=== PATIENT | male | born 1955 | race Asian ===

== ENCOUNTER 2020-03-23 00:35 | Inpatient (IN) | payer MEDICAID ==
[~2020-03-23] VITALS: Ht 165.1 cm; Wt 55.1 kg
[2020-03-23] VITALS (12 sets, daily range): BP systolic 88–109; BP diastolic 52–86
--- NOTE | 2020-03-23 00:36 | NUR ---
ED Nurse Note: patient brought in by ambulance with complaints chest pain x 1 week, 07/08. Patient presents lethargic, A&Ox4 and with an 18 at left AC. Will continue to monitor for orders.
--- NOTE | 2020-03-23 00:53 | Emergency Room Report ---
History of Present Illness General Source: EMS Present Illness HPI Patient is a 64-year-old male presents via ambulance after increased chest tightness and shortness of breath. Patient had onset of symptoms approximately 1 week ago. Patient had reportedly had prior history of anemia as well as some lung disease and is currently a smoker approximately 2 cigarettes a day. Prior history of congestive heart failure and atrial fibrillation. He is on anticoagulation but does not recall what medication he is taking. Reports having previous episodes of CHF in the past most recently seen at [facility] approximate 1 month ago. Denies any fever. Reports having intermittent cough. Increased orthopnea. Patient had not been having any vomiting but does report having some generalized abdominal pain. Patient does report having some prior history of anemia as well. Denies any bleeding. Allergies: Coded Allergies: No Known Allergies (Unverified , 03/23/20) COVID-19 Screening Contact w/high risk pt: No Recent Travel to affected area: No Experienced COVID-19 symptoms?: No Patient History Past Medical History: see triage record Reviewed Nursing Documentation: PMH: Agreed; PSxH: Agreed Review of Systems All Other Systems: negative except mentioned in HPI Physical Exam Vital Signs Date Time Temp Pulse Resp B/P (MAP) Pulse Ox O2 Delivery O2 Flow Rate FiO2 03/23/20 00:36 98.4 100 18 102/86 (91) 96 Room Air Sp02 EP Interpretation: reviewed, normal General Appearance: normal inspection, well appearing, no apparent distress, alert, GCS 15 Head: atraumatic ENT: normal ENT inspection, hearing grossly normal, normal voice Neck: normal inspection, full range of motion, supple, no bony tend Respiratory: normal inspection, lungs clear, normal breath sounds, no respiratory distress, no retraction, no wheezing Cardiovascular #1: regular rate, rhythm, no edema, JVD Gastrointestinal: normal inspection, normal bowel sounds, non tender, soft, no guarding, no hernia Genitourinary: no CVA tenderness Musculoskeletal: normal inspection, back normal, normal range of motion Neurologic: alert, motor strength/tone normal, quality auditor III-XII nml as tested, oriented x3, responsive, speech normal, normal inspection Psychiatric: normal inspection, judgement/insight normal, mood/affect normal Medical Decision Making Diagnostic Impression: Primary Impression: Chest pain Additional Impressions: Renal insufficiency Anemia CHF (congestive heart failure) ER Course Patient presented for chest pain and shortness of breath. Differential diagnosis include was not limited to pneumonia, myocardial infarction, congestive heart failure exacerbation, COPD, pericardial effusion among others. Because of complexity of patient's case laboratory tests and imaging studies were ordered. Patient's initial EKG showed atrial fibrillation with normal ventricular response. Patient had been given IV fluids by EMS however he does appear to be somewhat fluid overloaded. He was noted to be mildly hypotensive.Patient was given IV Bumex. Dr. hRoda Beverly was contacted for [facility] for panel physician admission Laboratory Tests Test 03/23/20 00:56 White Blood Count 7.0 K/UL (4.8-10.8) Red Blood Count 3.26 M/UL (4.70-6.10) L Hemoglobin 8.3 G/DL (14.2-18.0) L Hematocrit 25.4 % (42.0-52.0) L Mean Corpuscular Volume 78 FL (80-99) L Mean Corpuscular Hemoglobin 25.4 PG (27.0-31.0) L Mean Corpuscular Hemoglobin Concent 32.6 G/DL (32.0-36.0) Red Cell Distribution Width 20.1 % (11.6-14.8) H Platelet Count 244 K/UL (150-450) Mean Platelet Volume 6.5 FL (6.5-10.1) Neutrophils (%) (Auto) 68.4 % (45.0-75.0) Lymphocytes (%) (Auto) 20.1 % (20.0-45.0) Monocytes (%) (Auto) 10.0 % (1.0-10.0) Eosinophils (%) (Auto) 0.3 % (0.0-3.0) Basophils (%) (Auto) 1.2 % (0.0-2.0) Prothrombin Time 24.9 SEC (9.30-11.50) H Prothrombin Time INR 2.5 (0.9-1.1) H Activated Partial Thromboplast Time 35 SEC (23-33) H D-Dimer 0.49 mg/L FEU (0.00-0.49) Sodium Level 139 MMOL/L (136-145) Potassium Level 4.9 MMOL/L (3.5-5.1) Chloride Level 101 MMOL/L (98-107) Carbon Dioxide Level 23 MMOL/L (21-32) Anion Gap 15 mmol/L (5-15) Blood Urea Nitrogen 62 mg/dL (7-18) H Creatinine 3.3 MG/DL (0.55-1.30) H Estimated Glomerular Filtration Rate 19.0 mL/min (>60) Glucose Level 64 MG/DL (74-106) L Calcium Level 9.0 MG/DL (8.5-10.1) Total Bilirubin 1.5 MG/DL (0.2-1.0) H Direct Bilirubin 1.2 MG/DL (0.0-0.3) H Aspartate Amino Transferase (AST) 67 U/L (15-37) H Alanine Aminotransferase (ALT) 54 U/L (12-78) Alkaline Phosphatase 207 U/L (46-116) H Troponin I 0.030 ng/mL (0.000-0.056) Pro-B-Type Natriuretic Peptide 70380 pg/mL (0-125) H Total Protein 7.6 G/DL (6.4-8.2) Albumin 3.4 G/DL (3.4-5.0) Globulin 4.2 g/dL Albumin/Globulin Ratio 0.8 (1.0-2.7) L Lipase 181 U/L (73-393) Differential Total Cells Counted Neutrophils % (Manual) Lymphocytes % (Manual) Monocytes % (Manual) Eosinophils % (Manual) Basophils % (Manual) Band Neutrophils Platelet Estimate Platelet Morphology Hypochromasia Anisocytosis Microcytosis Spherocytes Hemoglobin A1c Magnesium Level Triglycerides Level Cholesterol Level LDL Cholesterol HDL Cholesterol Cholesterol/HDL Ratio Thyroid Stimulating Hormone (TSH) Test 03/24/20 09:10 White Blood Count 5.1 K/UL (4.8-10.8) Red Blood Count 3.16 M/UL (4.70-6.10) L Hemoglobin 7.9 G/DL (14.2-18.0) L Hematocrit 24.8 % (42.0-52.0) L Mean Corpuscular Volume 79 FL (80-99) L Mean Corpuscular Hemoglobin 25.0 PG (27.0-31.0) L Mean Corpuscular Hemoglobin Concent 31.8 G/DL (32.0-36.0) L Red Cell Distribution Width 19.8 % (11.6-14.8) H Platelet Count 227 K/UL (150-450) Mean Platelet Volume 6.2 FL (6.5-10.1) L Neutrophils (%) (Auto) % (45.0-75.0) Lymphocytes (%) (Auto) % (20.0-45.0) Monocytes (%) (Auto) % (1.0-10.0) Eosinophils (%) (Auto) % (0.0-3.0) Basophils (%) (Auto) % (0.0-2.0) Differential Total Cells Counted 100 Neutrophils % (Manual) 80 % (45-75) H Lymphocytes % (Manual) 11 % (20-45) L Monocytes % (Manual) 8 % (1-10) Eosinophils % (Manual) 0 % (0-3) Basophils % (Manual) 1 % (0-2) Band Neutrophils 0 % (0-8) Platelet Estimate Adequate Platelet Morphology Normal Hypochromasia 3+ Anisocytosis 2+ Microcytosis 1+ Urine Random Total Protein Urine Random Sodium Urine Creatinine EKG Diagnostic Results Rate: normal Rhythm: NSR ST Segments: no acute changes Last Vital Signs Date Time Temp Pulse Resp B/P (MAP) Pulse Ox O2 Delivery O2 Flow Rate FiO2 03/23/20 00:36 98.4 100 18 102/86 (91) 96 Room Air Status: unchanged Disposition: ADMITTED INPATIENT Condition: Serious Scripts Unable to Obtain Active Prescriptions or Reported MedBalta Groves MD Mar 23, 2020 00:53
[2020-03-23] MEDS ORDERED: Nitroglycerin 2% oint pkt TOPIC ONE (01:00)
[2020-03-23 01:11] LABS: BASOPHILS % (AUTO) 1.2 % (0.0-2.0); EOSINOPHILS % (AUTO) 0.3 % (0.0-3.0); HEMATOCRIT 25.4 % (42.0-52.0); HEMOGLOBIN 8.3 G/DL (14.2-18.0); LYMPHOCYTES % (AUTO) 20.1 % (20.0-45.0); MEAN CORPUSCULAR VOLUME 78 FL (80-99); NEUTROPHILS % (AUTO) 68.4 % (45.0-75.0); PLATELET COUNT 244 K/UL (150-450); RED BLOOD COUNT 3.26 M/UL (4.70-6.10); RED CELL DISTRIBUTION WIDTH 20.1 % (11.6-14.8)
[2020-03-23 01:14] LABS: ANION GAP 15 mmol/L (5-15); BLOOD UREA NITROGEN 62 mg/dL (7-18); CARBON DIOXIDE 23 MMOL/L (21-32); CHLORIDE 101 MMOL/L (98-107); CREATININE 3.3 MG/DL (0.55-1.30); POTASSIUM 4.9 MMOL/L (3.5-5.1); SODIUM 139 MMOL/L (136-145)
--- NOTE | 2020-03-23 01:20 | NUR ---
ED Nurse Note: Patient is sleeping with no physical s/s of acute distress. Will continue to monitor for testing results.
[2020-03-23 01:26] LABS: ALANINE AMINOTRANSFERASE 54 U/L (12-78); ALBUMIN 3.4 G/DL (3.4-5.0); ALBUMIN/GLOBULIN RATIO 0.8 (1.0-2.7); ALKALINE PHOSPHATASE 207 U/L (46-116); ASPARTATE AMINO TRANSFERASE 67 U/L (15-37); BILIRUBIN,TOTAL 1.5 MG/DL (0.2-1.0)
[2020-03-23 01:29] LABS: BILIRUBIN,DIRECT 1.2 MG/DL (0.0-0.3)
[2020-03-23] MEDS ORDERED: Bumetanide 0.25mg/ml 4ml IV ONE (01:45)
[2020-03-23 01:47] LABS: INR 2.5 (0.9-1.1)
--- NOTE | 2020-03-23 02:08 | Diagnostic Imaging Report ---
EXAM: XR Chest, 1 View CLINICAL HISTORY: SOB TECHNIQUE: Frontal view of the chest. COMPARISON: No relevant prior studies available. FINDINGS: Lungs: See below. Pleural space: Probable left-sided pleural effusion and atelectasis. Heart: Marked enlargement the cardiomediastinal silhouette. Underlying pericardial effusion is not excluded. Consider CT of the chest. Mediastinum: Unremarkable. Bones/joints: Unremarkable. IMPRESSION: 1. Marked enlargement the cardiomediastinal silhouette. Underlying pericardial effusion is not excluded. Consider CT of the chest. 2. Probable left-sided pleural effusion and atelectasis.
--- NOTE | 2020-03-23 02:34 | NUR ---
ED Nurse Note: Patient currently sleeping with no s/s of acute distress. will continue to monitor.
--- NOTE | 2020-03-23 03:34 | NUR ---
ED Nurse Note: Patient is sleeping with no s/s of acute distress. Will continue to monitor trending low blood pressure. Note that patient is on left lateral side and BP reflects change in position.
--- NOTE | 2020-03-23 04:44 | NUR ---
ED Nurse Note: Patient is sleeping with no physical s/s of acute distress.
--- NOTE | 2020-03-23 05:23 | NUR ---
ED Nurse Note: Patietn able to ambulate to the restroom with steady gait. Patient provided with ice upon request. Will continue to monitor for impending orders.
[2020-03-23] MEDS ORDERED: Heparin 5000 units/ml inj SUBQ SCH (06:00)
--- NOTE | 2020-03-23 06:30 | NUR ---
ED Nurse Note: Called covering MD to render admit orders.
[2020-03-23] MEDS ORDERED: HYDROmorphone 2mg tab ORAL PRN (06:45)
[2020-03-23] MEDS ORDERED: fentaNYL 100 mcg/2 mL IV ONE (06:45)
--- NOTE | 2020-03-23 07:13 | NUR ---
HAND-OFF: Report given to Bhumi Heath RN.
--- NOTE | 2020-03-23 08:00 | NUR ---
ED Nurse Note: Established another IV site on RT hand 20G, intact and patent.
--- NOTE | 2020-03-23 08:02 | NUR ---
ED Nurse Note: Received pt from ZENA Cast. Pt on bed, sleeping, VSS on RA, NAD noted. Breathing unlabored and spontaneous. Safety measures in placed. Morning bloodworks collected, called and verified labs. Will continue to monitor pt.
--- NOTE | 2020-03-23 08:10 | Consultation ---
History of Present Illness General Chief Complaint: Chest Pain Present Illness Allergies: Coded Allergies: No Known Allergies (Unverified , 03/23/20) Medication History Unable to Obtain Active Prescriptions or Reported Meds Patient History Healthcare decision maker Resuscitation status Advanced Directive on File Physical Exam Last 24 Hour Vital Signs Date Time Temp Pulse Resp B/P (MAP) Pulse Ox O2 Delivery O2 Flow Rate FiO2 03/23/20 07:35 98.4 85 24 89/70 98 Room Air 03/23/20 07:12 98.4 03/23/20 05:15 98.4 89 22 93/60 98 Room Air 03/23/20 04:26 98.4 92 25 89/58 96 Room Air 03/23/20 03:00 98.4 92 27 97/64 96 Room Air 03/23/20 02:00 98.4 91 24 88/65 97 Room Air 03/23/20 01:00 98.4 95 30 94/63 97 Room Air 03/23/20 00:52 98/65 03/23/20 00:36 98.4 100 18 102/86 (91) 96 Room Air 03/23/20 00:36 98.4 100 18 102/86 96 Room Air 03/23/20 00:36 100 18 Room Air Intake and Output 03/22/20 03/23/20 19:00 07:00 Intake Total 0 ml Balance 0 ml Intake Oral 0 ml Laboratory Tests Test 03/23/20 00:56 03/23/20 07:48 White Blood Count 7.0 K/UL (4.8-10.8) Red Blood Count 3.26 M/UL (4.70-6.10) L Hemoglobin 8.3 G/DL (14.2-18.0) L Hematocrit 25.4 % (42.0-52.0) L Mean Corpuscular Volume 78 FL (80-99) L Mean Corpuscular Hemoglobin 25.4 PG (27.0-31.0) L Mean Corpuscular Hemoglobin Concent 32.6 G/DL (32.0-36.0) Red Cell Distribution Width 20.1 % (11.6-14.8) H Platelet Count 244 K/UL (150-450) Mean Platelet Volume 6.5 FL (6.5-10.1) Neutrophils (%) (Auto) 68.4 % (45.0-75.0) Lymphocytes (%) (Auto) 20.1 % (20.0-45.0) Monocytes (%) (Auto) 10.0 % (1.0-10.0) Eosinophils (%) (Auto) 0.3 % (0.0-3.0) Basophils (%) (Auto) 1.2 % (0.0-2.0) Prothrombin Time 24.9 SEC (9.30-11.50) H Prothromb Time International Ratio 2.5 (0.9-1.1) H Activated Partial Thromboplast Time 35 SEC (23-33) H D-Dimer 0.49 mg/L FEU (0.00-0.49) Sodium Level 139 MMOL/L (136-145) Potassium Level 4.9 MMOL/L (3.5-5.1) Chloride Level 101 MMOL/L (98-107) Carbon Dioxide Level 23 MMOL/L (21-32) Anion Gap 15 mmol/L (5-15) Blood Urea Nitrogen 62 mg/dL (7-18) H Creatinine 3.3 MG/DL (0.55-1.30) H Estimat Glomerular Filtration Rate 19.0 mL/min (>60) Glucose Level 64 MG/DL (74-106) L Calcium Level 9.0 MG/DL (8.5-10.1) Total Bilirubin 1.5 MG/DL (0.2-1.0) H Direct Bilirubin 1.2 MG/DL (0.0-0.3) H Aspartate Amino Transf (AST/SGOT) 67 U/L (15-37) H Alanine Aminotransferase (ALT/SGPT) 54 U/L (12-78) Alkaline Phosphatase 207 U/L (46-116) H Troponin I 0.030 ng/mL (0.000-0.056) Pending Pro-B-Type Natriuretic Peptide 59400 pg/mL (0-125) H Total Protein 7.6 G/DL (6.4-8.2) Albumin 3.4 G/DL (3.4-5.0) Globulin 4.2 g/dL Albumin/Globulin Ratio 0.8 (1.0-2.7) L Lipase 181 U/L (73-393) Height (Feet): 5 Height (Inches): 5.00 Weight (Pounds): 150 Medications Current Medications Medications (Trade) Dose Ordered Sig/Hunter Route PRN Reason Start Time Stop Time Status Last Admin Dose Admin Aspirin (ASA) 81 mg DAILY ORAL 03/23/20 09:00 05/07/20 08:59 Dextrose (Dextrose 50%) 25 ml Q30M PRN IV Hypoglycemia 03/23/20 04:15 06/21/20 04:14 Dextrose (Dextrose 50%) 50 ml Q30M PRN IV Hypoglycemia 03/23/20 04:15 06/21/20 04:14 Docusate Sodium (Colace) 100 mg EVERY 12 HOURS ORAL 03/23/20 09:00 04/22/20 08:59 Heparin Sodium (Porcine) (Heparin 5000 units/ml) 5,000 units EVERY 8 HOURS SUBQ 03/23/20 06:00 05/07/20 05:59 03/23/20 05:50 Hydromorphone HCl (Dilaudid) 2 mg Q4HR PRN ORAL Severe Pain (Pain Scale 7-10) 03/23/20 06:45 03/30/20 06:44 UNV Ondansetron HCl (Zofran) 4 mg Q6H PRN IVP Nausea & Vomiting 03/23/20 04:15 04/22/20 04:14 Gini Spann M.D. Mar 23, 2020 08:10
[2020-03-23] MEDS ORDERED: Aspirin Baby 81mg ORAL SCH (09:00)
--- NOTE | 2020-03-23 09:10 | NUR ---
ED Nurse Note: US tech at bedside.
--- NOTE | 2020-03-23 11:00 | NUR ---
NURSE NOTES: Received report from ZENA Garnett @ ER. The patient came in for chest pain x 4 days with accompanying symptoms of shortness of breath, chest pain, chest tightness, orthopnea. Administered Nitro patch, diuretic, and pain medication but still has 5/10 pain on chest. The patient's belongings checked with the patient at the bedside and confirmed by the patient and two nurses. Medical, surgical, allergy, and social history taken by the primary nurse. Admitting EKG strip obtained. Unable to do medication reconciliation since he does not have medication list and does not recall the name of the medication. The patient has R hand 20G intact and patent. Per patient, he does not have POLST. Initial vital signs taken. The patient's skin is intact. Paged Dr. Fernandez regarding the admission order and the patient's persistent chest pain even with the interventions at ER. Will continue plan of care.
--- NOTE | 2020-03-23 11:58 | History and Physical ---
History of Present Illness General Date patient seen: Mar 23, 2020 Reason for Hospitalization: Chest Pain Present Illness HPI 64 yo M w/ MMP PMHx A fib, CHF, Smoker w/ possible COPD presented t the ED via EMS for several days of CP and SOB. Pt reports 1 week of progressive chest heaviness and pain. Pain is described as moderate, constant w/ waxing and waning , not worse w/ exertion. Also reports bl le edema and dry cough. In the ED pt was a febrile and with BP in the 80s to 100 systolic. Labs notable for BNP 13783, Tn neg x 2, EKG a fib w/ good rate control, CXR showed pleural effusion. Cr 3.3 (baseline unknown), AST elevated and Bili elevated. Pt received nitro and bumex in the ED. At time of evaluation pt was c/w persistent chest discomfort, LE edam was trace, + JVD. Pt unable to provide medication list or recall, somewhat of a poor historian. Allergies: Coded Allergies: No Known Allergies (Unverified , 03/23/20) COVID-19 Screening Contact w/high risk pt: No Recent Travel to affected area: No Experienced COVID-19 symptoms?: No Medication History Unable to Obtain Active Prescriptions or Reported Meds Patient History History Provided By: Patient, Medical Record Healthcare decision maker Resuscitation status Advanced Directive on File Review of Systems Constitutional: Denies: no symptoms, see HPI, chills, sweats, fever, malaise, weakness, other Eye: Denies: no symptoms, see HPI, eye pain, blurred vision, tearing, double vision, nose pain, nose congestion, acuity changes, discharge, other Respiratory: Reports: see HPI Cardiovascular: Reports: see HPI Gastrointestinal: Denies: no symptoms, see HPI, abdominal pain, constipation, diarrhea, nausea, vomiting, melena, hematemesis, other Genitourinary: Denies: no symptoms, see HPI, discharge, dysuria, frequency, hematuria, pain, retention, incontinence, urgency, vag bleed/dc, other Musculoskeletal: Denies: no symptoms, see HPI, back pain, gout, joint pain, joint swelling, muscle pain, muscle stiffness, other Neurological: Denies: no symptoms, see HPI, headache, numbness, paresthesia, seizure, tingling, tremors, focal weakness, syncope, dizziness, other Physical Exam General Appearance: WD/WN, no apparent distress, alert HEENT: normocephalic, atraumatic, PERRL, EOMI Neck: normal alignment, supple Respiratory/Chest: lungs clear, normal breath sounds, no respiratory distress, no accessory muscle use Cardiovascular/Chest: normal peripheral pulses, regularly irregular, no gallop/ murmur, JVD Abdomen: normal bowel sounds, non tender, soft Extremities: no edema Neurologic: associate chemist II-XII grossly normal, alert, normal mood/affect Last 24 Hour Vital Signs Date Time Temp Pulse Resp B/P (MAP) Pulse Ox O2 Delivery O2 Flow Rate FiO2 03/23/20 10:18 98.3 84 22 109/71 98 Room Air 03/23/20 10:09 98.3 84 22 109/71 98 Room Air 03/23/20 07:35 98.4 85 24 89/70 98 Room Air 03/23/20 07:12 98.4 03/23/20 05:15 98.4 89 22 93/60 98 Room Air 03/23/20 04:26 98.4 92 25 89/58 96 Room Air 03/23/20 03:00 98.4 92 27 97/64 96 Room Air 03/23/20 02:00 98.4 91 24 88/65 97 Room Air 03/23/20 01:00 98.4 95 30 94/63 97 Room Air 03/23/20 00:52 98/65 03/23/20 00:36 98.4 100 18 102/86 (91) 96 Room Air 03/23/20 00:36 98.4 100 18 102/86 96 Room Air 03/23/20 00:36 100 18 Room Air Intake and Output 03/22/20 03/23/20 19:00 07:00 Intake Total 0 ml Balance 0 ml Intake Oral 0 ml Laboratory Tests Test 03/23/20 00:56 03/23/20 07:48 White Blood Count 7.0 K/UL (4.8-10.8) Red Blood Count 3.26 M/UL (4.70-6.10) L Hemoglobin 8.3 G/DL (14.2-18.0) L Hematocrit 25.4 % (42.0-52.0) L Mean Corpuscular Volume 78 FL (80-99) L Mean Corpuscular Hemoglobin 25.4 PG (27.0-31.0) L Mean Corpuscular Hemoglobin Concent 32.6 G/DL (32.0-36.0) Red Cell Distribution Width 20.1 % (11.6-14.8) H Platelet Count 244 K/UL (150-450) Mean Platelet Volume 6.5 FL (6.5-10.1) Neutrophils (%) (Auto) 68.4 % (45.0-75.0) Lymphocytes (%) (Auto) 20.1 % (20.0-45.0) Monocytes (%) (Auto) 10.0 % (1.0-10.0) Eosinophils (%) (Auto) 0.3 % (0.0-3.0) Basophils (%) (Auto) 1.2 % (0.0-2.0) Prothrombin Time 24.9 SEC (9.30-11.50) H Prothromb Time International Ratio 2.5 (0.9-1.1) H Activated Partial Thromboplast Time 35 SEC (23-33) H D-Dimer 0.49 mg/L FEU (0.00-0.49) Sodium Level 139 MMOL/L (136-145) Potassium Level 4.9 MMOL/L (3.5-5.1) Chloride Level 101 MMOL/L (98-107) Carbon Dioxide Level 23 MMOL/L (21-32) Anion Gap 15 mmol/L (5-15) Blood Urea Nitrogen 62 mg/dL (7-18) H Creatinine 3.3 MG/DL (0.55-1.30) H Estimat Glomerular Filtration Rate 19.0 mL/min (>60) Glucose Level 64 MG/DL (74-106) L Calcium Level 9.0 MG/DL (8.5-10.1) Total Bilirubin 1.5 MG/DL (0.2-1.0) H Direct Bilirubin 1.2 MG/DL (0.0-0.3) H Aspartate Amino Transf (AST/SGOT) 67 U/L (15-37) H Alanine Aminotransferase (ALT/SGPT) 54 U/L (12-78) Alkaline Phosphatase 207 U/L (46-116) H Troponin I 0.030 ng/mL (0.000-0.056) 0.016 ng/mL (0.000-0.056) Pro-B-Type Natriuretic Peptide 82624 pg/mL (0-125) H Total Protein 7.6 G/DL (6.4-8.2) Albumin 3.4 G/DL (3.4-5.0) Globulin 4.2 g/dL Albumin/Globulin Ratio 0.8 (1.0-2.7) L Lipase 181 U/L (73-393) Height (Feet): 5 Height (Inches): 5.00 Weight (Pounds): 150 Medications Current Medications Medications (Trade) Dose Ordered Sig/Hunter Route PRN Reason Start Time Stop Time Status Last Admin Dose Admin Acetaminophen/ Hydrocodone Bitart ([place] 5/325) 1 tab Q4H PRN ORAL Moderate Pain (Pain Scale 4-6) 03/23/20 11:30 03/30/20 11:29 Aspirin (ASA) 81 mg DAILY ORAL 03/23/20 09:00 05/07/20 08:59 Dextrose (Dextrose 50%) 25 ml Q30M PRN IV Hypoglycemia 03/23/20 04:15 06/21/20 04:14 Dextrose (Dextrose 50%) 50 ml Q30M PRN IV Hypoglycemia 03/23/20 04:15 06/21/20 04:14 Docusate Sodium (Colace) 100 mg EVERY 12 HOURS ORAL 03/23/20 09:00 04/22/20 08:59 Enoxaparin Sodium (Lovenox) 70 mg Q24H SUBQ 03/23/20 14:00 06/21/20 13:59 Hydromorphone HCl (Dilaudid) 2 mg Q4H PRN ORAL Severe Pain (Pain Scale 7-10) 03/23/20 06:45 03/30/20 06:44 Ondansetron HCl (Zofran) 4 mg Q6H PRN IVP Nausea & Vomiting 03/23/20 04:15 04/22/20 04:14 Assessment/Plan Assessment/Plan: 64 yo M w/ MMP PMHx A fib, CHF, Smoker w/ possible COPD presented t the ED via EMS for several days of CP and SOB. Pt reports 1 week of progressive chest heaviness and pain. Pain is described as moderate, constant w/ waxing and waning , not worse w/ exertion. Also reports bl le edema and dry cough. #Chest pain, atypical #Acute decompensated CHF #A fib, rate controlled - admit to in pt - cardiology consult - bilingual operator - Lovenox tx dose for a fib (dose adj per pharm for renal insuf) (need to clarify home ac regimen) - serial tn/ekg - TTE - s/p bumex 1mg IV x 1 in ED - start bumex 1mg IV BID - goal neg 100oml / day, strict I/Os - trend chem, goal k > 4, mag > 2 - pain control - supportive care #COPD, suspected #Current smoker #Pleural effusion, due to CHF - nebs prn sob/wheeze - nicotine patch offered, refused - ctm resp status and effusion, may need throa - sup o2 as needed #AALIYAH, suspect cardiorenal syndrome (baseline cr unknown) - diuresis as above - trend cr - avoid nephro toxic meds #Transaminitis, AST elevation #Hyperbilirubinemia - suspect due to hepatic congestion - trend LFTs - can consider ABD us if not improving #FEN/PPx - 1500cc fluid restriction - trend chem, replete lytes as needed - cardiac diet - Full ac for a fib as above FULL CODE I spent 65 min on this case and 29 min was dedicated to counseling and care coordination including discussion including communication w/ overnight coverage , consultants, RN at bedside and ER MD. Time of this note may not reflect the time of the clinical encounter. Adama Davis MD Mar 23, 2020 11:58
[2020-03-23] MEDS: Docusate 100mg cap ORAL SCH ×2 (12:00→21:41)
--- NOTE | 2020-03-23 12:00 | NUR ---
NURSE NOTES: Late administration of 0900 medication as the patient came on the floor later than 1100. Also administered Post as PRN medication for moderate pain. The patient's vital signs stable. Per patient, chest pain got improved over time. Will closely monitor the patient.
[2020-03-23] MEDS: HYDROcodone/Acetamin 5/325 tab ORAL PRN ×2 (12:01→17:29)
--- NOTE | 2020-03-23 12:30 | NUR ---
NURSE NOTES: Informed Dr. Luther regarding new consult. The patient is sleeping on the bed without acute distress or shortness of breath. Will continue plan of care.
--- NOTE | 2020-03-23 13:10 | NUR ---
NURSE NOTES: Notified Dr. Luther and Dr. Davis regarding abnormal condition of EF of 10-15%, continuous chest pain, extreme bradycardia episode with lowest HR of 38, and A fib. Will await for the order. Will continue plan of care.
[2020-03-23] MEDS ORDERED: Enoxaparin 80mg Inj SUBQ SCH (14:00)
--- NOTE | 2020-03-23 15:00 | NUR ---
NURSE NOTES: Dr. Luther at the bedside assessed the patient. Dr. Luther ordered fixed dose of Dobutamine drip and central line placement for dobutamine drip. Charge nurse was notified. Dr. Castelan and ER paged for placement and awaiting for response. Will closely monitor the patient.
--- NOTE | 2020-03-23 15:16 | Cardiac Electrophysiology PN ---
Subjective Subjective [id number] Objective Last 24 Hour Vital Signs Date Time Temp Pulse Resp B/P (MAP) Pulse Ox O2 Delivery O2 Flow Rate FiO2 03/23/20 12:44 Room Air 03/23/20 12:00 97.3 94 18 102/59 (73) 97 03/23/20 11:40 82 03/23/20 11:00 97.2 81 18 97/67 (77) 99 03/23/20 10:39 100 03/23/20 10:18 98.3 84 22 109/71 98 Room Air 03/23/20 10:09 98.3 84 22 109/71 98 Room Air 03/23/20 07:35 98.4 85 24 89/70 98 Room Air 03/23/20 07:12 98.4 03/23/20 05:15 98.4 89 22 93/60 98 Room Air 03/23/20 04:26 98.4 92 25 89/58 96 Room Air 03/23/20 03:00 98.4 92 27 97/64 96 Room Air 03/23/20 02:00 98.4 91 24 88/65 97 Room Air 03/23/20 01:00 98.4 95 30 94/63 97 Room Air 03/23/20 00:52 98/65 03/23/20 00:36 98.4 100 18 102/86 (91) 96 Room Air 03/23/20 00:36 98.4 100 18 102/86 96 Room Air 03/23/20 00:36 100 18 Room Air Intake and Output 03/22/20 03/23/20 19:00 07:00 Intake Total 0 ml Balance 0 ml Intake Oral 0 ml Laboratory Tests Test 03/23/20 00:56 03/23/20 07:48 White Blood Count 7.0 K/UL (4.8-10.8) Red Blood Count 3.26 M/UL (4.70-6.10) L Hemoglobin 8.3 G/DL (14.2-18.0) L Hematocrit 25.4 % (42.0-52.0) L Mean Corpuscular Volume 78 FL (80-99) L Mean Corpuscular Hemoglobin 25.4 PG (27.0-31.0) L Mean Corpuscular Hemoglobin Concent 32.6 G/DL (32.0-36.0) Red Cell Distribution Width 20.1 % (11.6-14.8) H Platelet Count 244 K/UL (150-450) Mean Platelet Volume 6.5 FL (6.5-10.1) Neutrophils (%) (Auto) 68.4 % (45.0-75.0) Lymphocytes (%) (Auto) 20.1 % (20.0-45.0) Monocytes (%) (Auto) 10.0 % (1.0-10.0) Eosinophils (%) (Auto) 0.3 % (0.0-3.0) Basophils (%) (Auto) 1.2 % (0.0-2.0) Prothrombin Time 24.9 SEC (9.30-11.50) H Prothromb Time International Ratio 2.5 (0.9-1.1) H Activated Partial Thromboplast Time 35 SEC (23-33) H D-Dimer 0.49 mg/L FEU (0.00-0.49) Sodium Level 139 MMOL/L (136-145) Potassium Level 4.9 MMOL/L (3.5-5.1) Chloride Level 101 MMOL/L (98-107) Carbon Dioxide Level 23 MMOL/L (21-32) Anion Gap 15 mmol/L (5-15) Blood Urea Nitrogen 62 mg/dL (7-18) H Creatinine 3.3 MG/DL (0.55-1.30) H Estimat Glomerular Filtration Rate 19.0 mL/min (>60) Glucose Level 64 MG/DL (74-106) L Calcium Level 9.0 MG/DL (8.5-10.1) Total Bilirubin 1.5 MG/DL (0.2-1.0) H Direct Bilirubin 1.2 MG/DL (0.0-0.3) H Aspartate Amino Transf (AST/SGOT) 67 U/L (15-37) H Alanine Aminotransferase (ALT/SGPT) 54 U/L (12-78) Alkaline Phosphatase 207 U/L (46-116) H Troponin I 0.030 ng/mL (0.000-0.056) 0.016 ng/mL (0.000-0.056) Pro-B-Type Natriuretic Peptide 35930 pg/mL (0-125) H Total Protein 7.6 G/DL (6.4-8.2) Albumin 3.4 G/DL (3.4-5.0) Globulin 4.2 g/dL Albumin/Globulin Ratio 0.8 (1.0-2.7) L Lipase 181 U/L (73-393) Jovi Luther MD Mar 23, 2020 15:16
[2020-03-23] MEDS ORDERED: DOBUTamine 250mg/250ml Premix 250 ML IV SCH ×2 (16:00)
--- NOTE | 2020-03-23 16:00 | NUR ---
NURSE NOTES: Unable to administer Dobutamine drip at this time since central line access has not placed yet. Paged ER again but was told that she cannot insert at this time due to heavy workload. Paged Dr. Castelan and was told that he is going for surgery and can come back for central line placement [address] Luther was notified regarding the case that the primary nurse was not able to start Dobutamine drip due to no access and no one is available to insert central line at this time. Called pharmacy to make sure and was told that dobutamine drip should be preferably administered via central line. Will wait for Dr. Castelan to come for insertion. Will closely monitor the patient.
[2020-03-23] MEDS ORDERED: Bumetanide 0.25mg/ml 4ml IV SCH (18:00)
--- NOTE | 2020-03-23 18:00 | NUR ---
NURSE NOTES: Medication administered per order. Awaiting for Dr. Castelan to insert central line to start dobutamine drip. Will closely monitor the patient.
[2020-03-23 18:22] LABS: ANION GAP 14 mmol/L (5-15); BLOOD UREA NITROGEN 71 mg/dL (7-18); CALCIUM 8.8 MG/DL (8.5-10.1); CARBON DIOXIDE 23 MMOL/L (21-32); CHLORIDE 103 MMOL/L (98-107); CREATININE 3.2 MG/DL (0.55-1.30); POTASSIUM 5.4 MMOL/L (3.5-5.1); SODIUM 140 MMOL/L (136-145)
--- NOTE | 2020-03-23 19:00 | NUR ---
NURSE NOTES: Dr. Castelan at the bedside for central line insertion. Right femoral central line inserted per order for dobutamine drip. Will closely monitor the patient. Will continue plan of care.
[2020-03-23] MEDS ORDERED: Lidocaine 1% 10mg/ml/EPI 0.01mg/ml 30ml INJ ONE (19:15)
[2020-03-23] MEDS ORDERED: Lidocaine 1% 10mg/ml/EPI 0.01mg/ml 30ml INJ SCH (19:15)
--- NOTE | 2020-03-23 19:30 | NUR ---
HAND-OFF: Report given to ZENA Stewart. The patient is resting on the bed without acute distress or shortness of breath. The patient's bed in the lowest position, call light in reach, and fall and aspiration precaution reinforce. IV site on R hand 20G intact and patent. Central line on right femoral is intact. 2L NC per order and saturation within normal range. Endorsed plan of care.
--- NOTE | 2020-03-23 19:35 | NUR ---
NURSE NOTES: Received pt from ZENA Alatorre. will continue plan of care.
--- NOTE | 2020-03-23 19:58 | Consultation ---
History of Present Illness General Date patient seen: Mar 23, 2020 Reason for Hospitalization: Chest Pain Present Illness HPI 64-year-old male presented with shortness of breath chest pain currently admitted for medical care and management identified to have renal insufficiency , hypotension, abnormal labs. On admission surgery called to evaluate and assist with care. Patient seen, patient [place], chart reviewed. Patient found to be very hypotensive requiring pressors. Central line/central venous catheter indicated and recommended. Remainder care plan as below. Patient Thai speaking is awake alert and responsive. Discussed with nursing staff as translation patient doing well no complaints at this time. Labs noted vitals noted imaging noted Allergies: Coded Allergies: No Known Allergies (Unverified , 03/23/20) COVID-19 Screening Contact w/high risk pt: No Recent Travel to affected area: No Experienced COVID-19 symptoms?: No COVID-19 symptoms experienced: Shortness of Breath Medication History Unable to Obtain Active Prescriptions or Reported Meds Patient History Limited by: language barrier History Provided By: Medical Record, PMD Healthcare decision maker Resuscitation status Full Code Advanced Directive on File Past Medical/Surgical History Past Medical/Surgical History: (1) Sepsis (2) Chest pain Review of Systems Review of Symptoms General ROS: no weight loss or fever Psychological ROS: no depression or mood changes, no memory loss Ophthalmic ROS: no visual changes or eye irritation ENT ROS: no nasal congestion, hearing loss, dizziness Allergy and Immunology ROS: no allergic symptoms or urticaria Hematological and Lymphatic ROS: no swollen glands, unusual bleeding or bruising Endocrine ROS: no polyuria, polydipsia, weight changes, temperature intolerance Respiratory ROS: no cough, shortness of breath, or wheezing Cardiovascular ROS: no chest pain or dyspnea on exertion Gastrointestinal ROS: denies abdominal pain, bright red blood in stool. Musculoskeletal ROS: no myalgias or arthralgias Neurological ROS: no TIA or stroke symptoms Dermatological ROS: no new or changing skin lesions, rashes or pruritis Physical Exam Physical Exam General appearance: alert, cooperative, no distress, appears stated age Head: Normocephalic, without obvious abnormality, atraumatic Eyes: conjunctivae/corneas clear. PERRL, EOM's intact. Fundi benign Throat: Lips, mucosa, and tongue normal. Teeth and gums normal Neck: supple, symmetrical, trachea midline, no adenopathy, thyroid: not enlarged, symmetric, no tenderness/mass/nodules, no carotid bruit and no JVD Lungs: clear to auscultation bilaterally Heart: regular rate and rhythm, S1, S2 normal, no murmur, click, rub or gallop Abdomen: soft, non-tender. Bowel sounds normal. No masses, no organomegaly Extremities: extremities normal, atraumatic, no cyanosis or edema Pulses: 2+ and symmetric Skin: Skin color, texture, turgor normal. No rashes or lesions Neurologic: Grossly normal Last 24 Hour Vital Signs Date Time Temp Pulse Resp B/P (MAP) Pulse Ox O2 Delivery O2 Flow Rate FiO2 03/23/20 16:00 Nasal Cannula 2.0 03/23/20 16:00 2.0 03/23/20 16:00 97.0 99 18 90/52 (65) 100 03/23/20 15:13 72 03/23/20 12:44 Room Air 03/23/20 12:00 97.3 94 18 102/59 (73) 97 03/23/20 12:00 Nasal Cannula 2.0 03/23/20 11:40 82 03/23/20 11:00 97.2 81 18 97/67 (77) 99 03/23/20 10:39 100 03/23/20 10:18 98.3 84 22 109/71 98 Room Air 03/23/20 10:09 98.3 84 22 109/71 98 Room Air 03/23/20 07:35 98.4 85 24 89/70 98 Room Air 03/23/20 07:12 98.4 03/23/20 05:15 98.4 89 22 93/60 98 Room Air 03/23/20 04:26 98.4 92 25 89/58 96 Room Air 03/23/20 03:00 98.4 92 27 97/64 96 Room Air 03/23/20 02:00 98.4 91 24 88/65 97 Room Air 03/23/20 01:00 98.4 95 30 94/63 97 Room Air 03/23/20 00:52 98/65 03/23/20 00:36 98.4 100 18 102/86 (91) 96 Room Air 03/23/20 00:36 98.4 100 18 102/86 96 Room Air 03/23/20 00:36 100 18 Room Air Intake and Output 03/22/20 03/23/20 19:00 07:00 Intake Total 0 ml Balance 0 ml Intake Oral 0 ml Laboratory Tests Test 03/23/20 00:56 03/23/20 07:48 03/23/20 17:45 White Blood Count 7.0 K/UL (4.8-10.8) Red Blood Count 3.26 M/UL (4.70-6.10) L Hemoglobin 8.3 G/DL (14.2-18.0) L Hematocrit 25.4 % (42.0-52.0) L Mean Corpuscular Volume 78 FL (80-99) L Mean Corpuscular Hemoglobin 25.4 PG (27.0-31.0) L Mean Corpuscular Hemoglobin Concent 32.6 G/DL (32.0-36.0) Red Cell Distribution Width 20.1 % (11.6-14.8) H Platelet Count 244 K/UL (150-450) Mean Platelet Volume 6.5 FL (6.5-10.1) Neutrophils (%) (Auto) 68.4 % (45.0-75.0) Lymphocytes (%) (Auto) 20.1 % (20.0-45.0) Monocytes (%) (Auto) 10.0 % (1.0-10.0) Eosinophils (%) (Auto) 0.3 % (0.0-3.0) Basophils (%) (Auto) 1.2 % (0.0-2.0) Prothrombin Time 24.9 SEC (9.30-11.50) H Prothromb Time International Ratio 2.5 (0.9-1.1) H Activated Partial Thromboplast Time 35 SEC (23-33) H D-Dimer 0.49 mg/L FEU (0.00-0.49) Sodium Level 139 MMOL/L (136-145) 140 MMOL/L (136-145) Potassium Level 4.9 MMOL/L (3.5-5.1) 5.4 MMOL/L (3.5-5.1) H Chloride Level 101 MMOL/L (98-107) 103 MMOL/L (98-107) Carbon Dioxide Level 23 MMOL/L (21-32) 23 MMOL/L (21-32) Anion Gap 15 mmol/L (5-15) 14 mmol/L (5-15) Blood Urea Nitrogen 62 mg/dL (7-18) H 71 mg/dL (7-18) H Creatinine 3.3 MG/DL (0.55-1.30) H 3.2 MG/DL (0.55-1.30) H Estimat Glomerular Filtration Rate 19.0 mL/min (>60) 19.7 mL/min (>60) Glucose Level 64 MG/DL (74-106) L 273 MG/DL (74-106) #H Calcium Level 9.0 MG/DL (8.5-10.1) 8.8 MG/DL (8.5-10.1) Total Bilirubin 1.5 MG/DL (0.2-1.0) H Direct Bilirubin 1.2 MG/DL (0.0-0.3) H Aspartate Amino Transf (AST/SGOT) 67 U/L (15-37) H Alanine Aminotransferase (ALT/SGPT) 54 U/L (12-78) Alkaline Phosphatase 207 U/L (46-116) H Troponin I 0.030 ng/mL (0.000-0.056) 0.016 ng/mL (0.000-0.056) 0.030 ng/mL (0.000-0.056) Pro-B-Type Natriuretic Peptide 79473 pg/mL (0-125) H Total Protein 7.6 G/DL (6.4-8.2) Albumin 3.4 G/DL (3.4-5.0) Globulin 4.2 g/dL Albumin/Globulin Ratio 0.8 (1.0-2.7) L Lipase 181 U/L (73-393) Height (Feet): 5 Height (Inches): 5.00 Weight (Pounds): 150 Medications Current Medications Medications (Trade) Dose Ordered Sig/Hunter Route PRN Reason Start Time Stop Time Status Last Admin Dose Admin Acetaminophen/ Hydrocodone Bitart ([place] 5/325) 1 tab Q4H PRN ORAL Moderate Pain (Pain Scale 4-6) 03/23/20 11:30 03/30/20 11:29 03/23/20 17:29 Aspirin (ASA) 81 mg DAILY ORAL 03/23/20 09:00 05/07/20 08:59 03/23/20 12:00 Bumetanide (Bumex) 1 mg BID IV 03/23/20 18:00 04/22/20 17:59 03/23/20 17:29 Dextrose (Dextrose 50%) 25 ml Q30M PRN IV Hypoglycemia 03/23/20 04:15 06/21/20 04:14 Dextrose (Dextrose 50%) 50 ml Q30M PRN IV Hypoglycemia 03/23/20 04:15 06/21/20 04:14 Dobutamine HCl 250 ml @ 20.412 mls/ hr Q24H IV 03/23/20 16:00 06/21/20 15:59 Docusate Sodium (Colace) 100 mg EVERY 12 HOURS ORAL 03/23/20 09:00 04/22/20 08:59 03/23/20 12:00 Enoxaparin Sodium (Lovenox) 70 mg Q24H SUBQ 03/23/20 14:00 06/21/20 13:59 03/23/20 14:12 Hydromorphone HCl (Dilaudid) 2 mg Q4H PRN ORAL Severe Pain (Pain Scale 7-10) 03/23/20 06:45 03/30/20 06:44 Lidocaine/ Epinephrine (Lidocaine 1%/ Epi 0.01mg 30ml) 30 ml ONCE INJ 03/23/20 19:15 03/23/20 21:00 Ondansetron HCl (Zofran) 4 mg Q6H PRN IVP Nausea & Vomiting 03/23/20 04:15 04/22/20 04:14 Assessment/Plan Problem List: (1) Renal insufficiency Assessment & Plan: 64-year-old male presented with shortness of breath chest pain currently admitted for medical care and management identified to have renal insufficiency, hypotension, abnormal labs. ICD Codes: N28.9 - Disorder of kidney and ureter, unspecified SNOMED: 479900858, 184175304 (2) Abnormal LFTs Assessment & Plan: Ultrasound required Ordered Trend labs We will follow-up ICD Codes: R94.5 - Abnormal results of liver function studies SNOMED: 904080097 (3) Hypotension Assessment & Plan: Patient with hypotension requiring pressors. Eval myself at the bedside central venous catheter indicated recommended Discussed with medical team nursing staff and care plan with patient Please see procedure note we will follow with recommendations ICD Codes: I95.9 - Hypotension, unspecified SNOMED: 17009291 Chuck Castelan Apr 25, 2020 19:58
--- NOTE | 2020-03-23 20:00 | Operative Note - PDOC ---
Operative Note Operative Note Date of Operation/Procedure: Mar 23, 2020 Pre-op Diagnosis: Hypotension Procedure: Right femoral central venous catheter insertion Post-op Diagnosis: same as pre-op Surgeon: Chuck Castelan MD Anesthesia: local Specimen: none Complications: none Condition: unstable Estimated Blood Loss: minimal Drains: none Implant(s) used?: No Indications for Procedure Please see consult note Description of Procedure Patient was made comfortable the bedside after all risk medicine alternatives discussed. Consent was obtained. Right groin was prepped draped in sterile surgical fashion. Right femoral vein was cannulated on first stick. Good venous flow noted. Guidewire was placed over the needle needle removed. Small skin incision was made around the guidewire and dilator was used. Triple-lumen catheter was placed over the guidewire without complication. Guidewire removed and discarded. All 3 ports flushed and aspirated appropriately without complication. Line sutured in place. Dressings applied. Patient taught procedure well. Will monitor. Okay to use for pressors immediately. Chuck Castelan Mar 23, 2020 20:00
--- NOTE | 2020-03-23 20:15 | NUR ---
NURSE NOTES: pt is observed resting in bed, AO X4, Occitan speaking, no s/sx of pain noted at this time. pt is on 2 L O2 via NC, tolerating well; no s/sx of respiratory distress noted. RH 20 G and LAC 20 G IV sites are patent and intact, asymptomatic. Right femoral central line is patent and intact, Dobutamine drip started at fixed rate of 5 mcg/kg/hr as ordered per MD. BP: 93/65, HR: 94, RR: 20, sat: 100%, Temp: 97.5. urinal at bedside. bed in lowest position and locked, siderails up X2, call light within reach. will continue to monitor.
[2020-03-23] MEDS ORDERED: Dyna-Hex 2% Top Sol 2oz TOPIC ONE (21:45)
[2020-03-24] VITALS: BP 112/61
--- NOTE | 2020-03-24 02:44 | Consultation ---
DATE OF CONSULTATION: 03/23/2020 CARDIOLOGY CONSULTATION CONSULTING PHYSICIAN: Jovi Luther MD. REFERRING PHYSICIAN: Dilshad Fernandez MD. REASON FOR CONSULTATION: Management of congestive heart failure and atrial fibrillation. HISTORY OF PRESENT ILLNESS: The patient is a 64-year-old gentleman with history of hypertension, congestive heart failure for 5-7 years per the patient without prior myocardial infarction or coronary artery disease, history of chronic atrial fibrillation, was on blood thinner at home as well as history of COPD, who was brought to the emergency room by paramedics for several days of increasing shortness of breath as well as chest tightness. In the emergency room, the patient had blood pressure in 80s to 100 and BNP of 15,000. Troponin were negative and EKG showed atrial fibrillation with controlled ventricular response. Chest x-ray showed pleural effusion. Creatinine was 3.3. Cardiology consultation was obtained for further evaluation. REVIEW OF SYSTEMS: Negative other than what is mentioned in the history of present illness. PAST MEDICAL HISTORY: As mentioned above. Apparently, he gets cardiology care at [facility]. FAMILY HISTORY: Noncontributory. SOCIAL HISTORY: He lives at home. Does smoke or drink alcohol. PHYSICAL EXAMINATION: VITAL SIGNS: Show blood pressure of 102/59, pulse 94, respirations 18, and temperature 97.3. HEAD AND NECK: Show positive JVD. LUNGS: Decreased breath sounds. CARDIOVASCULAR: Shows irregular S1 and S2 with no gallop or murmur. ABDOMEN: Soft. EXTREMITIES: A 1+ pitting edema. LABORATORY AND DIAGNOSTIC DATA: His chest x-ray showed increased cardiac silhouette and vascular congestion. The heart essentially completely effaces the whole chest. Labs show white count of 7, hemoglobin of 8.2, hematocrit 25.4, and platelet count is 244,000. Sodium 139, potassium is 4.9, BUN of 62, creatinine of 3.3, and glucose of 64. Troponin, negative x2. BNP is more than 15,000. ASSESSMENT AND PLAN: 1. Exacerbation of congestive heart failure in this patient with severe cardiomyopathy for many years. He is already on Bumex 1 mg IV b.i.d. Add hydralazine and Isordil to his medical regimen if the blood pressure allows. We will hold off on Coreg as the patient gets bradycardia with heart rate dropping to 30s and in atrial fibrillation. Avoid PRAVEEN inhibitor and angiotensin-receptor blockers in view of acute renal failure and creatinine of more than 3. 2. Atrial fibrillation. The rate is currently controlled. It actually goes in the 30s, off any AV-regis blocking agents. 3. Hypertension. Continue current medical therapy. 4. Renal failure, creatinine of 3.3. Keep the patient on Bumex. We may need to start the patient on dobutamine drip to improve contractility especially in view of the patient's renal failure. In the meantime, we will try to get the records from [facility] as he usually gets most of his cares at that center. 5. Anemia, hemoglobin of 8.3. Thank you very much for allowing me to participate in the care of this patient. Please do not hesitate to contact me for any questions regarding my evaluation. Jovi Luther M.D. DR: YAN JOB#: [id number] CC:
--- NOTE | 2020-03-24 03:44 | NUR ---
NURSE NOTES: Right femoral central catheter dressing noted to have bleeding. changed dressing using sterile technique. AM labs drawn via central line. pt tolerated well. no s/sx of distress noted. will continue to monitor.
[2020-03-24 04:00] VITALS: BP 111/70
[2020-03-24 06:01] LABS: HEMATOCRIT 22.4 % (42.0-52.0); HEMOGLOBIN 7.4 G/DL (14.2-18.0); MEAN CORPUSCULAR VOLUME 78 FL (80-99); PLATELET COUNT 219 K/UL (150-450); RED BLOOD COUNT 2.86 M/UL (4.70-6.10); RED CELL DISTRIBUTION WIDTH 19.8 % (11.6-14.8); WHITE BLOOD COUNT 5.3 K/UL (4.8-10.8)
[2020-03-24 06:24] LABS: ANION GAP 12 mmol/L (5-15); BLOOD UREA NITROGEN 71 mg/dL (7-18); CALCIUM 8.6 MG/DL (8.5-10.1); CARBON DIOXIDE 28 MMOL/L (21-32); CHLORIDE 103 MMOL/L (98-107); CHOLESTEROL 51 MG/DL (< 200); HDL CHOLESTEROL 20 MG/DL (40-60); POTASSIUM 4.4 MMOL/L (3.5-5.1); SODIUM 142 MMOL/L (136-145); TRIGLYCERIDES 62 MG/DL (30-150)
[2020-03-24] MEDS: DOBUTamine 250mg/250ml Premix 250 ML IV SCH ×2 (07:00→22:11)
--- NOTE | 2020-03-24 07:33 | NUR ---
HAND-OFF: Report given to ZENA Alatorre. endorsed plan of care.
--- NOTE | 2020-03-24 07:35 | NUR ---
NURSE NOTES: Received report from ZENA Stewart. The patient is resting on the bed without acute distress or shortness of breath. The patient's bed in the lowest position, call light in reach, and fall and aspiration precaution reinforced. IV site on R hand 20G and L AC 20G intact and patent. R femoral central line intact and patent and central line dressing changed on 03/24/2020 which is intact and patent. On R femoral central line, Dobutamine running per order and stable vital signs noted. The patient is on 2L NC per order and saturation within normal range. The patient is on NPO for abdominal ultrasound. Notified Dr. Davis regarding abnormal lab including hemoglobin. Will continue plan of care.
[2020-03-24 08:00] VITALS: BP 120/68
--- NOTE | 2020-03-24 08:00 | NUR ---
NURSE NOTES: Per Dr. Davis repeat CBC to confirm hemoglobin level. Will carry out the order as soon as possible. Will continue plan of care.
[2020-03-24] MEDS ORDERED: HYDROmorphone 2mg tab ORAL PRN (08:30)
[2020-03-24] MEDS: Docusate 100mg cap ORAL SCH ×2 (09:20→21:57)
[2020-03-24] MEDS: Bumetanide 0.25mg/ml 4ml IV SCH ×2 (09:20→17:11)
[2020-03-24] MEDS: Aspirin Baby 81mg ORAL SCH (09:20)
--- NOTE | 2020-03-24 09:30 | NUR ---
NURSE NOTES: Administered medication per order. The patient has stable vital signs. Will continue plan of care.
[2020-03-24 10:21] LABS: HEMATOCRIT 24.8 % (42.0-52.0); HEMOGLOBIN 7.9 G/DL (14.2-18.0); MEAN CORPUSCULAR VOLUME 79 FL (80-99); PLATELET COUNT 227 K/UL (150-450); RED BLOOD COUNT 3.16 M/UL (4.70-6.10); RED CELL DISTRIBUTION WIDTH 19.8 % (11.6-14.8); WHITE BLOOD COUNT 5.1 K/UL (4.8-10.8)
--- NOTE | 2020-03-24 10:35 | General Progress Note ---
Assessment/Plan Assessment/Plan: 64 yo M w/ MMP PMHx A fib, CHF, Smoker w/ possible COPD presented t the ED via EMS for several days of CP and SOB. Pt reports 1 week of progressive chest heaviness and pain. Pain is described as moderate, constant w/ waxing and waning , not worse w/ exertion. Also reports bl le edema and dry cough. #Chest pain, atypical #Acute decompensated CHF #A fib, rate controlled - cardiology consult, appreciate recs - surgery consult, s/p central line placement 03/24 - dobutamine gtt - bumex 1mg IV BID - panel monitor - DC AC given dec in Hb - serial tn/ekg -> neg - TTE -> EF < 15% - trend chem, goal k > 4, mag > 2 - pain control - supportive care #Acute anemia, suspect blood loss on AC - repeat CBC this am closer to baselie from admit - hold AC - FOBT - Trend CBC - Transfuse for Hb < 7 #COPD, suspected #Current smoker #Pleural effusion, due to CHF - nebs prn sob/wheeze - nicotine patch offered, refused - ctm resp status and effusion, may need throa - sup o2 as needed #AALIYAH, suspect cardiorenal syndrome (baseline cr unknown) - diuresis as above - trend cr - avoid nephro toxic meds #Hyperkalemia - resolved - ctm #Transaminitis, AST elevation #Hyperbilirubinemia - suspect due to hepatic congestion - trend LFTs - can consider ABD us if not improving #FEN/PPx - 1500cc fluid restriction - trend chem, replete lytes as needed - cardiac diet - Full ac for a fib as above FULL CODE I spent 38 min on this case and 23 min was dedicated to counseling and care coordination including discussion including communication w/ overnight coverage , consultants, RN. Time of this note may not reflect the time of the clinical encounter. Subjective Date patient seen: Mar 24, 2020 Allergies: Coded Allergies: No Known Allergies (Unverified , 03/23/20) Subjective Dobuta gtt started Net neg 700 cc so far on diuretics Denies CP SOB improved Hb 7.4 this am, 7.9 on repeat (8.3 on admit) 12 pt ros neg except as above Objective Last 24 Hour Vital Signs Date Time Temp Pulse Resp B/P (MAP) Pulse Ox O2 Delivery O2 Flow Rate FiO2 03/24/20 08:00 97.0 88 18 120/68 (85) 100 03/24/20 07:59 98 03/24/20 04:00 96.4 89 18 111/70 (84) 100 03/24/20 04:00 2.0 03/24/20 04:00 Nasal Cannula 2.0 03/24/20 03:43 85 03/24/20 00:00 Nasal Cannula 2.0 03/24/20 00:00 96.3 85 18 112/61 (78) 100 03/24/20 00:00 2.0 03/23/20 23:49 99 03/23/20 20:13 93/65 03/23/20 20:00 2.0 03/23/20 20:00 Nasal Cannula 2.0 03/23/20 20:00 97.5 94 20 93/65 (74) 100 03/23/20 19:20 90 03/23/20 16:00 Nasal Cannula 2.0 03/23/20 16:00 2.0 03/23/20 16:00 97.0 99 18 90/52 (65) 100 03/23/20 15:13 72 03/23/20 12:44 Room Air 03/23/20 12:00 97.3 94 18 102/59 (73) 97 03/23/20 12:00 Nasal Cannula 2.0 03/23/20 11:40 82 03/23/20 11:00 97.2 81 18 97/67 (77) 99 03/23/20 10:39 100 Intake and Output 03/23/20 03/24/20 19:00 07:00 Intake Total 800 ml 179.2854 ml Output Total 1700 ml Balance 800 ml -1520.7146 ml Intake Oral 800 ml IV Total 179.2854 ml Output Urine Total 1700 ml # Voids 3 4 Laboratory Tests 03/23/20 17:45: Sodium Level 140, Potassium Level 5.4H, Chloride Level 103, Carbon Dioxide Level 23, Anion Gap 14, Blood Urea Nitrogen 71H, Creatinine 3.2H, Estimat Glomerular Filtration Rate 19.7, Glucose Level 273#H, Calcium Level 8.8, Troponin I 0.030 03/24/20 03:30: Sodium Level 142, Potassium Level 4.4, Chloride Level 103, Carbon Dioxide Level 28, Anion Gap 12, Blood Urea Nitrogen 71H, Creatinine 3.0H, Estimat Glomerular Filtration Rate 21.2, Glucose Level 172#H, Calcium Level 8.6, White Blood Count 5.3, Red Blood Count 2.86L, Hemoglobin 7.4L, Hematocrit 22.4L, Mean Corpuscular Volume 78L, Mean Corpuscular Hemoglobin 25.8L, Mean Corpuscular Hemoglobin Concent 32.9, Red Cell Distribution Width 19.8H, Platelet Count 219, Mean Platelet Volume 6.0L, Neutrophils (%) (Auto) , Lymphocytes (%) (Auto) , Monocytes (%) (Auto) , Eosinophils (%) (Auto) , Basophils (%) (Auto) , Differential Total Cells Counted 100, Neutrophils % (Manual) 71, Lymphocytes % ( Manual) 18L, Monocytes % (Manual) 9, Eosinophils % (Manual) 1, Basophils % ( Manual) 1, Band Neutrophils 0, Platelet Estimate Adequate, Platelet Morphology Normal, Hypochromasia 3+, Anisocytosis 2+, Microcytosis 1+, Spherocytes 1+, Prothrombin Time 20.3H, Prothromb Time International Ratio 2.0H, Hemoglobin A1c 9.5H, Magnesium Level 2.1, Pro-B-Type Natriuretic Peptide 00324O, Triglycerides Level 62, Cholesterol Level 51, LDL Cholesterol 28, HDL Cholesterol 20L, Cholesterol/HDL Ratio 2.6L, Thyroid Stimulating Hormone (TSH) 2.047 03/24/20 09:10: White Blood Count 5.1, Red Blood Count 3.16L, Hemoglobin 7.9L, Hematocrit 24.8L , Mean Corpuscular Volume 79L, Mean Corpuscular Hemoglobin 25.0L, Mean Corpuscular Hemoglobin Concent 31.8L, Red Cell Distribution Width 19.8H, Platelet Count 227, Mean Platelet Volume 6.2L, Neutrophils (%) (Auto) , Lymphocytes (%) (Auto) , Monocytes (%) (Auto) , Eosinophils (%) (Auto) , Basophils (%) (Auto) , Neutrophils % (Manual) [Pending], Lymphocytes % (Manual) [Pending], Platelet Estimate [Pending], Platelet Morphology [Pending] Height (Feet): 5 Height (Inches): 5.00 Weight (Pounds): 149 Objective General Appearance: WD/WN, no apparent distress, alert HEENT: normocephalic, atraumatic, PERRL, EOMI Neck: normal alignment, supple Respiratory/Chest: lungs clear, normal breath sounds, no respiratory distress, no accessory muscle use Cardiovascular/Chest: normal peripheral pulses, regularly irregular, no gallop/ murmur, JVD Abdomen: normal bowel sounds, non tender, soft Extremities: no edema Neurologic: mill controller II-XII grossly normal, alert, normal mood/affect Adama Davis MD Mar 24, 2020 10:35
--- NOTE | 2020-03-24 10:52 | Consultation ---
History of Present Illness General Chief Complaint: Chest Pain Reason for Consultation: Acute kidney injury Present Illness HPI This is a 64 year old male with past medical history of hypertension, CHF, afib , COPD, tobacco use disorder presents with progressively worsening lower extremity edema and dyspnea on exertion. On presentation BNP noted to be markedly elevated, chest xrat with evidence of pleural effusion and pulmonary vascular congestion. Cr makedly elevated at 3.2- patient not aware of baseline kidney function. 2d echo with EF less than 15% Allergies: Coded Allergies: No Known Allergies (Unverified , 03/23/20) Medication History Unable to Obtain Active Prescriptions or Reported Meds Patient History Healthcare decision maker Resuscitation status Full Code Advanced Directive on File Review of Systems All Other Systems: negative except mentioned in HPI Physical Exam General Appearance: no apparent distress Lines, tubes and drains: peripheral HEENT: normocephalic Neck: non-tender Respiratory/Chest: chest wall non-tender, crackles/rales Cardiovascular/Chest: normal peripheral pulses, normal rate, regularly irregular Abdomen: normal bowel sounds, non tender, soft Extremities: moderate edema Neurologic: alert, oriented x 3, responsive Last 24 Hour Vital Signs Date Time Temp Pulse Resp B/P (MAP) Pulse Ox O2 Delivery O2 Flow Rate FiO2 03/24/20 08:00 97.0 88 18 120/68 (85) 100 03/24/20 07:59 98 03/24/20 04:00 96.4 89 18 111/70 (84) 100 03/24/20 04:00 2.0 03/24/20 04:00 Nasal Cannula 2.0 03/24/20 03:43 85 03/24/20 00:00 Nasal Cannula 2.0 03/24/20 00:00 96.3 85 18 112/61 (78) 100 03/24/20 00:00 2.0 03/23/20 23:49 99 03/23/20 20:13 93/65 03/23/20 20:00 2.0 03/23/20 20:00 Nasal Cannula 2.0 03/23/20 20:00 97.5 94 20 93/65 (74) 100 03/23/20 19:20 90 03/23/20 16:00 Nasal Cannula 2.0 03/23/20 16:00 2.0 03/23/20 16:00 97.0 99 18 90/52 (65) 100 03/23/20 15:13 72 03/23/20 12:44 Room Air 03/23/20 12:00 97.3 94 18 102/59 (73) 97 03/23/20 12:00 Nasal Cannula 2.0 03/23/20 11:40 82 03/23/20 11:00 97.2 81 18 97/67 (77) 99 Intake and Output 03/23/20 03/24/20 19:00 07:00 Intake Total 800 ml 179.2854 ml Output Total 1700 ml Balance 800 ml -1520.7146 ml Intake Oral 800 ml IV Total 179.2854 ml Output Urine Total 1700 ml # Voids 3 4 Laboratory Tests Test 03/23/20 17:45 03/24/20 03:30 03/24/20 09:10 Sodium Level 140 MMOL/L (136-145) 142 MMOL/L (136-145) Potassium Level 5.4 MMOL/L (3.5-5.1) H 4.4 MMOL/L (3.5-5.1) Chloride Level 103 MMOL/L (98-107) 103 MMOL/L (98-107) Carbon Dioxide Level 23 MMOL/L (21-32) 28 MMOL/L (21-32) Anion Gap 14 mmol/L (5-15) 12 mmol/L (5-15) Blood Urea Nitrogen 71 mg/dL (7-18) H 71 mg/dL (7-18) H Creatinine 3.2 MG/DL (0.55-1.30) H 3.0 MG/DL (0.55-1.30) H Estimat Glomerular Filtration Rate 19.7 mL/min (>60) 21.2 mL/min (>60) Glucose Level 273 MG/DL (74-106) #H 172 MG/DL (74-106) #H Calcium Level 8.8 MG/DL (8.5-10.1) 8.6 MG/DL (8.5-10.1) Troponin I 0.030 ng/mL (0.000-0.056) White Blood Count 5.3 K/UL (4.8-10.8) 5.1 K/UL (4.8-10.8) Red Blood Count 2.86 M/UL (4.70-6.10) L 3.16 M/UL (4.70-6.10) L Hemoglobin 7.4 G/DL (14.2-18.0) L 7.9 G/DL (14.2-18.0) L Hematocrit 22.4 % (42.0-52.0) L 24.8 % (42.0-52.0) L Mean Corpuscular Volume 78 FL (80-99) L 79 FL (80-99) L Mean Corpuscular Hemoglobin 25.8 PG (27.0-31.0) L 25.0 PG (27.0-31.0) L Mean Corpuscular Hemoglobin Concent 32.9 G/DL (32.0-36.0) 31.8 G/DL (32.0-36.0) L Red Cell Distribution Width 19.8 % (11.6-14.8) H 19.8 % (11.6-14.8) H Platelet Count 219 K/UL (150-450) 227 K/UL (150-450) Mean Platelet Volume 6.0 FL (6.5-10.1) L 6.2 FL (6.5-10.1) L Neutrophils (%) (Auto) % (45.0-75.0) % (45.0-75.0) Lymphocytes (%) (Auto) % (20.0-45.0) % (20.0-45.0) Monocytes (%) (Auto) % (1.0-10.0) % (1.0-10.0) Eosinophils (%) (Auto) % (0.0-3.0) % (0.0-3.0) Basophils (%) (Auto) % (0.0-2.0) % (0.0-2.0) Differential Total Cells Counted 100 100 Neutrophils % (Manual) 71 % (45-75) 80 % (45-75) H Lymphocytes % (Manual) 18 % (20-45) L 11 % (20-45) L Monocytes % (Manual) 9 % (1-10) 8 % (1-10) Eosinophils % (Manual) 1 % (0-3) 0 % (0-3) Basophils % (Manual) 1 % (0-2) 1 % (0-2) Band Neutrophils 0 % (0-8) 0 % (0-8) Platelet Estimate Adequate Adequate Platelet Morphology Normal Normal Hypochromasia 3+ 3+ Anisocytosis 2+ 2+ Microcytosis 1+ 1+ Spherocytes 1+ Prothrombin Time 20.3 SEC (9.30-11.50) H Prothromb Time International Ratio 2.0 (0.9-1.1) H Hemoglobin A1c 9.5 % (4.3-6.0) H Magnesium Level 2.1 MG/DL (1.8-2.4) Pro-B-Type Natriuretic Peptide 98361 pg/mL (0-125) H Triglycerides Level 62 MG/DL (30-150) Cholesterol Level 51 MG/DL (< 200) LDL Cholesterol 28 mg/dL (<100) HDL Cholesterol 20 MG/DL (40-60) L Cholesterol/HDL Ratio 2.6 (3.3-4.4) L Thyroid Stimulating Hormone (TSH) 2.047 uiU/mL (0.358-3.740) Height (Feet): 5 Height (Inches): 5.00 Weight (Pounds): 149 Medications Current Medications Medications (Trade) Dose Ordered Sig/Hunter Route PRN Reason Start Time Stop Time Status Last Admin Dose Admin Acetaminophen/ Hydrocodone Bitart (Eldred 5/325) 1 tab Q4H PRN ORAL Moderate Pain (Pain Scale 4-6) 03/24/20 11:30 03/30/20 11:29 Aspirin (ASA) 81 mg DAILY ORAL 03/24/20 09:00 05/07/20 08:59 03/24/20 09:20 Bumetanide (Bumex) 1 mg BID IV 03/24/20 09:00 04/22/20 17:59 03/24/20 09:20 Chlorhexidine Gluconate (Aruna-Hex 2%) 1 applic DAILY@2000 TOPIC 03/24/20 20:00 06/22/20 19:59 Dextrose (Dextrose 50%) 25 ml Q30M PRN IV Hypoglycemia 03/24/20 08:15 06/21/20 04:14 Dextrose (Dextrose 50%) 50 ml Q30M PRN IV Hypoglycemia 03/24/20 08:15 06/21/20 04:14 Dobutamine HCl 250 ml @ 20.412 mls/ hr Q24H IV 03/24/20 16:00 06/21/20 15:59 Docusate Sodium (Colace) 100 mg EVERY 12 HOURS ORAL 03/24/20 09:00 04/22/20 08:59 03/24/20 09:20 Enoxaparin Sodium (Lovenox) 70 mg Q24H SUBQ 03/24/20 14:00 06/21/20 13:59 Hydromorphone HCl (Dilaudid) 2 mg Q4H PRN ORAL Severe Pain (Pain Scale 7-10) 03/24/20 08:30 03/30/20 08:29 Ondansetron HCl (Zofran) 4 mg Q6H PRN IVP Nausea & Vomiting 03/24/20 08:30 04/22/20 08:29 Assessment/Plan Diagnosis [place] I: #AALIYAH on CKD- ?--unclear baseline - cardiorenal syndrome 1 #acute on chronic combined systolic and diastolic CHF #afib- rate controlled #anemia- of CKD? #elevated liver enzymes #h/o HTN #COPD #tobacco use disorder - check urine chem - check UTP/cr - renal US - continue bumex at 1mg BID - follow echo-. EF < 15% - on dobutamin drip - monitor UOP- strict- place bansal - daily weights - monitor and replete lytes - check vitamin D, PTH, phos - continue asa - prbc transfusion today - target hemoglobin > 7.5 - check iron panel and ferritin - consider epo pending above time spent 72 min- > 50% on care coordination and counselling Gini Spann M.D. Mar 24, 2020 10:51
--- NOTE | 2020-03-24 11:00 | NUR ---
NURSE NOTES: Dr. Martin at the bedside assessed the patient. Dr. Spann ordered 1 unit PRBC transfusion, renal ultrasound, Bennett insertion for strict I&O, urine sample, and 1.5L strict fluid restriction. Will carry out the order as soon as possible. Will continue plan of care. Addendum: 03/24/20 at 1334 by Nikolas Looney RN NURSE NOTES: Dr. Luther made mutual agreement regarding 1 unit PRBC transfusion. Acknowledged the order. Will continue plan of care.
[2020-03-24] MEDS ORDERED: HYDROcodone/Acetamin 5/325 tab ORAL PRN (11:30)
--- NOTE | 2020-03-24 11:30 | NUR ---
NURSE NOTES: Reported Dr. Spann regarding refusal of Bennett insertion per patient. Dr. Spann said that it is okay not insert the Bennett as long as the primary nurse do strict I&O. Education provided to the patient. Will closely monitor the patient.
[2020-03-24 12:00] VITALS: BP 114/66
--- NOTE | 2020-03-24 12:00 | NUR ---
NURSE NOTES: Faxed retrieval of medical record request to [facility] of 2D ECHO, supervisor stitching department note, and discharge summary note per Dr. Luther's order. Will wait for fax back. Will continue plan of care.
--- NOTE | 2020-03-24 12:15 | NUR ---
NURSE NOTES: Sent the urine sample down to the lab. Will follow up the result. Will continue plan of care.
--- NOTE | 2020-03-24 12:30 | NUR ---
NURSE NOTES: The patient is stable without acute distress or shortness of breath. Stable vital signs noted. Will continue plan of care.
[2020-03-24] MEDS ORDERED: Enoxaparin 80mg Inj SUBQ SCH (14:00)
--- NOTE | 2020-03-24 14:30 | NUR ---
NURSE NOTES: Started 1 unit PRBC transfusion per order. The patient is tolerating well. Will continue plan of care.
--- NOTE | 2020-03-24 14:45 | NUR ---
NURSE NOTES: Vital signs retaken 15 min after 1 unit PRBC transfusion. Vital signs stable. Physical symptoms stable. Will closely monitor the patient. Will continue plan of care.
[2020-03-24 16:00] VITALS: BP 111/63
--- NOTE | 2020-03-24 17:30 | NUR ---
NURSE NOTES: Completed 1 unit PRBC transfusion per order in a safe manner. Vital signs stable. Will closely monitor the patient. Will continue plan of care.
--- NOTE | 2020-03-24 18:10 | NUR ---
NURSE NOTES: PRN Zofran administered for nausea. Will closely monitor the patient. Will continue plan of care.
--- NOTE | 2020-03-24 18:30 | NUR ---
NURSE NOTES: The patient is stable without acute distress or shortness of breath. Per patient, his nausea got improved with medication. Will continue plan of care.
--- NOTE | 2020-03-24 19:15 | NUR ---
HAND-OFF: Report given to ZENA Lan. The patient is stable without acute distress or shortness of breath. Endorsed plan of care.
[2020-03-24 19:20] LABS: BASOPHILS % (AUTO) 1.2 % (0.0-2.0); EOSINOPHILS % (AUTO) 0.5 % (0.0-3.0); HEMATOCRIT 27.3 % (42.0-52.0); HEMOGLOBIN 8.5 G/DL (14.2-18.0); LYMPHOCYTES % (AUTO) 12.5 % (20.0-45.0); MEAN CORPUSCULAR VOLUME 83 FL (80-99); MONOCYTES % (AUTO) 8.6 % (1.0-10.0); NEUTROPHILS % (AUTO) 77.1 % (45.0-75.0); PLATELET COUNT 219 K/UL (150-450); RED CELL DISTRIBUTION WIDTH 22.4 % (11.6-14.8)
[2020-03-24 20:00] VITALS: BP 129/76
[2020-03-24] MEDS ORDERED: Dyna-Hex 2% Top Sol 2oz TOPIC SCH (20:00)
--- NOTE | 2020-03-24 20:00 | NUR ---
NURSE NOTES: Received pt from Celi Looney RN. resting in bed, A/O X4, Tajik speaking, denies pain. no distress notes. Respiration even and unlabored. On 2L/NC. RH 20 G and LAC 20 G IV sites are patent and intact w/o redness or swelling. Right femoral central line is patent and intact w/Dobutamine drip started at fixed rate of 5 mcg/kg/hr as ordered. VSS. Afebrile. SR on quality assurance monitor. Voiding via urinal of clear yellow urine. Bed in lowest position and locked in place. Side rails up X2. Bed alarm engaged. call light within reach. will POC.
[2020-03-24] MEDS: Dyna-Hex 2% Top Sol 2oz TOPIC SCH (21:56)
--- NOTE | 2020-03-24 21:59 | Surgery Progress Note ---
Surgery Progress Note Subjective Procedure Performed Right femoral central venous catheter insertion Symptoms: improved, passing flatus, pain decreased Objective Last 24 Hour Vital Signs Date Time Temp Pulse Resp B/P (MAP) Pulse Ox O2 Delivery O2 Flow Rate FiO2 03/24/20 20:00 2.0 03/24/20 20:00 97.5 67 18 129/76 (93) 98 03/24/20 20:00 67 03/24/20 20:00 Nasal Cannula 2.0 03/24/20 16:00 97.3 95 18 111/63 (79) 100 03/24/20 16:00 Nasal Cannula 2.0 03/24/20 16:00 2.0 03/24/20 15:43 98 03/24/20 12:00 Nasal Cannula 2.0 03/24/20 12:00 2.0 03/24/20 12:00 97.0 93 18 114/66 (82) 100 03/24/20 11:40 92 03/24/20 08:00 97.0 88 18 120/68 (85) 100 03/24/20 08:00 Nasal Cannula 2.0 03/24/20 08:00 2.0 03/24/20 07:59 98 03/24/20 07:00 102/68 03/24/20 04:00 96.4 89 18 111/70 (84) 100 03/24/20 04:00 2.0 03/24/20 04:00 Nasal Cannula 2.0 03/24/20 03:43 85 03/24/20 00:00 Nasal Cannula 2.0 03/24/20 00:00 96.3 85 18 112/61 (78) 100 03/24/20 00:00 2.0 03/23/20 23:49 99 I&O Intake and Output 03/23/20 03/24/20 19:00 07:00 Intake Total 800 ml 179.2854 ml Output Total 1700 ml Balance 800 ml -1520.7146 ml Intake Oral 800 ml IV Total 179.2854 ml Output Urine Total 1700 ml # Voids 3 4 Dressing: dry Wound: clean Cardiovascular: RSR Respiratory: clear Abdomen: soft, non-tender, present bowel sounds Extremities: no edema, no tenderness, no cyanosis Laboratory Tests Test 03/24/20 03:30 03/24/20 09:10 03/24/20 11:49 03/24/20 19:05 White Blood Count 5.3 K/UL (4.8-10.8) 5.1 K/UL (4.8-10.8) 5.0 K/UL (4.8-10.8) Red Blood Count 2.86 M/UL (4.70-6.10) L 3.16 M/UL (4.70-6.10) L 3.30 M/UL (4.70-6.10) L Hemoglobin 7.4 G/DL (14.2-18.0) L 7.9 G/DL (14.2-18.0) L 8.5 G/DL (14.2-18.0) L Hematocrit 22.4 % (42.0-52.0) L 24.8 % (42.0-52.0) L 27.3 % (42.0-52.0) L Mean Corpuscular Volume 78 FL (80-99) L 79 FL (80-99) L 83 FL (80-99) Mean Corpuscular Hemoglobin 25.8 PG (27.0-31.0) L 25.0 PG (27.0-31.0) L 25.7 PG (27.0-31.0) L Mean Corpuscular Hemoglobin Concent 32.9 G/DL (32.0-36.0) 31.8 G/DL (32.0-36.0) L 31.0 G/DL (32.0-36.0) L Red Cell Distribution Width 19.8 % (11.6-14.8) H 19.8 % (11.6-14.8) H 22.4 % (11.6-14.8) H Platelet Count 219 K/UL (150-450) 227 K/UL (150-450) 219 K/UL (150-450) Mean Platelet Volume 6.0 FL (6.5-10.1) L 6.2 FL (6.5-10.1) L 6.6 FL (6.5-10.1) Neutrophils (%) (Auto) % (45.0-75.0) % (45.0-75.0) 77.1 % (45.0-75.0) H Lymphocytes (%) (Auto) % (20.0-45.0) % (20.0-45.0) 12.5 % (20.0-45.0) L Monocytes (%) (Auto) % (1.0-10.0) % (1.0-10.0) 8.6 % (1.0-10.0) Eosinophils (%) (Auto) % (0.0-3.0) % (0.0-3.0) 0.5 % (0.0-3.0) Basophils (%) (Auto) % (0.0-2.0) % (0.0-2.0) 1.2 % (0.0-2.0) Differential Total Cells Counted 100 100 Neutrophils % (Manual) 71 % (45-75) 80 % (45-75) H Lymphocytes % (Manual) 18 % (20-45) L 11 % (20-45) L Monocytes % (Manual) 9 % (1-10) 8 % (1-10) Eosinophils % (Manual) 1 % (0-3) 0 % (0-3) Basophils % (Manual) 1 % (0-2) 1 % (0-2) Band Neutrophils 0 % (0-8) 0 % (0-8) Platelet Estimate Adequate Adequate Platelet Morphology Normal Normal Hypochromasia 3+ 3+ Anisocytosis 2+ 2+ Microcytosis 1+ 1+ Spherocytes 1+ Prothrombin Time 20.3 SEC (9.30-11.50) H Prothromb Time International Ratio 2.0 (0.9-1.1) H Sodium Level 142 MMOL/L (136-145) Potassium Level 4.4 MMOL/L (3.5-5.1) Chloride Level 103 MMOL/L (98-107) Carbon Dioxide Level 28 MMOL/L (21-32) Anion Gap 12 mmol/L (5-15) Blood Urea Nitrogen 71 mg/dL (7-18) H Creatinine 3.0 MG/DL (0.55-1.30) H Estimat Glomerular Filtration Rate 21.2 mL/min (>60) Glucose Level 172 MG/DL (74-106) #H Hemoglobin A1c 9.5 % (4.3-6.0) H Calcium Level 8.6 MG/DL (8.5-10.1) Magnesium Level 2.1 MG/DL (1.8-2.4) Pro-B-Type Natriuretic Peptide 22109 pg/mL (0-125) H Triglycerides Level 62 MG/DL (30-150) Cholesterol Level 51 MG/DL (< 200) LDL Cholesterol 28 mg/dL (<100) HDL Cholesterol 20 MG/DL (40-60) L Cholesterol/HDL Ratio 2.6 (3.3-4.4) L Thyroid Stimulating Hormone (TSH) 2.047 uiU/mL (0.358-3.740) Urine Random Total Protein 9 MG/DL (< 11.9) Urine Random Sodium 122 mmol/L (20-110) H Urine Creatinine 8.5 MG/DL (30.0-125.0) L Plan Problems: (1) Renal insufficiency Assessment & Plan: 64-year-old male presented with shortness of breath chest pain currently admitted for medical care and management identified to have renal insufficiency, hypotension, abnormal labs. (2) Abnormal LFTs Assessment & Plan: Ultrasound required Ordered Trend labs We will follow-up (3) Hypotension Assessment & Plan: Patient with hypotension requiring pressors. Eval myself at the bedside central venous catheter indicated recommended Discussed with medical team nursing staff and care plan with patient Please see procedure note we will follow with recommendations Chuck Castelan Mar 24, 2020 21:59
[2020-03-25] VITALS: BP 112/68
--- NOTE | 2020-03-25 | NUR ---
NURSE NOTES: Resting in bed. Sleeping off and on. Denies pain. No distress notes. Respiration even and unlabored. On 2L/NC. Dobutamine infusing well at 5 mcg/kg/hr. as ordered. VSS. Afebrile. SR on mud cleaner operator. Voiding well via urinal of clear yellow urine. Bed in lowest position and locked in place. Side rails up X2. Bed alarm engaged. call light within reach. will POC.
[2020-03-25 04:00] VITALS: BP 114/60
--- NOTE | 2020-03-25 04:00 | NUR ---
NURSE NOTES: Condition unchanged. resting in bed. Sleeping off and on. denies pain. no distress notes. Respiration even and unlabored. On 2L/NC. Labs drawn from right femoral central line. Dobutamine drip continue to infuse at 5mcg/kg/hr as ordered. VSS. Afebrile. SR on tank car reconditioner. Voiding via urinal of clear yellow urine. Bed in lowest position and locked in place. Side rails up X2. Bed alarm engaged. call light within reach. Will continue to monitor.
[2020-03-25 06:26] LABS: BASOPHILS % (AUTO) 1.1 % (0.0-2.0); EOSINOPHILS % (AUTO) 0.9 % (0.0-3.0); HEMATOCRIT 26.7 % (42.0-52.0); HEMOGLOBIN 8.7 G/DL (14.2-18.0); LYMPHOCYTES % (AUTO) 16.1 % (20.0-45.0); MEAN CORPUSCULAR VOLUME 79 FL (80-99); MONOCYTES % (AUTO) 8.7 % (1.0-10.0); NEUTROPHILS % (AUTO) 73.1 % (45.0-75.0); PLATELET COUNT 231 K/UL (150-450); RED BLOOD COUNT 3.36 M/UL (4.70-6.10); RED CELL DISTRIBUTION WIDTH 19.4 % (11.6-14.8); WHITE BLOOD COUNT 4.3 K/UL (4.8-10.8)
[2020-03-25 06:33] LABS: PHOSPHORUS 3.7 MG/DL (2.5-4.9)
[2020-03-25 06:38] LABS: ANION GAP 8 mmol/L (5-15); BLOOD UREA NITROGEN 55 mg/dL (7-18); CALCIUM 9.4 MG/DL (8.5-10.1); CARBON DIOXIDE 32 MMOL/L (21-32); CHLORIDE 100 MMOL/L (98-107); CREATININE 2.4 MG/DL (0.55-1.30); FERRITIN 45 NG/ML (8-388); POTASSIUM 3.6 MMOL/L (3.5-5.1); SODIUM 140 MMOL/L (136-145)
[2020-03-25 06:39] LABS: % IRON SATURATION 17 % (15-50); IRON 61 ug/dL (50-175); TOTAL IRON BINDING CAPACITY 356 ug/dL (250-450)
--- NOTE | 2020-03-25 07:30 | NUR ---
received pt awake alert oriented x4 skin warm to touch on o2 2l nc on dobutamine drip af with pvc,s
[2020-03-25 08:00] VITALS: BP 114/60
--- NOTE | 2020-03-25 08:42 | General Progress Note ---
Assessment/Plan Assessment/Plan: 64 yo M w/ MMP PMHx A fib, CHF, Smoker w/ possible COPD presented t the ED via EMS for several days of CP and SOB. Pt reports 1 week of progressive chest heaviness and pain. Pain is described as moderate, constant w/ waxing and waning , not worse w/ exertion. Also reports bl le edema and dry cough. #Chest pain, atypical #Acute decompensated CHF #Acute on Chronic systolic heart failure #A fib, rate controlled - surveillance system monitor - cardiology consult, appreciate recs - surgery consult, s/p central line placement 03/24 - cont dobutamine gtt per cardio - s/p bumex 1mg IV BID - lasix 40 BID - hydralazine, isordil - hold coreg given bradycardia - DC AC given dec in Hb - serial tn/ekg -> neg - TTE -> EF < 15% - trend chem, goal k > 4, mag > 2 - pain control - supportive care #Acute anemia, suspect blood loss on AC - repeat CBC this am closer to baseline from admit - 03/24: s/p 1 U PRBC - hold AC - FOBT - goal Hgb >7.5, Transfuse for Hb < 7.5 #COPD, suspected #Current smoker #Pleural effusion, due to CHF - nebs prn sob/wheeze - nicotine patch offered, refused - ctm resp status and effusion, may need throa - sup o2 as needed #AALIYAH, suspect cardiorenal syndrome (baseline cr unknown) - diuresis as above - trend cr - avoid nephro toxic meds #Hyperkalemia - resolved - ctm #Transaminitis, AST elevation #Hyperbilirubinemia - suspect due to hepatic congestion - trend LFTs - ABD us pending read #FEN/PPx - 1500cc fluid restriction - trend chem, replete lytes as needed - cardiac diet - off oac as above - SCDs for now FULL CODE I spent 36 min on this case and 22 min was dedicated to counseling and care coordination including discussion w/RN, cardiology and nephro reguarding medications. Additional 30 mins spent on non-face to face time w/chart reivew, reviewed H&P, progress notes, senior research consultant notes, labs and radiographic findings. Time of this note may not reflect the time of the clinical encounter. Subjective Allergies: Coded Allergies: No Known Allergies (Unverified , 03/23/20) Subjective F/u acute on chronic CHF exacerbation. s/p 1 U PRBC Remains on Dobuta gtt Pt denies any CP, SOB, cough at this time. 12 pt ros neg except as above Objective Last 24 Hour Vital Signs Date Time Temp Pulse Resp B/P (MAP) Pulse Ox O2 Delivery O2 Flow Rate FiO2 03/25/20 04:00 Nasal Cannula 2.0 03/25/20 04:00 97.6 101 18 114/60 (78) 97 03/25/20 04:00 2.0 03/25/20 03:34 109 03/25/20 00:00 Nasal Cannula 2.0 03/25/20 00:00 2.0 03/25/20 00:00 101 03/25/20 00:00 97.8 77 18 112/68 (83) 98 03/24/20 22:11 129/76 03/24/20 20:00 2.0 03/24/20 20:00 97.5 67 18 129/76 (93) 98 03/24/20 20:00 67 03/24/20 20:00 Nasal Cannula 2.0 03/24/20 16:00 97.3 95 18 111/63 (79) 100 03/24/20 16:00 Nasal Cannula 2.0 03/24/20 16:00 2.0 03/24/20 15:43 98 03/24/20 12:00 Nasal Cannula 2.0 03/24/20 12:00 2.0 03/24/20 12:00 97.0 93 18 114/66 (82) 100 03/24/20 11:40 92 Intake and Output 03/24/20 03/25/20 19:00 07:00 Intake Total 944.944 ml 382.884 ml Output Total 3250 ml 1450 ml Balance -2305.056 ml -1067.116 ml Intake Oral 700 ml 240 ml IV Total 244.944 ml 142.884 ml Output Urine Total 3250 ml 1450 ml Laboratory Tests 03/24/20 09:10: White Blood Count 5.1, Red Blood Count 3.16L, Hemoglobin 7.9L, Hematocrit 24.8L , Mean Corpuscular Volume 79L, Mean Corpuscular Hemoglobin 25.0L, Mean Corpuscular Hemoglobin Concent 31.8L, Red Cell Distribution Width 19.8H, Platelet Count 227, Mean Platelet Volume 6.2L, Neutrophils (%) (Auto) , Lymphocytes (%) (Auto) , Monocytes (%) (Auto) , Eosinophils (%) (Auto) , Basophils (%) (Auto) , Differential Total Cells Counted 100, Neutrophils % ( Manual) 80H, Lymphocytes % (Manual) 11L, Monocytes % (Manual) 8, Eosinophils % ( Manual) 0, Basophils % (Manual) 1, Band Neutrophils 0, Platelet Estimate Adequate, Platelet Morphology Normal, Hypochromasia 3+, Anisocytosis 2+, Microcytosis 1+ 03/24/20 11:49: Urine Random Total Protein 9, Urine Random Sodium 122H, Urine Creatinine 8.5L 03/24/20 19:05: White Blood Count 5.0, Red Blood Count 3.30L, Hemoglobin 8.5L, Hematocrit 27.3L , Mean Corpuscular Volume 83, Mean Corpuscular Hemoglobin 25.7L, Mean Corpuscular Hemoglobin Concent 31.0L, Red Cell Distribution Width 22.4H, Platelet Count 219, Mean Platelet Volume 6.6, Neutrophils (%) (Auto) 77.1H, Lymphocytes (%) (Auto) 12.5L, Monocytes (%) (Auto) 8.6, Eosinophils (%) (Auto) 0.5, Basophils (%) (Auto) 1.2 03/25/20 03:40: White Blood Count 4.3L, Red Blood Count 3.36L, Hemoglobin 8.7L, Hematocrit 26.7L , Mean Corpuscular Volume 79L, Mean Corpuscular Hemoglobin 25.9L, Mean Corpuscular Hemoglobin Concent 32.6, Red Cell Distribution Width 19.4H, Platelet Count 231, Mean Platelet Volume 5.9L, Neutrophils (%) (Auto) 73.1, Lymphocytes (%) (Auto) 16.1L, Monocytes (%) (Auto) 8.7, Eosinophils (%) (Auto) 0.9, Basophils (%) (Auto) 1.1, Sodium Level 140, Potassium Level 3.6, Chloride Level 100, Carbon Dioxide Level 32, Anion Gap 8, Blood Urea Nitrogen 55H, Creatinine 2.4H, Estimat Glomerular Filtration Rate 27.5, Glucose Level 124H, Calcium Level 9.4, Calcium (Send out) [Pending], Phosphorus Level 3.7, Magnesium Level 1.8, Iron Level 61, Total Iron Binding Capacity 356, Percent Iron Saturation 17, Unsaturated Iron Binding 295, Ferritin 45, Vitamin D 25- Hydroxy [Pending], 25-Hydroxy Vitamin D2 [Pending], 25-Hydroxy Vitamin D3 [ Pending], Parathyroid Hormone (Intact) [Pending] Height (Feet): 5 Height (Inches): 5.00 Weight (Pounds): 149 Objective General Appearance: WD/WN, no apparent distress, alert HEENT: normocephalic, atraumatic, PERRL, EOMI Neck: normal alignment, supple Respiratory/Chest: lungs clear, normal breath sounds, no respiratory distress, no accessory muscle use Cardiovascular/Chest: normal peripheral pulses, regularly rhythm, no gallop/ murmur, JVD Abdomen: normal bowel sounds, non tender, soft Extremities: no edema Neurologic: polisher brass II-XII grossly normal, alert, normal mood/affect Laisha Lares M.D. Mar 25, 2020 08:42
[2020-03-25] MEDS: Bumetanide 0.25mg/ml 4ml IV SCH (09:22)
[2020-03-25] MEDS: Aspirin Baby 81mg ORAL SCH (09:23)
[2020-03-25] MEDS: Docusate 100mg cap ORAL SCH ×2 (09:23→21:26)
[2020-03-25] MEDS: DOBUTamine 250mg/250ml Premix 250 ML IV SCH ×2 (09:31→13:01)
[2020-03-25 12:00] VITALS: BP 110/64
--- NOTE | 2020-03-25 12:15 | Nephrology Progress Note ---
Assessment/Plan Plan #AALIYAH on CKD- ?--unclear baseline - cardiorenal syndrome 1 #acute on chronic combined systolic and diastolic CHF #afib- rate controlled #anemia- of CKD? #elevated liver enzymes #h/o HTN #COPD #tobacco use disorder - renal US pending - continue bumex at 1mg BID - follow echo-. EF < 15% - dobutamin drip per cardiology - monitor UOP- strict- place bansal - daily weights - monitor and replete lytes - check vitamin D, PTH, phos pending - continue asa - prbc transfusion prn - target hemoglobin > 7.5 - check iron panel and ferritin- adequate - consider epo time spent 72 min- > 50% on care coordination and counselling Subjective ROS Limited/Unobtainable: No Constitutional: Denies: no symptoms, chills, diaphoresis, fever, malaise, weakness, other HEENT: Denies: no symptoms, eye pain, blurred vision, tearing, double vision, ear pain, ear discharge, nose pain, nose congestion, throat pain, throat swelling, mouth pain, mouth swelling, other Genitourinary: Denies: no symptoms, burning, discharge, frequency, flank pain, hematuria, incontinence, pain, urgency, other Neurologic/Psychiatric: Denies: no symptoms, anxiety, depressed, emotional problems, headache, numbness, paresthesia, pre-existing deficit, seizure, tingling, tremors, weakness, other Subjective refused bansal placement Cr down to 2.4 UOP 4.7L hemoglobin 8.7 Objective Objective Last 24 Hour Vital Signs Date Time Temp Pulse Resp B/P (MAP) Pulse Ox O2 Delivery O2 Flow Rate FiO2 03/25/20 09:31 87/60 03/25/20 04:00 Nasal Cannula 2.0 03/25/20 04:00 97.6 101 18 114/60 (78) 97 03/25/20 04:00 2.0 03/25/20 03:34 109 03/25/20 00:00 Nasal Cannula 2.0 03/25/20 00:00 2.0 03/25/20 00:00 101 03/25/20 00:00 97.8 77 18 112/68 (83) 98 03/24/20 22:11 129/76 03/24/20 20:00 2.0 03/24/20 20:00 97.5 67 18 129/76 (93) 98 03/24/20 20:00 67 03/24/20 20:00 Nasal Cannula 2.0 03/24/20 16:00 97.3 95 18 111/63 (79) 100 03/24/20 16:00 Nasal Cannula 2.0 03/24/20 16:00 2.0 03/24/20 15:43 98 Intake and Output 03/24/20 03/25/20 19:00 07:00 Intake Total 944.944 ml 382.884 ml Output Total 3250 ml 1450 ml Balance -2305.056 ml -1067.116 ml Intake Oral 700 ml 240 ml IV Total 244.944 ml 142.884 ml Output Urine Total 3250 ml 1450 ml Laboratory Tests 03/24/20 19:05: White Blood Count 5.0, Red Blood Count 3.30L, Hemoglobin 8.5L, Hematocrit 27.3L , Mean Corpuscular Volume 83, Mean Corpuscular Hemoglobin 25.7L, Mean Corpuscular Hemoglobin Concent 31.0L, Red Cell Distribution Width 22.4H, Platelet Count 219, Mean Platelet Volume 6.6, Neutrophils (%) (Auto) 77.1H, Lymphocytes (%) (Auto) 12.5L, Monocytes (%) (Auto) 8.6, Eosinophils (%) (Auto) 0.5, Basophils (%) (Auto) 1.2 03/25/20 03:40: White Blood Count 4.3L, Red Blood Count 3.36L, Hemoglobin 8.7L, Hematocrit 26.7L , Mean Corpuscular Volume 79L, Mean Corpuscular Hemoglobin 25.9L, Mean Corpuscular Hemoglobin Concent 32.6, Red Cell Distribution Width 19.4H, Platelet Count 231, Mean Platelet Volume 5.9L, Neutrophils (%) (Auto) 73.1, Lymphocytes (%) (Auto) 16.1L, Monocytes (%) (Auto) 8.7, Eosinophils (%) (Auto) 0.9, Basophils (%) (Auto) 1.1, Sodium Level 140, Potassium Level 3.6, Chloride Level 100, Carbon Dioxide Level 32, Anion Gap 8, Blood Urea Nitrogen 55H, Creatinine 2.4H, Estimat Glomerular Filtration Rate 27.5, Glucose Level 124H, Calcium Level 9.4, Calcium (Send out) [Pending], Phosphorus Level 3.7, Magnesium Level 1.8, Iron Level 61, Total Iron Binding Capacity 356, Percent Iron Saturation 17, Unsaturated Iron Binding 295, Ferritin 45, Pro-B-Type Natriuretic Peptide 51045F, Vitamin D 25-Hydroxy [Pending], 25-Hydroxy Vitamin D2 [Pending], 25-Hydroxy Vitamin D3 [Pending], Parathyroid Hormone (Intact) [ Pending] Height (Feet): 5 Height (Inches): 5.00 Weight (Pounds): 149 Objective General Appearance: no apparent distress Lines, tubes and drains: peripheral HEENT: normocephalic Neck: non-tender Respiratory/Chest: chest wall non-tender, crackles/rales Cardiovascular/Chest: normal peripheral pulses, normal rate, regularly irregular Abdomen: normal bowel sounds, non tender, soft Extremities: moderate edema Neurologic: alert, oriented x 3, responsive Gini Spann M.D. Mar 25, 2020 12:15
--- NOTE | 2020-03-25 12:32 | NUR ---
had run of vt DR GA NOTEFIED
--- NOTE | 2020-03-25 12:56 | Cardiac Electrophysiology PN ---
Assessment/Plan Assessment/Plan 1. Exacerbation of congestive heart failure in this patient with severe cardiomyopathy EF 10-15%. Change Bumex to Lasix 40 mg IV b.i.d. We will hold off on Coreg as the patient gets bradycardia with heart rate dropping to 30s and in atrial fibrillation. Avoid PRAVEEN inhibitor and angiotensin-receptor blockers in view of acute renal failure and creatinine of more than 3. Decrease Dobutamine to 4mc/kg/min 2. Atrial fibrillation. The rate is currently controlled. It actually goes in the 30s, off any AV-regis blocking agents.Off antocoagulation for Hb 8 and bleeding from RFV central line 3. Hypertension. Continue current medical therapy. 4. Renal failure, creatinine of 3.3. On dobutamine drip Cr improved to 2.4. FU Dr Tucker Awaiting records from [facility] [place] as he usually gets most of his cares at that center. 5. Anemia, hemoglobin of 8.3. S/P PRBC one unit DW RN Subjective Subjective In SDU on Dobutamine drip 5 mc in atrial fib with frequent NSVT Objective Last 24 Hour Vital Signs Date Time Temp Pulse Resp B/P (MAP) Pulse Ox O2 Delivery O2 Flow Rate FiO2 03/25/20 09:31 87/60 03/25/20 04:00 Nasal Cannula 2.0 03/25/20 04:00 97.6 101 18 114/60 (78) 97 03/25/20 04:00 2.0 03/25/20 03:34 109 03/25/20 00:00 Nasal Cannula 2.0 03/25/20 00:00 2.0 03/25/20 00:00 101 03/25/20 00:00 97.8 77 18 112/68 (83) 98 03/24/20 22:11 129/76 03/24/20 20:00 2.0 03/24/20 20:00 97.5 67 18 129/76 (93) 98 03/24/20 20:00 67 03/24/20 20:00 Nasal Cannula 2.0 03/24/20 16:00 97.3 95 18 111/63 (79) 100 03/24/20 16:00 Nasal Cannula 2.0 03/24/20 16:00 2.0 03/24/20 15:43 98 Intake and Output 03/24/20 03/25/20 19:00 07:00 Intake Total 944.944 ml 403.024 ml Output Total 3250 ml 1450 ml Balance -2305.056 ml -1046.976 ml Intake Oral 700 ml 240 ml IV Total 244.944 ml 163.024 ml Output Urine Total 3250 ml 1450 ml Laboratory Tests Test 03/24/20 19:05 03/25/20 03:40 White Blood Count 5.0 K/UL (4.8-10.8) 4.3 K/UL (4.8-10.8) L Red Blood Count 3.30 M/UL (4.70-6.10) L 3.36 M/UL (4.70-6.10) L Hemoglobin 8.5 G/DL (14.2-18.0) L 8.7 G/DL (14.2-18.0) L Hematocrit 27.3 % (42.0-52.0) L 26.7 % (42.0-52.0) L Mean Corpuscular Volume 83 FL (80-99) 79 FL (80-99) L Mean Corpuscular Hemoglobin 25.7 PG (27.0-31.0) L 25.9 PG (27.0-31.0) L Mean Corpuscular Hemoglobin Concent 31.0 G/DL (32.0-36.0) L 32.6 G/DL (32.0-36.0) Red Cell Distribution Width 22.4 % (11.6-14.8) H 19.4 % (11.6-14.8) H Platelet Count 219 K/UL (150-450) 231 K/UL (150-450) Mean Platelet Volume 6.6 FL (6.5-10.1) 5.9 FL (6.5-10.1) L Neutrophils (%) (Auto) 77.1 % (45.0-75.0) H 73.1 % (45.0-75.0) Lymphocytes (%) (Auto) 12.5 % (20.0-45.0) L 16.1 % (20.0-45.0) L Monocytes (%) (Auto) 8.6 % (1.0-10.0) 8.7 % (1.0-10.0) Eosinophils (%) (Auto) 0.5 % (0.0-3.0) 0.9 % (0.0-3.0) Basophils (%) (Auto) 1.2 % (0.0-2.0) 1.1 % (0.0-2.0) Sodium Level 140 MMOL/L (136-145) Potassium Level 3.6 MMOL/L (3.5-5.1) Chloride Level 100 MMOL/L (98-107) Carbon Dioxide Level 32 MMOL/L (21-32) Anion Gap 8 mmol/L (5-15) Blood Urea Nitrogen 55 mg/dL (7-18) H Creatinine 2.4 MG/DL (0.55-1.30) H Estimat Glomerular Filtration Rate 27.5 mL/min (>60) Glucose Level 124 MG/DL (74-106) H Calcium Level 9.4 MG/DL (8.5-10.1) Calcium (Send out) Pending Phosphorus Level 3.7 MG/DL (2.5-4.9) Magnesium Level 1.8 MG/DL (1.8-2.4) Iron Level 61 ug/dL (50-175) Total Iron Binding Capacity 356 ug/dL (250-450) Percent Iron Saturation 17 % (15-50) Unsaturated Iron Binding 295 ug/dL (112-346) Ferritin 45 NG/ML (8-388) Pro-B-Type Natriuretic Peptide 33393 pg/mL (0-125) H Vitamin D 25-Hydroxy Pending 25-Hydroxy Vitamin D2 Pending 25-Hydroxy Vitamin D3 Pending Parathyroid Hormone (Intact) Pending Objective HEAD AND NECK: Show positive JVD. LUNGS: Decreased breath sounds. CARDIOVASCULAR: Shows irregular S1 and S2 with no gallop or murmur. ABDOMEN: Soft. EXTREMITIES: 1+ pitting edema. Jovi Luther MD Mar 25, 2020 12:56
--- NOTE | 2020-03-25 13:20 | Surgery Progress Note ---
Surgery Progress Note Subjective Procedure Performed Right femoral central venous catheter insertion Additional Comments states he is well INR noted comfortable no complaints no bleeding Objective Last 24 Hour Vital Signs Date Time Temp Pulse Resp B/P (MAP) Pulse Ox O2 Delivery O2 Flow Rate FiO2 03/25/20 13:01 110/63 03/25/20 09:31 87/60 03/25/20 04:00 Nasal Cannula 2.0 03/25/20 04:00 97.6 101 18 114/60 (78) 97 03/25/20 04:00 2.0 03/25/20 03:34 109 03/25/20 00:00 Nasal Cannula 2.0 03/25/20 00:00 2.0 03/25/20 00:00 101 03/25/20 00:00 97.8 77 18 112/68 (83) 98 03/24/20 22:11 129/76 03/24/20 20:00 2.0 03/24/20 20:00 97.5 67 18 129/76 (93) 98 03/24/20 20:00 67 03/24/20 20:00 Nasal Cannula 2.0 03/24/20 16:00 97.3 95 18 111/63 (79) 100 03/24/20 16:00 Nasal Cannula 2.0 03/24/20 16:00 2.0 03/24/20 15:43 98 I&O Intake and Output 03/24/20 03/25/20 19:00 07:00 Intake Total 944.944 ml 403.024 ml Output Total 3250 ml 1450 ml Balance -2305.056 ml -1046.976 ml Intake Oral 700 ml 240 ml IV Total 244.944 ml 163.024 ml Output Urine Total 3250 ml 1450 ml Dressing: other Wound: other Drains: other Cardiovascular: RSR Respiratory: decreased breath sounds Abdomen: soft, non-tender, present bowel sounds Extremities: no edema, no tenderness, no cyanosis Laboratory Tests Test 03/24/20 19:05 03/25/20 03:40 White Blood Count 5.0 K/UL (4.8-10.8) 4.3 K/UL (4.8-10.8) L Red Blood Count 3.30 M/UL (4.70-6.10) L 3.36 M/UL (4.70-6.10) L Hemoglobin 8.5 G/DL (14.2-18.0) L 8.7 G/DL (14.2-18.0) L Hematocrit 27.3 % (42.0-52.0) L 26.7 % (42.0-52.0) L Mean Corpuscular Volume 83 FL (80-99) 79 FL (80-99) L Mean Corpuscular Hemoglobin 25.7 PG (27.0-31.0) L 25.9 PG (27.0-31.0) L Mean Corpuscular Hemoglobin Concent 31.0 G/DL (32.0-36.0) L 32.6 G/DL (32.0-36.0) Red Cell Distribution Width 22.4 % (11.6-14.8) H 19.4 % (11.6-14.8) H Platelet Count 219 K/UL (150-450) 231 K/UL (150-450) Mean Platelet Volume 6.6 FL (6.5-10.1) 5.9 FL (6.5-10.1) L Neutrophils (%) (Auto) 77.1 % (45.0-75.0) H 73.1 % (45.0-75.0) Lymphocytes (%) (Auto) 12.5 % (20.0-45.0) L 16.1 % (20.0-45.0) L Monocytes (%) (Auto) 8.6 % (1.0-10.0) 8.7 % (1.0-10.0) Eosinophils (%) (Auto) 0.5 % (0.0-3.0) 0.9 % (0.0-3.0) Basophils (%) (Auto) 1.2 % (0.0-2.0) 1.1 % (0.0-2.0) Sodium Level 140 MMOL/L (136-145) Potassium Level 3.6 MMOL/L (3.5-5.1) Chloride Level 100 MMOL/L (98-107) Carbon Dioxide Level 32 MMOL/L (21-32) Anion Gap 8 mmol/L (5-15) Blood Urea Nitrogen 55 mg/dL (7-18) H Creatinine 2.4 MG/DL (0.55-1.30) H Estimat Glomerular Filtration Rate 27.5 mL/min (>60) Glucose Level 124 MG/DL (74-106) H Calcium Level 9.4 MG/DL (8.5-10.1) Calcium (Send out) Pending Phosphorus Level 3.7 MG/DL (2.5-4.9) Magnesium Level 1.8 MG/DL (1.8-2.4) Iron Level 61 ug/dL (50-175) Total Iron Binding Capacity 356 ug/dL (250-450) Percent Iron Saturation 17 % (15-50) Unsaturated Iron Binding 295 ug/dL (112-346) Ferritin 45 NG/ML (8-388) Pro-B-Type Natriuretic Peptide 44952 pg/mL (0-125) H Vitamin D 25-Hydroxy Pending 25-Hydroxy Vitamin D2 Pending 25-Hydroxy Vitamin D3 Pending Parathyroid Hormone (Intact) Pending Plan Problems: (1) Renal insufficiency Assessment & Plan: 64-year-old male presented with shortness of breath chest pain currently admitted for medical care and management identified to have renal insufficiency, hypotension, abnormal labs. (2) Abnormal LFTs Assessment & Plan: Ultrasound required Ordered Trend labs We will follow-up (3) Hypotension Assessment & Plan: Patient with hypotension requiring pressors. Eval myself at the bedside central venous catheter indicated recommended Discussed with medical team nursing staff and care plan with patient Please see procedure note we will follow with recommendations Chuck Castelan Mar 25, 2020 13:20
--- NOTE | 2020-03-25 13:41 | Diagnostic Imaging Report ---
Indication: Abnormal liver function tests, abnormal renal function tests. Technique: Hernandez-scale and duplex images of the upper abdomen were obtained. Doppler interrogation of the pancreatic and hepatic vessels. Grayscale and duplex images of the kidneys, retroperitoneum, and bladder Comparison: Findings: Gallbladder nondistended. It contains a gallstone. Gallbladder wall is somewhat thickened, measuring up to 4 mm thick. Sonographic Rosas's sign is negative. Common bile duct measures 3 mm in diameter. No intrahepatic biliary ductal dilatation. Liver demonstrates normal echogenicity, no focal abnormality. Portal vein and hepatic veins are patent. Pancreas is unremarkable. Spleen is unremarkable. Left kidney measures 10.1 cm in length. Right kidney measures 11.6 cm length. Both kidneys demonstrate normal echogenicity. There is no hydronephrosis. No focal abnormality. There is, however, trace right perinephric fluid. . The prostate is not enlarged. The bladder is unremarkable.. Non-aneurysmal abdominal aorta . There is a small left pleural effusion. The inferior vena cava and hepatic veins are somewhat distended Impression: Cholelithiasis. Gallbladder wall thickening, may in part be exaggerated by lack of distention or could be due to edema of systemic origin. However, the possibility of acute cholecystitis should also be considered. Consider hepatobiliary nuclear scan if there is high clinical suspicion. Negative for dilated bile ducts Mildly dilated inferior vena cava and hepatic veins, could indicate central venous hypertension Small left pleural effusion Trace nonspecific right perinephric fluid Negative for hydronephrosis
--- NOTE | 2020-03-25 15:57 | NUR ---
CASE MANAGEMENT: REVIEW 64 YEAR OLD MALE PRESENTED TO ED FROM HOME CC: CHEST PAIN x1 WEEK . HX DAILY TOBACCO USE SI: CHF EXACERBATION . A-FIB T 97.2 HR 81 RR 18 BP 97/67 SAT 99% NC/2L H/H 8.3/25.4 BUN 71 CR 3.0 GLUCOSE 172 BNP 08913 IS: BUMEX IV X1 FENTANYL IV X1 NITRO 1 INCH TOPICAL X1 PATIENT ADMITTED TO STEP DOWN UNIT 03/23/2020 DCP: PATIENT IS FROM HOME
[2020-03-25 16:00] VITALS: BP 100/61
[2020-03-25] MEDS ORDERED: DOBUTamine 250mg/250ml Premix 250 ML IV SCH (16:00)
--- NOTE | 2020-03-25 19:00 | NUR ---
HAND-OFF: Report given to ZENA Verde.
--- NOTE | 2020-03-25 19:15 | NUR ---
NURSE NOTES: Received pt from ZENA Carpio. resting in bed, A/O X4. denies pain. no distress notes. Respiration even and unlabored. On 2L/NC. RH 20 G and LAC 20 G IV sites are patent and intact w/o redness or swelling. Right femoral central line is patent and intact w/Dobutamine drip at fixed rate of 4 mcg/kg/hr as ordered. VSS. Afebrile. SR on surveillance monitor. Voiding via urinal of clear yellow urine. Bed in lowest position and locked in place. Side rails up X2. Bed alarm engaged. call light within reach. will POC.
[2020-03-25 20:00] VITALS: BP 111/65
[2020-03-25] MEDS: Dyna-Hex 2% Top Sol 2oz TOPIC SCH (21:26)
[2020-03-26] VITALS: BP 118/62
--- NOTE | 2020-03-26 | NUR ---
NURSE NOTES: Resting quietly in bed. Sleeping off and on. Denies pain. No distress notes. Respiration even and unlabored. On 2L/NC. Dobutamine infusing well at 4 mcg/kg/hr. as ordered. VSS. Afebrile. SR on youth nutritional monitor. Voiding well via urinal of clear yellow urine. Bed in lowest position and locked in place. Side rails up X2. Bed alarm engaged. Call light within reach. Will POC.
[2020-03-26 04:00] VITALS: BP 112/75
--- NOTE | 2020-03-26 04:00 | NUR ---
NURSE NOTES: Sleeping off and on. Denies pain. In no apparent distress. Respiration even and unlabored. On 2L/NC. Dobutamine infusing well at 4 mcg/kg/hr. as ordered. SR on diagnostic cardiac sonographer. Voiding well via urinal of clear yellow urine. Bed in lowest position and locked in place. Side rails up X2. Bed alarm engaged. Call light within reach. Will POC.
[2020-03-26] MEDS: DOBUTamine 250mg/250ml Premix 250 ML IV SCH ×3 (04:13→23:51)
--- NOTE | 2020-03-26 06:23 | Consultation ---
History of Present Illness General Chief Complaint: Chest Pain Reason for Consultation: Acute kidney injury Present Illness Allergies: Coded Allergies: No Known Allergies (Unverified , 03/23/20) Medication History Unable to Obtain Active Prescriptions or Reported Meds Patient History Healthcare decision maker Resuscitation status Full Code Advanced Directive on File Physical Exam Last 24 Hour Vital Signs Date Time Temp Pulse Resp B/P (MAP) Pulse Ox O2 Delivery O2 Flow Rate FiO2 03/26/20 04:13 118/62 03/26/20 04:00 2.0 03/26/20 04:00 Nasal Cannula 2.0 03/26/20 00:00 97.8 101 18 118/62 (80) 98 03/26/20 00:00 2.0 03/26/20 00:00 Nasal Cannula 2.0 03/25/20 20:00 Nasal Cannula 2.0 03/25/20 20:00 98.3 80 18 111/65 (80) 100 03/25/20 20:00 2.0 03/25/20 20:00 80 03/25/20 16:00 2.0 03/25/20 16:00 Nasal Cannula 2.0 03/25/20 16:00 97.6 102 18 100/61 (74) 97 03/25/20 16:00 91 03/25/20 13:01 110/63 03/25/20 12:00 2.0 03/25/20 12:00 98.0 102 18 110/64 (79) 97 03/25/20 12:00 Nasal Cannula 2.0 03/25/20 12:00 97 03/25/20 09:31 87/60 03/25/20 08:00 98.4 101 18 114/60 (78) 97 03/25/20 08:00 111 03/25/20 08:00 2.0 03/25/20 08:00 Nasal Cannula 2.0 Intake and Output 03/25/20 03/26/20 19:00 07:00 Intake Total 1198.674 ml 97.974 ml Output Total 1950 ml Balance -751.326 ml 97.974 ml Intake Oral 1000 ml IV Total 198.674 ml 97.974 ml Output Urine Total 1950 ml Height (Feet): 5 Height (Inches): 5.00 Weight (Pounds): 149 Medications Current Medications Medications (Trade) Dose Ordered Sig/Hunter Route PRN Reason Start Time Stop Time Status Last Admin Dose Admin Acetaminophen/ Hydrocodone Bitart (Merritt 5/325) 1 tab Q4H PRN ORAL Moderate Pain (Pain Scale 4-6) 03/24/20 11:30 03/30/20 11:29 03/24/20 22:05 Aspirin (ASA) 81 mg DAILY ORAL 03/24/20 09:00 05/07/20 08:59 03/25/20 09:23 Chlorhexidine Gluconate (Aruna-Hex 2%) 1 applic DAILY@2000 TOPIC 03/24/20 20:00 06/22/20 19:59 03/25/20 21:26 Dextrose (Dextrose 50%) 25 ml Q30M PRN IV Hypoglycemia 03/24/20 08:15 06/21/20 04:14 Dextrose (Dextrose 50%) 50 ml Q30M PRN IV Hypoglycemia 03/24/20 08:15 06/21/20 04:14 Dobutamine HCl 250 ml @ 16.329 mls/ hr Q24H IV 03/25/20 12:44 06/23/20 12:43 03/26/20 04:13 Docusate Sodium (Colace) 100 mg EVERY 12 HOURS ORAL 03/24/20 09:00 04/22/20 08:59 03/25/20 21:26 Furosemide (Lasix) 40 mg BID@0900,1600 IV 03/25/20 16:00 04/24/20 15:59 03/25/20 16:55 Hydromorphone HCl (Dilaudid) 2 mg Q4H PRN ORAL Severe Pain (Pain Scale 7-10) 03/24/20 08:30 03/30/20 08:29 Iron Sucrose 100 mg/Sodium Chloride 60 ml @ 240 mls/hr BEDTIME IV 03/26/20 21:00 03/30/20 21:14 Ondansetron HCl (Zofran) 4 mg Q6H PRN IVP Nausea & Vomiting 03/24/20 08:30 04/22/20 08:29 03/24/20 18:12 Assessment/Plan Assessment/Plan: Heme Consultation REBarvo MD: Lorna Cruz RFC: Anemia and anticoagulation DOS 03/26/2020 HPI Patient is a 64-year-old male presents via ambulance after increased chest tightness and shortness of breath. Patient had onset of symptoms approximately 1 week ago. Patient had reportedly had prior history of anemia as well as some lung disease and is currently a smoker approximately 2 cigarettes a day. Prior history of congestive heart failure and atrial fibrillation. He is on anticoagulation but does not recall what medication he is taking. Reports having previous episodes of CHF in the past most recently seen at [facility] approximate 1 month ago. Denies any fever. Reports having intermittent cough. Increased orthopnea. Patient had not been having any vomiting but does report having some generalized abdominal pain. Patient does report having some prior history of anemia as well. Denies any bleeding. Since admission has been diuresed, question re anticoagulation and i was consulted for further rx and treatment. Coded Allergies: No Known Allergies (Unverified , 03/23/20) COVID-19 Screening Contact w/high risk pt: No Recent Travel to affected area: No Experienced COVID-19 symptoms?: No Patient History Past Medical History: see triage record Reviewed Nursing Documentation: PMH: Agreed; PSxH: Agreed Review of Systems All Other Systems: negative except mentioned in HPI Physical Exam Vitals: reviewed, normal General: normal inspection, well appearing, no apparent distress, alert Head: atraumatic Heent: nc, at Resp: normal inspection, lungs clear, normal breath sounds Cardiovascular: regular rate, rhythm, no edema, JVD Gastrointestinal: normal inspection, normal bowel sounds, non tender, soft, no guarding, no hernia Msk: normal inspection, back normal, normal range of motion Neurologic: alert, motor strength/tone normal, 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 Luther --> start lovenox sq BID --> consider coumadin if hgb remains stable --> will karen Rn # Anemia of iron deificiency --> anemia panel has been reviewed --> iron iv has been started --> monitor for bleed # Leukopenia -- likely mulfifactorial --> meds noted --> consider hep and hiv panel --> iamging as needed # COPD, suspected # Current smoker # Chest pain, atypical --> per Dr. Luther # Acute decompensated CHF --> diuresis per cards # A fib, rate controlled --> dobutamine, bumex, cards --> holding for now anticoag --> cards aware #Pleural effusion, due to CHF - nebs prn sob/wheeze - nicotine patch offered, refused - ctm resp status and effusion, may need throa - sup o2 as needed #AALIYAH, suspect cardiorenal syndrome (baseline cr unknown) --> per renal # Hyperkalemia - resolved # Transaminitis, AST elevation # Hyperbilirubinemia # PPx --> scds/lovenox Appreciate consultation and dw RN Jonn River MD Mar 26, 2020 06:23
[2020-03-26 06:44] LABS: BASOPHILS % (AUTO) 0.8 % (0.0-2.0); EOSINOPHILS % (AUTO) 0.8 % (0.0-3.0); HEMOGLOBIN 9.1 G/DL (14.2-18.0); LYMPHOCYTES % (AUTO) 15.4 % (20.0-45.0); MEAN CORPUSCULAR VOLUME 79 FL (80-99); MONOCYTES % (AUTO) 10.3 % (1.0-10.0); NEUTROPHILS % (AUTO) 72.7 % (45.0-75.0); PLATELET COUNT 225 K/UL (150-450); RED BLOOD COUNT 3.53 M/UL (4.70-6.10); RED CELL DISTRIBUTION WIDTH 18.8 % (11.6-14.8); WHITE BLOOD COUNT 4.4 K/UL (4.8-10.8)
--- NOTE | 2020-03-26 07:25 | NUR ---
NURSE NOTES: Report received from ZENA Verde. Patient, awake, alert, afebrile on bed and eating his breakfast. With 2lpm oxygen via NC tolerating well. With right femoral triple lumen catheter intact, asymptomatic and flushed. Head of bed elevated. Continue to monitor patient.
[2020-03-26 07:26] LABS: ANION GAP 6 mmol/L (5-15); BLOOD UREA NITROGEN 40 mg/dL (7-18); CALCIUM 8.8 MG/DL (8.5-10.1); CARBON DIOXIDE 33 MMOL/L (21-32); CHLORIDE 98 MMOL/L (98-107); POTASSIUM 3.9 MMOL/L (3.5-5.1); SODIUM 137 MMOL/L (136-145)
--- NOTE | 2020-03-26 07:29 | NUR ---
HAND-OFF: Report given to CLAIR Woodall RN.
[2020-03-26 08:00] VITALS: BP 93/65
--- NOTE | 2020-03-26 08:10 | NUR ---
NURSE NOTES: Patient was weighed in bed and standing scale and resulted to 53.5 kg. Adjusted dobutamine ml/hr dose based on current weight of patient. Pt is alert, awake and no any discomforts. No complains or any concerns for now
[2020-03-26] MEDS: Aspirin Baby 81mg ORAL SCH (09:17)
[2020-03-26] MEDS: Docusate 100mg cap ORAL SCH ×2 (09:17→23:26)
[2020-03-26] MEDS: Enoxaparin 60mg Inj SUBQ SCH (10:39)
--- NOTE | 2020-03-26 11:39 | Cardiac Electrophysiology PN ---
Assessment/Plan Assessment/Plan 1. Exacerbation of congestive heart failure in this patient with severe cardiomyopathy EF 10-15%. On Lasix 40 mg IV b.i.d. Avoid PRAVEEN inhibitor and angiotensin-receptor blockers in view of acute renal failure and creatinine of more than 3. Decrease Dobutamine to 3 mc/kg/min and decrease Lasix to 40 iv daily Awaiting records from [facility] 2. Atrial fibrillation. The rate is currently controlled. It actually goes in the 30s, off any AV-regis blocking agents. Off anticoagulation for Hb 8 and bleeding from RFV central line 3. Hypertension. Continue current medical therapy. 4. Renal failure, creatinine of 3.3. On dobutamine drip Cr improved to 2. FU Dr Tucker 5. Anemia, hemoglobin of 8.3. S/P PRBC one unit DW RN Subjective Subjective In SDU on Dobutamine drip 4 mc in atrial fib with frequent NSVT. Still waiting records from [facility] Objective Last 24 Hour Vital Signs Date Time Temp Pulse Resp B/P (MAP) Pulse Ox O2 Delivery O2 Flow Rate FiO2 03/26/20 08:00 97.7 80 20 93/65 (74) 100 03/26/20 08:00 2.0 03/26/20 08:00 Nasal Cannula 2.0 03/26/20 07:36 123 03/26/20 04:13 118/62 03/26/20 04:00 2.0 03/26/20 04:00 116 03/26/20 04:00 Nasal Cannula 2.0 03/26/20 04:00 98.1 116 20 112/75 (87) 100 03/26/20 00:00 97.8 101 18 118/62 (80) 98 03/26/20 00:00 2.0 03/26/20 00:00 Nasal Cannula 2.0 03/25/20 20:00 Nasal Cannula 2.0 03/25/20 20:00 98.3 80 18 111/65 (80) 100 03/25/20 20:00 2.0 03/25/20 20:00 80 03/25/20 16:00 2.0 03/25/20 16:00 Nasal Cannula 2.0 03/25/20 16:00 97.6 102 18 100/61 (74) 97 03/25/20 16:00 91 4/27/20 13:01 110/63 03/25/20 12:00 2.0 03/25/20 12:00 98.0 102 18 110/64 (79) 97 03/25/20 12:00 Nasal Cannula 2.0 03/25/20 12:00 97 Intake and Output 03/25/20 03/26/20 19:00 07:00 Intake Total 1198.674 ml 375.948 ml Output Total 1950 ml 1525 ml Balance -751.326 ml -1149.052 ml Intake Oral 1000 ml 180 ml IV Total 198.674 ml 195.948 ml Output Urine Total 1950 ml 1525 ml Laboratory Tests Test 03/26/20 04:15 White Blood Count 4.4 K/UL (4.8-10.8) L Red Blood Count 3.53 M/UL (4.70-6.10) L Hemoglobin 9.1 G/DL (14.2-18.0) L Hematocrit 28.0 % (42.0-52.0) L Mean Corpuscular Volume 79 FL (80-99) L Mean Corpuscular Hemoglobin 25.8 PG (27.0-31.0) L Mean Corpuscular Hemoglobin Concent 32.5 G/DL (32.0-36.0) Red Cell Distribution Width 18.8 % (11.6-14.8) H Platelet Count 225 K/UL (150-450) Mean Platelet Volume 6.7 FL (6.5-10.1) Neutrophils (%) (Auto) 72.7 % (45.0-75.0) Lymphocytes (%) (Auto) 15.4 % (20.0-45.0) L Monocytes (%) (Auto) 10.3 % (1.0-10.0) H Eosinophils (%) (Auto) 0.8 % (0.0-3.0) Basophils (%) (Auto) 0.8 % (0.0-2.0) Sodium Level 137 MMOL/L (136-145) Potassium Level 3.9 MMOL/L (3.5-5.1) Chloride Level 98 MMOL/L (98-107) Carbon Dioxide Level 33 MMOL/L (21-32) H Anion Gap 6 mmol/L (5-15) Blood Urea Nitrogen 40 mg/dL (7-18) H Creatinine 2.0 MG/DL (0.55-1.30) H Estimat Glomerular Filtration Rate 33.9 mL/min (>60) Glucose Level 123 MG/DL (74-106) H Calcium Level 8.8 MG/DL (8.5-10.1) Magnesium Level 1.6 MG/DL (1.8-2.4) L Hepatitis A IgM Antibody Pending Hepatitis B Surface Antigen Pending Hepatitis B Core IgM Antibody Pending Hepatitis C Antibody Pending HIV (1&2) Antibody Rapid Negative (NEGATIVE) Objective HEAD AND NECK: Positive JVD. LUNGS: Decreased breath sounds. CARDIOVASCULAR: Shows irregular S1 and S2 with no gallop or murmur. ABDOMEN: Soft. EXTREMITIES: 1+ pitting edema. Jovi Luther MD Mar 26, 2020 11:39
--- NOTE | 2020-03-26 11:50 | NUR ---
NURSE NOTES: Pt was seen by Dr Camara with orders.
--- NOTE | 2020-03-26 11:51 | Nephrology Progress Note ---
Assessment/Plan Plan #AALIYAH on CKD- ?--unclear baseline - cardiorenal syndrome 1 #acute on chronic combined systolic and diastolic CHF #afib- rate controlled #anemia- of CKD? #elevated liver enzymes #h/o HTN #COPD #tobacco use disorder - renal US no signficant findings - continue lasix 40 IV daily - follow echo-. EF < 15% - dobutamin drip per cardiology - monitor UOP- strict- place bansal - daily weights - monitor and replete lytes - - continue asa - prbc transfusion prn - target hemoglobin > 7.5 - check iron panel and ferritin- adequate - consider epo time spent 72 min- > 50% on care coordination and counselling Subjective ROS Limited/Unobtainable: No Constitutional: Denies: no symptoms, chills, diaphoresis, fever, malaise, weakness, other HEENT: Denies: no symptoms, eye pain, blurred vision, tearing, double vision, ear pain, ear discharge, nose pain, nose congestion, throat pain, throat swelling, mouth pain, mouth swelling, other Genitourinary: Denies: no symptoms, burning, discharge, frequency, flank pain, hematuria, incontinence, pain, urgency, other Subjective Cr down to 2.0 UOP 3.4L switched to lasix 40 daily hemoglobin stable Objective Objective Last 24 Hour Vital Signs Date Time Temp Pulse Resp B/P (MAP) Pulse Ox O2 Delivery O2 Flow Rate FiO2 03/26/20 08:00 97.7 80 20 93/65 (74) 100 03/26/20 08:00 2.0 03/26/20 08:00 Nasal Cannula 2.0 03/26/20 07:36 123 03/26/20 04:13 118/62 03/26/20 04:00 2.0 03/26/20 04:00 116 03/26/20 04:00 Nasal Cannula 2.0 03/26/20 04:00 98.1 116 20 112/75 (87) 100 03/26/20 00:00 97.8 101 18 118/62 (80) 98 03/26/20 00:00 2.0 03/26/20 00:00 Nasal Cannula 2.0 03/25/20 20:00 Nasal Cannula 2.0 03/25/20 20:00 98.3 80 18 111/65 (80) 100 03/25/20 20:00 2.0 03/25/20 20:00 80 03/25/20 16:00 2.0 03/25/20 16:00 Nasal Cannula 2.0 03/25/20 16:00 97.6 102 18 100/61 (74) 97 03/25/20 16:00 91 03/25/20 13:01 110/63 03/25/20 12:00 2.0 03/25/20 12:00 98.0 102 18 110/64 (79) 97 03/25/20 12:00 Nasal Cannula 2.0 03/25/20 12:00 97 Intake and Output 03/25/20 03/26/20 19:00 07:00 Intake Total 1198.674 ml 375.948 ml Output Total 1950 ml 1525 ml Balance -751.326 ml -1149.052 ml Intake Oral 1000 ml 180 ml IV Total 198.674 ml 195.948 ml Output Urine Total 1950 ml 1525 ml Laboratory Tests 03/26/20 04:15: White Blood Count 4.4L, Red Blood Count 3.53L, Hemoglobin 9.1L, Hematocrit 28.0L , Mean Corpuscular Volume 79L, Mean Corpuscular Hemoglobin 25.8L, Mean Corpuscular Hemoglobin Concent 32.5, Red Cell Distribution Width 18.8H, Platelet Count 225, Mean Platelet Volume 6.7, Neutrophils (%) (Auto) 72.7, Lymphocytes (%) (Auto) 15.4L, Monocytes (%) (Auto) 10.3H, Eosinophils (%) (Auto ) 0.8, Basophils (%) (Auto) 0.8, Sodium Level 137, Potassium Level 3.9, Chloride Level 98, Carbon Dioxide Level 33H, Anion Gap 6, Blood Urea Nitrogen 40H, Creatinine 2.0H, Estimat Glomerular Filtration Rate 33.9, Glucose Level 123H, Calcium Level 8.8, Magnesium Level 1.6L, Hepatitis A IgM Antibody [Pending ], Hepatitis B Surface Antigen [Pending], Hepatitis B Core IgM Antibody [Pending ], Hepatitis C Antibody [Pending], HIV (1&2) Antibody Rapid Negative Height (Feet): 5 Height (Inches): 5.00 Weight (Pounds): 118 Objective General Appearance: no apparent distress Lines, tubes and drains: peripheral HEENT: normocephalic Neck: non-tender Respiratory/Chest: chest wall non-tender, crackles/rales Cardiovascular/Chest: normal peripheral pulses, normal rate, regularly irregular Abdomen: normal bowel sounds, non tender, soft Extremities: moderate edema Neurologic: alert, oriented x 3, responsive Gini Spann M.D. Mar 26, 2020 11:51
[2020-03-26 12:00] VITALS: BP 106/61
--- NOTE | 2020-03-26 13:17 | NUR ---
CASE MANAGEMENT: REVIEW SI: CHF EXACERBATION . A-FIB . HEMATURIA . PITTING EDEMA in EXTREMITIES T 97.7 HR 123 RR 20 BP 93/65 SAT 100% NC/2L WBC 4.4 H/H 9.1/28.0 BUN 40 CR 2.0 IS: VENOFER IV QHS DOBUTAMINE IV Q24HR LASIX 40MG IV QD MAG SULFATE IV @100ML/HR PRBC TRANSFUSION PRN DAILY WEIGHT STRICT I&O [facility] CATH PLACEMENT STEP DOWN UNIT STATUS DCP: PATIENT IS FROM HOME
--- NOTE | 2020-03-26 15:01 | Surgery Progress Note ---
Surgery Progress Note Subjective Procedure Performed Right femoral central venous catheter insertion Additional Comments no acute events comfortable stable labs noted no complaints Objective Last 24 Hour Vital Signs Date Time Temp Pulse Resp B/P (MAP) Pulse Ox O2 Delivery O2 Flow Rate FiO2 03/26/20 12:50 106/61 03/26/20 12:00 Nasal Cannula 2.0 03/26/20 12:00 2.0 03/26/20 12:00 98.2 109 20 106/61 (76) 100 03/26/20 11:51 93 03/26/20 08:00 97.7 80 20 93/65 (74) 100 03/26/20 08:00 2.0 03/26/20 08:00 Nasal Cannula 2.0 03/26/20 07:36 123 03/26/20 04:13 118/62 03/26/20 04:00 2.0 03/26/20 04:00 116 03/26/20 04:00 Nasal Cannula 2.0 03/26/20 04:00 98.1 116 20 112/75 (87) 100 03/26/20 00:00 97.8 101 18 118/62 (80) 98 03/26/20 00:00 2.0 03/26/20 00:00 Nasal Cannula 2.0 03/25/20 20:00 Nasal Cannula 2.0 03/25/20 20:00 98.3 80 18 111/65 (80) 100 03/25/20 20:00 2.0 03/25/20 20:00 80 03/25/20 16:00 2.0 03/25/20 16:00 Nasal Cannula 2.0 03/25/20 16:00 97.6 102 18 100/61 (74) 97 03/25/20 16:00 91 I&O Intake and Output 03/25/20 03/26/20 19:00 07:00 Intake Total 1198.674 ml 375.948 ml Output Total 1950 ml 1525 ml Balance -751.326 ml -1149.052 ml Intake Oral 1000 ml 180 ml IV Total 198.674 ml 195.948 ml Output Urine Total 1950 ml 1525 ml Dressing: other Wound: other Drains: other Cardiovascular: RSR Respiratory: decreased breath sounds Abdomen: soft, non-tender, present bowel sounds Extremities: no tenderness, no cyanosis Laboratory Tests Test 03/26/20 04:15 White Blood Count 4.4 K/UL (4.8-10.8) L Red Blood Count 3.53 M/UL (4.70-6.10) L Hemoglobin 9.1 G/DL (14.2-18.0) L Hematocrit 28.0 % (42.0-52.0) L Mean Corpuscular Volume 79 FL (80-99) L Mean Corpuscular Hemoglobin 25.8 PG (27.0-31.0) L Mean Corpuscular Hemoglobin Concent 32.5 G/DL (32.0-36.0) Red Cell Distribution Width 18.8 % (11.6-14.8) H Platelet Count 225 K/UL (150-450) Mean Platelet Volume 6.7 FL (6.5-10.1) Neutrophils (%) (Auto) 72.7 % (45.0-75.0) Lymphocytes (%) (Auto) 15.4 % (20.0-45.0) L Monocytes (%) (Auto) 10.3 % (1.0-10.0) H Eosinophils (%) (Auto) 0.8 % (0.0-3.0) Basophils (%) (Auto) 0.8 % (0.0-2.0) Sodium Level 137 MMOL/L (136-145) Potassium Level 3.9 MMOL/L (3.5-5.1) Chloride Level 98 MMOL/L (98-107) Carbon Dioxide Level 33 MMOL/L (21-32) H Anion Gap 6 mmol/L (5-15) Blood Urea Nitrogen 40 mg/dL (7-18) H Creatinine 2.0 MG/DL (0.55-1.30) H Estimat Glomerular Filtration Rate 33.9 mL/min (>60) Glucose Level 123 MG/DL (74-106) H Calcium Level 8.8 MG/DL (8.5-10.1) Magnesium Level 1.6 MG/DL (1.8-2.4) L Hepatitis A IgM Antibody Pending Hepatitis B Surface Antigen Pending Hepatitis B Core IgM Antibody Pending Hepatitis C Antibody Pending HIV (1&2) Antibody Rapid Negative (NEGATIVE) Plan Problems: (1) Renal insufficiency Assessment & Plan: 64-year-old male presented with shortness of breath chest pain currently admitted for medical care and management identified to have renal insufficiency, hypotension, abnormal labs. (2) Abnormal LFTs Assessment & Plan: Ultrasound required Ordered Trend labs We will follow-up (3) Hypotension Assessment & Plan: Patient with hypotension requiring pressors. Eval myself at the bedside central venous catheter indicated recommended Discussed with medical team nursing staff and care plan with patient Please see procedure note we will follow with recommendations Chuck Castelan Mar 26, 2020 15:01
--- NOTE | 2020-03-26 15:34 | General Progress Note ---
Assessment/Plan Assessment/Plan: 64 yo M w/ MMP PMHx A fib, CHF, Smoker w/ possible COPD presented t the ED via EMS for several days of CP and SOB. Pt reports 1 week of progressive chest heaviness and pain. Pain is described as moderate, constant w/ waxing and waning , not worse w/ exertion. Also reports bl le edema and dry cough. #Chest pain, atypical #Acute decompensated CHF #Acute on Chronic systolic heart failure, EF 15% #A fib, rate controlled #HTN - cardiac monitor - 03/24: s/p central line placement by gen sx - TTE -> EF < 15% - trend chem, goal k > 4, mag > 2 - pain control - supportive care - cont dobutamine gtt per cardio - s/p bumex 1mg IV BID - lasix 40 BID - hydralazine, isordil - hold coreg given bradycardia - cardiology consult, appreciate recs: avoid PRAVEEN given AALIYAH - d/w Heme, ok to start lovenox BID #Acute anemia, suspect blood loss on AC - repeat CBC this am closer to baseline from admit - 03/24: s/p 1 U PRBC - FOBT - goal Hgb >7.5, Transfuse for Hb < 7.5 -Heme consulted, OK to start lovenox BID #COPD, suspected #Current smoker #Pleural effusion, due to CHF - nebs prn sob/wheeze - nicotine patch offered, refused - ctm resp status and effusion, may need throa - sup o2 as needed #AALIYAH, suspect cardiorenal syndrome (baseline cr unknown) - diuresis as above - trend cr - avoid nephro toxic meds #Hyperkalemia - resolved - ctm #Transaminitis, AST elevation #Hyperbilirubinemia #Cholelithiasis - suspect due to hepatic congestion - ABD us w/ cholelithiasis, GB wall thickening - no abd pain at this time - trend LFTs #FEN/PPx - 1500cc fluid restriction - trend chem, replete lytes as needed - cardiac diet - DVT ppx: lovenox FULL CODE I spent 39 min on this case and 25 min was dedicated to counseling and care coordination including discussion w/RN, cardiology and nephro reguarding medications. Time of this note may not reflect the time of the clinical encounter. Subjective Allergies: Coded Allergies: No Known Allergies (Unverified , 03/23/20) Subjective F/u acute on chronic CHF exacerbation. Remains on Dobuta gtt Cr down trending Pt denies any CP, SOB, cough at this time. 12 pt ros neg except as above Objective Last 24 Hour Vital Signs Date Time Temp Pulse Resp B/P (MAP) Pulse Ox O2 Delivery O2 Flow Rate FiO2 03/26/20 12:50 106/61 03/26/20 12:00 Nasal Cannula 2.0 03/26/20 12:00 2.0 03/26/20 12:00 98.2 109 20 106/61 (76) 100 03/26/20 11:51 93 03/26/20 08:00 97.7 80 20 93/65 (74) 100 03/26/20 08:00 2.0 03/26/20 08:00 Nasal Cannula 2.0 03/26/20 07:36 123 03/26/20 04:13 118/62 03/26/20 04:00 2.0 03/26/20 04:00 116 03/26/20 04:00 Nasal Cannula 2.0 03/26/20 04:00 98.1 116 20 112/75 (87) 100 03/26/20 00:00 97.8 101 18 118/62 (80) 98 03/26/20 00:00 2.0 03/26/20 00:00 Nasal Cannula 2.0 03/25/20 20:00 Nasal Cannula 2.0 03/25/20 20:00 98.3 80 18 111/65 (80) 100 03/25/20 20:00 2.0 03/25/20 20:00 80 03/25/20 16:00 2.0 03/25/20 16:00 Nasal Cannula 2.0 03/25/20 16:00 97.6 102 18 100/61 (74) 97 03/25/20 16:00 91 Intake and Output 03/25/20 03/26/20 19:00 07:00 Intake Total 1198.674 ml 375.948 ml Output Total 1950 ml 1525 ml Balance -751.326 ml -1149.052 ml Intake Oral 1000 ml 180 ml IV Total 198.674 ml 195.948 ml Output Urine Total 1950 ml 1525 ml Laboratory Tests 03/26/20 04:15: White Blood Count 4.4L, Red Blood Count 3.53L, Hemoglobin 9.1L, Hematocrit 28.0L , Mean Corpuscular Volume 79L, Mean Corpuscular Hemoglobin 25.8L, Mean Corpuscular Hemoglobin Concent 32.5, Red Cell Distribution Width 18.8H, Platelet Count 225, Mean Platelet Volume 6.7, Neutrophils (%) (Auto) 72.7, Lymphocytes (%) (Auto) 15.4L, Monocytes (%) (Auto) 10.3H, Eosinophils (%) (Auto ) 0.8, Basophils (%) (Auto) 0.8, Sodium Level 137, Potassium Level 3.9, Chloride Level 98, Carbon Dioxide Level 33H, Anion Gap 6, Blood Urea Nitrogen 40H, Creatinine 2.0H, Estimat Glomerular Filtration Rate 33.9, Glucose Level 123H, Calcium Level 8.8, Magnesium Level 1.6L, Hepatitis A IgM Antibody [Pending ], Hepatitis B Surface Antigen [Pending], Hepatitis B Core IgM Antibody [Pending ], Hepatitis C Antibody [Pending], HIV (1&2) Antibody Rapid Negative Height (Feet): 5 Height (Inches): 5.00 Weight (Pounds): 118 Objective General Appearance: WD/WN, no apparent distress, alert HEENT: normocephalic, atraumatic, PERRL, EOMI Neck: normal alignment, supple Respiratory/Chest: lungs clear, normal breath sounds, no respiratory distress, no accessory muscle use Cardiovascular/Chest: normal peripheral pulses, regularly rhythm, no gallop/ murmur, JVD Abdomen: normal bowel sounds, non tender, soft Extremities: no edema Neurologic: blocker hand II-XII grossly normal, alert, normal mood/affect Laisha Lares M.D. Mar 26, 2020 15:33
[2020-03-26] MEDS ORDERED: Magnesium Oxide 400mg tab ORAL SCH (15:35)
[2020-03-26 16:15] VITALS: BP 110/64
--- NOTE | 2020-03-26 18:30 | NUR ---
NURSE NOTES: Placed a call to [facility] medical records department and left a voicemail to call us back regarding the cardiology notes written on the the fax cover sheet that was faxed 03/26 at 1634. Awaiting for call back
--- NOTE | 2020-03-26 19:10 | NUR ---
HAND-OFF: Report given to Tod Mathis RN.
--- NOTE | 2020-03-26 19:15 | NUR ---
NURSE NOTES: Received pt in bed resting, Awake and Oriented X4. denies pain. no distress notes. Respiration even and unlabored. On 2L/NC. RH 20 G and LAC 20 G IV sites are patent and intact w/o redness or swelling. Right femoral central line is patent and intact w/Dobutamine drip at fixed rate of 3 mcg/kg/hr as ordered. VSS. Afebrile. SR on warehouse processor. Voiding via urinal of clear yellow urine. Compliant with water restriction. Bed in lowest position and locked in place. Side rails up X2. Bed alarm engaged. call light within reach. will POC.
[2020-03-26 20:00] VITALS: BP 121/67
[2020-03-26] MEDS: Dyna-Hex 2% Top Sol 2oz TOPIC SCH (23:25)
[2020-03-26] MEDS: Iron Sucrose 100 MG in NS 55 ML IV SCH (23:25)
[2020-03-27] VITALS: BP 100/57
--- NOTE | 2020-03-27 | NUR ---
NURSE NOTES: Sleeping off and on. Respiration even and unlabored. On 2L/NC. Dobutamine infusing well at 3 mcg/kg/hr. VSS. Afebrile. SR on monitoring engineer. Denies pain. Condition unchanged. No distress noted. Bed in lowest position and locked in place. Side rails up X2. Bed alarm engaged. Call light within reach. Will POC.
--- NOTE | 2020-03-27 | NUR ---
NURSE NOTES: Sleeping off and on. No distress notes. Respiration even and unlabored. On 2L/NC. Dobutamine infusing well at 3 mcg/kg/hr. as ordered. VSS. Afebrile. SR on vp site. Voiding well via urinal of clear yellow urine. Bed in lowest position and locked in place. Side rails up X2. Bed alarm engaged. Call light within reach. Will POC.
[2020-03-27 04:00] VITALS: BP 116/65
--- NOTE | 2020-03-27 04:00 | NUR ---
NURSE NOTES: 0000 Disregard above notes. It was meant for 0400. Sleeping off and on. Respiration even and unlabored. On 2L/NC. Dobutamine infusing well at 3 mcg/kg/hr. VSS. Afebrile. SR on hospital monitor. Denies pain. Condition unchanged. No distress noted. Bed in lowest position and locked in place. Side rails up X2. Bed alarm engaged. Call light within reach. Will POC.
--- NOTE | 2020-03-27 06:11 | Hematology/Onc Progress Note ---
Assessment/Plan Assessment/Plan Assessment and recs: # Hypercoagulable disorder with afib, has been seen by cards --> rate control with Dr. Luther --> start lovenox sq BID --> consider coumadin if hgb remains stable --> will karen Rn # Anemia of iron deificiency --> anemia panel has been reviewed --> iron iv has been started --> monitor for bleed # Leukopenia -- likely mulfifactorial, may be also dic --> meds noted --> consider hep and hiv panel-->NEG --> iamging as needed-->WNL --> on pressors for hypotension # COPD, suspected --> per pulm # Current smoker # Chest pain, atypical --> per Dr. Luther # Acute decompensated CHF --> diuresis per cards # A fib, rate controlled --> dobutamine, bumex, cards --> holding for now anticoag --> cards aware # Pleural effusion, due to CHF - nebs prn sob/wheeze - nicotine patch offered, refused - ctm resp status and effusion, may need throa - sup o2 as needed # AALIYAH, suspect cardiorenal syndrome (baseline cr unknown) --> per renal # Hyperkalemia - resolved # Transaminitis, AST elevation # Hyperbilirubinemia # PPx --> scds/lovenox Appreciate consultation and karen RN Subjective HEENT: Denies: no symptoms, eye pain, blurred vision, tearing, double vision, ear pain, ear discharge, nose pain, nose congestion, throat pain, throat swelling, mouth pain, mouth swelling, other Cardiovascular: Denies: no symptoms, chest pain, edema, irregular heart rate, lightheadedness, palpitations, syncope, other Respiratory: Denies: no symptoms, cough, shortness of breath, SOB with excertion, SOB at rest, sputum, wheezing, other Gastrointestinal/Abdominal: Denies: no symptoms, abdomen distended, abdominal pain, black stools, tarry stools, blood in stool, constipated, diarrhea, difficulty swallowing, nausea, poor appetite, poor fluid intake, rectal bleeding , vomiting, other Genitourinary: Denies: no symptoms, burning, discharge, frequency, flank pain, hematuria, incontinence, pain, urgency, other Neurologic/Psychiatric: Denies: no symptoms, anxiety, depressed, emotional problems, headache, numbness, paresthesia, pre-existing deficit, seizure, tingling, tremors, weakness, other Endocrine: Denies: no symptoms, excessive sweating, flushing, intolerance to cold, intolerance to heat, increased hunger, increased thirst, increased urine, unexplained weight gain, unexplained weight loss, other Hematologic/Lymphatic: Denies: no symptoms, anemia, easy bleeding, easy bruising, adenopathy, other Allergies: Coded Allergies: No Known Allergies (Unverified , 03/23/20) Subjective 03/27 on 2lnc, on dobutamine, awake and alert, no bleeding Objective Objective Current Medications Medications (Trade) Dose Ordered Sig/Hunter Route PRN Reason Start Time Stop Time Status Last Admin Dose Admin Acetaminophen/ Hydrocodone Bitart ([place] 5/325) 1 tab Q4H PRN ORAL Moderate Pain (Pain Scale 4-6) 03/24/20 11:30 03/30/20 11:29 03/24/20 22:05 Aspirin (ASA) 81 mg DAILY ORAL 03/24/20 09:00 05/07/20 08:59 03/26/20 09:17 Chlorhexidine Gluconate (Aruna-Hex 2%) 1 applic DAILY@1999 TOPIC 03/24/20 20:00 06/22/20 19:59 03/26/20 23:25 Dextrose (Dextrose 50%) 25 ml Q30M PRN IV Hypoglycemia 03/24/20 08:15 06/21/20 04:14 Dextrose (Dextrose 50%) 50 ml Q30M PRN IV Hypoglycemia 03/24/20 08:15 06/21/20 04:14 Dobutamine HCl 250 ml @ 9.634 mls/ hr Q24H IV 03/26/20 12:44 06/23/20 12:43 03/26/20 23:51 Docusate Sodium (Colace) 100 mg EVERY 12 HOURS ORAL 03/24/20 09:00 04/22/20 08:59 03/26/20 23:26 Enoxaparin Sodium (Lovenox) 60 mg DAILY SUBQ 03/26/20 10:30 06/24/20 10:29 03/26/20 10:39 Furosemide (Lasix) 40 mg DAILY IV 03/27/20 09:00 04/24/20 15:59 Hydromorphone HCl (Dilaudid) 2 mg Q4H PRN ORAL Severe Pain (Pain Scale 7-10) 03/24/20 08:30 03/30/20 08:29 Iron Sucrose 100 mg/Sodium Chloride 60 ml @ 240 mls/hr BEDTIME IV 03/26/20 21:00 03/30/20 21:14 03/26/20 23:25 Ondansetron HCl (Zofran) 4 mg Q6H PRN IVP Nausea & Vomiting 03/24/20 08:30 04/22/20 08:29 03/24/20 18:12 Last 24 Hour Vital Signs Date Time Temp Pulse Resp B/P (MAP) Pulse Ox O2 Delivery O2 Flow Rate FiO2 03/27/20 04:00 2.0 03/27/20 04:00 Nasal Cannula 2.0 03/27/20 04:00 97.9 87 20 116/65 (82) 99 03/27/20 03:34 92 03/27/20 00:00 2.0 03/27/20 00:00 64 03/27/20 00:00 97.1 67 20 100/57 (71) 100 03/27/20 00:00 Nasal Cannula 2.0 03/26/20 23:51 110/64 03/26/20 23:27 87 03/26/20 20:00 97.4 64 20 121/67 (85) 97 03/26/20 20:00 Nasal Cannula 2.0 03/26/20 16:15 97.9 83 20 110/64 (79) 100 03/26/20 16:00 2.0 03/26/20 16:00 Nasal Cannula 2.0 03/26/20 15:44 91 03/26/20 12:50 106/61 03/26/20 12:00 Nasal Cannula 2.0 03/26/20 12:00 2.0 03/26/20 12:00 98.2 109 20 106/61 (76) 100 03/26/20 11:51 93 03/26/20 08:00 97.7 80 20 93/65 (74) 100 03/26/20 08:00 2.0 03/26/20 08:00 Nasal Cannula 2.0 03/26/20 07:36 123 03/26/20 04:13 118/62 03/26/20 04:00 2.0 03/26/20 04:00 116 03/26/20 04:00 Nasal Cannula 2.0 03/26/20 04:00 98.1 116 20 112/75 (87) 100 03/26/20 00:00 97.8 101 18 118/62 (80) 98 03/26/20 00:00 2.0 03/26/20 00:00 Nasal Cannula 2.0 03/25/20 20:00 Nasal Cannula 2.0 03/25/20 20:00 98.3 80 18 111/65 (80) 100 03/25/20 20:00 2.0 03/25/20 20:00 80 03/25/20 16:00 2.0 03/25/20 16:00 Nasal Cannula 2.0 03/25/20 16:00 97.6 102 18 100/61 (74) 97 03/25/20 16:00 91 03/25/20 13:01 110/63 03/25/20 12:00 2.0 03/25/20 12:00 98.0 102 18 110/64 (79) 97 03/25/20 12:00 Nasal Cannula 2.0 03/25/20 12:00 97 03/25/20 09:31 87/60 03/25/20 08:00 98.4 101 18 114/60 (78) 97 03/25/20 08:00 111 03/25/20 08:00 2.0 03/25/20 08:00 Nasal Cannula 2.0 Intake and Output 03/26/20 03/27/20 19:00 07:00 Intake Total 1036.193 ml 156.070 ml Balance 1036.193 ml 156.070 ml Intake Oral 700 ml IV Total 336.193 ml 156.070 ml # Voids 4 Labs Test 03/24/20 09:10 03/24/20 11:49 03/24/20 19:05 03/25/20 03:40 White Blood Count 5.1 K/UL (4.8-10.8) 5.0 K/UL (4.8-10.8) 4.3 K/UL (4.8-10.8) Red Blood Count 3.16 M/UL (4.70-6.10) 3.30 M/UL (4.70-6.10) 3.36 M/UL (4.70-6.10) Hemoglobin 7.9 G/DL (14.2-18.0) 8.5 G/DL (14.2-18.0) 8.7 G/DL (14.2-18.0) Hematocrit 24.8 % (42.0-52.0) 27.3 % (42.0-52.0) 26.7 % (42.0-52.0) Mean Corpuscular Volume 79 FL (80-99) 83 FL (80-99) 79 FL (80-99) Mean Corpuscular Hemoglobin 25.0 PG (27.0-31.0) 25.7 PG (27.0-31.0) 25.9 PG (27.0-31.0) Mean Corpuscular Hemoglobin Concent 31.8 G/DL (32.0-36.0) 31.0 G/DL (32.0-36.0) 32.6 G/DL (32.0-36.0) Red Cell Distribution Width 19.8 % (11.6-14.8) 22.4 % (11.6-14.8) 19.4 % (11.6-14.8) Platelet Count 227 K/UL (150-450) 219 K/UL (150-450) 231 K/UL (150-450) Mean Platelet Volume 6.2 FL (6.5-10.1) 6.6 FL (6.5-10.1) 5.9 FL (6.5-10.1) Neutrophils (%) (Auto) % (45.0-75.0) 77.1 % (45.0-75.0) 73.1 % (45.0-75.0) Lymphocytes (%) (Auto) % (20.0-45.0) 12.5 % (20.0-45.0) 16.1 % (20.0-45.0) Monocytes (%) (Auto) % (1.0-10.0) 8.6 % (1.0-10.0) 8.7 % (1.0-10.0) Eosinophils (%) (Auto) % (0.0-3.0) 0.5 % (0.0-3.0) 0.9 % (0.0-3.0) Basophils (%) (Auto) % (0.0-2.0) 1.2 % (0.0-2.0) 1.1 % (0.0-2.0) Differential Total Cells Counted 100 Neutrophils % (Manual) 80 % (45-75) Lymphocytes % (Manual) 11 % (20-45) Monocytes % (Manual) 8 % (1-10) Eosinophils % (Manual) 0 % (0-3) Basophils % (Manual) 1 % (0-2) Band Neutrophils 0 % (0-8) Platelet Estimate Adequate Platelet Morphology Normal Hypochromasia 3+ Anisocytosis 2+ Microcytosis 1+ Urine Random Total Protein 9 MG/DL (< 11.9) Urine Random Sodium 122 mmol/L (20-110) Urine Creatinine 8.5 MG/DL (30.0-125.0) Sodium Level 140 MMOL/L (136-145) Potassium Level 3.6 MMOL/L (3.5-5.1) Chloride Level 100 MMOL/L (98-107) Carbon Dioxide Level 32 MMOL/L (21-32) Anion Gap 8 mmol/L (5-15) Blood Urea Nitrogen 55 mg/dL (7-18) Creatinine 2.4 MG/DL (0.55-1.30) Estimat Glomerular Filtration Rate 27.5 mL/min (>60) Glucose Level 124 MG/DL (74-106) Calcium Level 9.4 MG/DL (8.5-10.1) Calcium (Send out) 9.4 mg/dL (8.6-10.2) Phosphorus Level 3.7 MG/DL (2.5-4.9) Magnesium Level 1.8 MG/DL (1.8-2.4) Iron Level 61 ug/dL (50-175) Total Iron Binding Capacity 356 ug/dL (250-450) Percent Iron Saturation 17 % (15-50) Unsaturated Iron Binding 295 ug/dL (112-346) Ferritin 45 NG/ML (8-388) Pro-B-Type Natriuretic Peptide 46900 pg/mL (0-125) PTH (Intact) Whole Molecule Comment (.) Parathyroid Hormone (Intact) 25 pg/mL (15-65) Test 03/26/20 04:15 White Blood Count 4.4 K/UL (4.8-10.8) Red Blood Count 3.53 M/UL (4.70-6.10) Hemoglobin 9.1 G/DL (14.2-18.0) Hematocrit 28.0 % (42.0-52.0) Mean Corpuscular Volume 79 FL (80-99) Mean Corpuscular Hemoglobin 25.8 PG (27.0-31.0) Mean Corpuscular Hemoglobin Concent 32.5 G/DL (32.0-36.0) Red Cell Distribution Width 18.8 % (11.6-14.8) Platelet Count 225 K/UL (150-450) Mean Platelet Volume 6.7 FL (6.5-10.1) Neutrophils (%) (Auto) 72.7 % (45.0-75.0) Lymphocytes (%) (Auto) 15.4 % (20.0-45.0) Monocytes (%) (Auto) 10.3 % (1.0-10.0) Eosinophils (%) (Auto) 0.8 % (0.0-3.0) Basophils (%) (Auto) 0.8 % (0.0-2.0) Sodium Level 137 MMOL/L (136-145) Potassium Level 3.9 MMOL/L (3.5-5.1) Chloride Level 98 MMOL/L (98-107) Carbon Dioxide Level 33 MMOL/L (21-32) Anion Gap 6 mmol/L (5-15) Blood Urea Nitrogen 40 mg/dL (7-18) Creatinine 2.0 MG/DL (0.55-1.30) Estimat Glomerular Filtration Rate 33.9 mL/min (>60) Glucose Level 123 MG/DL (74-106) Calcium Level 8.8 MG/DL (8.5-10.1) Magnesium Level 1.6 MG/DL (1.8-2.4) Hepatitis A IgM Antibody Negative (Negative) Hepatitis B Surface Antigen Negative (Negative) Hepatitis B Core IgM Antibody Negative (Negative) Hepatitis C Antibody <0.1 s/co ratio HIV (1&2) Antibody Rapid Negative (NEGATIVE) Height (Feet): 5 Height (Inches): 5.00 Weight (Pounds): 118 Objective Vitals: reviewed, normal General: normal inspection, well appearing, no apparent distress, alert Head: atraumatic Heent: nc, at Resp: normal inspection, lungs clear, normal breath sounds Cardiovascular: regular rate, rhythm, no edema, JVD Gastrointestinal: normal inspection, normal bowel sounds, non tender, soft, no guarding, no hernia Msk: normal inspection, back normal, normal range of motion Neurologic: alert, motor strength/tone normal, shooter's helper III-XII nml as tested, oriented x3 Psychiatric: normal inspection, judgement/insight normal, mood/affect normal Ext: right venous line femoral less bleeding Jonn River MD Mar 27, 2020 06:11
[2020-03-27 07:10] LABS: HEMATOCRIT 29.1 % (42.0-52.0); HEMOGLOBIN 9.6 G/DL (14.2-18.0); MEAN CORPUSCULAR VOLUME 79 FL (80-99); PLATELET COUNT 237 K/UL (150-450); RED BLOOD COUNT 3.68 M/UL (4.70-6.10); RED CELL DISTRIBUTION WIDTH 18.8 % (11.6-14.8); WHITE BLOOD COUNT 3.4 K/UL (4.8-10.8)
--- NOTE | 2020-03-27 07:13 | NUR ---
NURSE NOTES: Report received from ZENA Verde. Patient, awake, alert, afebrile on bed with no respiratory distress. With 2lpm oxygen via NC tolerating well. With right femoral triple lumen catheter intact, asymptomatic and flushed. Needs attended at this time. Head of bed elevated. Continue to monitor patient
--- NOTE | 2020-03-27 07:18 | NUR ---
HAND-OFF: Report given to ZENA Woodall.
[2020-03-27 07:45] LABS: ALANINE AMINOTRANSFERASE 46 U/L (12-78); ALBUMIN 3.2 G/DL (3.4-5.0); ALBUMIN/GLOBULIN RATIO 0.7 (1.0-2.7); ALKALINE PHOSPHATASE 205 U/L (46-116); ANION GAP 6 mmol/L (5-15); ASPARTATE AMINO TRANSFERASE 31 U/L (15-37); BILIRUBIN,TOTAL 1.6 MG/DL (0.2-1.0); BLOOD UREA NITROGEN 35 mg/dL (7-18); CALCIUM 9.2 MG/DL (8.5-10.1); CARBON DIOXIDE 33 MMOL/L (21-32); CHLORIDE 99 MMOL/L (98-107); CREATININE 1.7 MG/DL (0.55-1.30); POTASSIUM 3.8 MMOL/L (3.5-5.1); SODIUM 138 MMOL/L (136-145)
[2020-03-27 08:00] VITALS: BP 98/59
[2020-03-27] MEDS ORDERED: Milk of Magnesia 30ml Ud ORAL PRN (08:00)
[2020-03-27] MEDS ORDERED: Miralax 17gm pkt ORAL PRN (08:00)
--- NOTE | 2020-03-27 08:08 | General Progress Note ---
Assessment/Plan Assessment/Plan: 64 yo M w/ MMP PMHx A fib, CHF, Smoker w/ possible COPD presented t the ED via EMS for several days of CP and SOB. Pt reports 1 week of progressive chest heaviness and pain. Pain is described as moderate, constant w/ waxing and waning , not worse w/ exertion. Also reports bl le edema and dry cough. #Chest pain, atypical #Acute decompensated CHF #Acute on Chronic systolic heart failure, EF 15% #A fib, rate controlled #HTN - teletypesetter monitor - 03/24: s/p central line placement by gen sx - TTE -> EF < 15% - trend chem, goal k > 4, mag > 2 - supportive care, pain control - s/p bumex 1mg IV BID - lasix 40 daily - hydralazine, isordil - hold coreg given bradycardia - d/w Heme, ok to start lovenox BID, started on 03/26 - d/w cardiology: d/c dobutamin ggt, avoid PRAVEEN given AALIYAH #Acute anemia, suspect blood loss on AC - repeat CBC this am closer to baseline from admit - 03/24: s/p 1 U PRBC - goal Hgb >7.5, Transfuse for Hb < 7.5 - Heme consulted, OK to start lovenox BID #COPD, suspected #Current smoker #Pleural effusion, due to CHF - nebs prn sob/wheeze - nicotine patch offered, refused - ctm resp status and effusion, may need throa - sup o2 as needed #AALIYAH, suspect cardiorenal syndrome (baseline cr unknown) - Cr 3.3 on admission, downtrending - renal US no significant findings - diuresis as above - avoid nephro toxic meds - nephro following #Hyperkalemia - resolved - ctm #Transaminitis, AST elevation - resolved #Hyperbilirubinemia #Cholelithiasis - suspect due to hepatic congestion - ABD us w/ cholelithiasis, GB wall thickening, no CBD dilation noted - AST elevation now resolved - negative tanner's sign, no abd pain at this time - ctm #Constipation - colace BID - PRN miralax, MOM, fleet enema #FEN/PPx - 1500cc fluid restriction - trend chem, replete lytes as needed - cardiac diet - DVT ppx: lovenox FULL CODE I spent 38 min on this case and 20 min was dedicated to counseling and care coordination including discussion w/RN, cardiology and nephro regarding medications. Time of this note may not reflect the time of the clinical encounter. Subjective Allergies: Coded Allergies: No Known Allergies (Unverified , 03/23/20) Subjective F/u acute on chronic CHF exacerbation. Cr down trending Pt states CP improved since admission, no abd pain. 12 pt ros neg except as above Objective Last 24 Hour Vital Signs Date Time Temp Pulse Resp B/P (MAP) Pulse Ox O2 Delivery O2 Flow Rate FiO2 03/27/20 04:00 2.0 03/27/20 04:00 Nasal Cannula 2.0 03/27/20 04:00 97.9 87 20 116/65 (82) 99 03/27/20 03:34 92 03/27/20 00:00 2.0 03/27/20 00:00 64 03/27/20 00:00 97.1 67 20 100/57 (71) 100 03/27/20 00:00 Nasal Cannula 2.0 03/26/20 23:51 110/64 03/26/20 23:27 87 03/26/20 20:00 97.4 64 20 121/67 (85) 97 03/26/20 20:00 Nasal Cannula 2.0 03/26/20 16:15 97.9 83 20 110/64 (79) 100 03/26/20 16:00 2.0 03/26/20 16:00 Nasal Cannula 2.0 03/26/20 15:44 91 03/26/20 12:50 106/61 03/26/20 12:00 Nasal Cannula 2.0 03/26/20 12:00 2.0 03/26/20 12:00 98.2 109 20 106/61 (76) 100 03/26/20 11:51 93 Intake and Output 03/26/20 03/27/20 19:00 07:00 Intake Total 1036.193 ml 165.704 ml Output Total 950 ml Balance 1036.193 ml -784.296 ml Intake Oral 700 ml IV Total 336.193 ml 165.704 ml Output Urine Total 950 ml # Voids 4 Laboratory Tests 03/27/20 06:40: White Blood Count 3.4L, Red Blood Count 3.68L, Hemoglobin 9.6L, Hematocrit 29.1L , Mean Corpuscular Volume 79L, Mean Corpuscular Hemoglobin 25.9L, Mean Corpuscular Hemoglobin Concent 32.9, Red Cell Distribution Width 18.8H, Platelet Count 237, Mean Platelet Volume 6.3L, Neutrophils (%) (Auto) , Lymphocytes (%) (Auto) , Monocytes (%) (Auto) , Eosinophils (%) (Auto) , Basophils (%) (Auto) , Neutrophils % (Manual) [Pending], Lymphocytes % (Manual) [Pending], Platelet Estimate [Pending], Platelet Morphology [Pending], Sodium Level 138, Potassium Level 3.8, Chloride Level 99, Carbon Dioxide Level 33H, Anion Gap 6, Blood Urea Nitrogen 35H, Creatinine 1.7H, Estimat Glomerular Filtration Rate 40.9, Glucose Level 128H, Calcium Level 9.2, Phosphorus Level 3.2, Magnesium Level 2.2, Total Bilirubin 1.6H, Direct Bilirubin 1.0H, Aspartate Amino Transf (AST/SGOT) 31, Alanine Aminotransferase (ALT/SGPT) 46, Alkaline Phosphatase 205H, Total Protein 7.9, Albumin 3.2L, Globulin 4.7, Albumin/Globulin Ratio 0.7L Height (Feet): 5 Height (Inches): 5.00 Weight (Pounds): 121 Objective General Appearance: WD/WN, no apparent distress, alert HEENT: normocephalic, atraumatic, PERRL, EOMI Neck: normal alignment, supple Respiratory/Chest: lungs clear, normal breath sounds, no respiratory distress, no accessory muscle use Cardiovascular/Chest: normal peripheral pulses, regularly rhythm, no gallop/ murmur, JVD Abdomen: normal bowel sounds, non tender, soft, negative tanner's sign Extremities: no edema Neurologic: residential property consultant II-XII grossly normal, alert, normal mood/affect Laisha Lares M.D. Mar 27, 2020 08:08
[2020-03-27] MEDS: Docusate 100mg cap ORAL SCH ×2 (08:16→21:25)
[2020-03-27] MEDS: Aspirin Baby 81mg ORAL SCH (08:16)
[2020-03-27] MEDS: Enoxaparin 60mg Inj SUBQ SCH (08:18)
--- NOTE | 2020-03-27 09:04 | NUR ---
NURSE NOTES: Furosemide not give due to low bp of 98/59
[2020-03-27] MEDS ORDERED: Miralax 17gm pkt ORAL SCH (10:15)
--- NOTE | 2020-03-27 10:23 | NUR ---
RD ASSESSMENT & RECOMMENDATIONS SEE CARE ACTIVITY FOR COMPLETE ASSESSMENT DAILY ESTIMATED NEEDS: Needs based on cardiac, pulmonary 54.7kg 25-35 kcals/kg 7498-4148 total kcals 1-1.5 g protein/kg 55-82 g total protein Fluid per MD, on lasix mL/kg 1.5L/day per MD total fluid mLs NUTRITION DIAGNOSIS: Increased kcal needs r/t wasting and underweight status as evidenced by pt w/ mild to moderate generalized wasting, pt is 88% of [place] Body Weight. CURRENT DIET: Cardiac CURRENT TF: PO DIET RECOMMENDATIONS: LOW NA DIET / liberalized from cardiac ENTERAL NUTRITION RECOMMENDATIONS: to provide PARENTERAL NUTRITION RECOMMENDATIONS: D/AA Rate: IL Rate: Total Rate: Volume: % Dextrose: % AA: Energy (kcals/kg): Protein (g/kg protein): Nonprotein KCALS: GIR (mg CHO/kg/min): % Fat KCALS: NCP: N Ratio: TPN Comment: ADDITIONAL RECOMMENDATIONS: 1) Obtain a standing weight as able 2) Add snacks in b/w meals and HS snack to prevent am hypoglycemia 3) Add Glucerna 1 tetra qdaily 4) On lasix, check lytes daily + daily calibrated bed scale wts 5) Monitor BG and need for CCHO diet (Current BG 120's) rec Bedside BG testing + sliding scale
--- NOTE | 2020-03-27 10:25 | NUR ---
NURSE NOTES: Pt's right femoral triple lumen catheter was noted swollen, has redness, warm to touch and pain to touch 4/10. No other discomforts noted when patient was asked. Lines are not clog and infusing well. Dr Castelan was notified about the skin condition and he stated that he will come by to check it. Dr Luther was notified too due to dobutamine drip of the patient, awaiting for response. Needs were attended and will continue to monitor .
--- NOTE | 2020-03-27 10:25 | NUR ---
RD ASSESSMENT & RECOMMENDATIONS SEE CARE ACTIVITY FOR COMPLETE ASSESSMENT DAILY ESTIMATED NEEDS: Needs based on cardiac, pulmonary 54.7kg 25-35 kcals/kg 3127-4318 total kcals 1-1.5 g protein/kg 55-82 g total protein Fluid per MD, on lasix mL/kg 1.5L/day per MD total fluid mLs NUTRITION DIAGNOSIS: Increased kcal needs r/t wasting and underweight status as evidenced by pt w/ mild to moderate generalized wasting, pt is 88% of [place] Body Weight. CURRENT DIET: Cardiac PO DIET RECOMMENDATIONS: LOW NA DIET / liberalized from cardiac ADDITIONAL RECOMMENDATIONS: 1) Obtain a standing weight as able 2) Add snacks in b/w meals and HS snack to prevent am hypoglycemia 3) Add Glucerna 1 tetra qdaily 4) On lasix, check lytes daily + daily calibrated bed scale wts 5) Monitor BG and need for CCHO diet (Current BG 120's) rec Bedside BG testing + sliding scale
--- NOTE | 2020-03-27 11:34 | NUR ---
NURSE NOTES: Dr Camara responded to use patient's right hand IV line temporarily for dobutamine drip while waiting for the right femoral triple lumen catheter to be checked. Addendum: 03/27/20 at 1144 by CLAIR Woodall RN Additional info. Dr Camara ordered and carried out to titrate down dobutamine drip from 3 mcg/kg/min to 2mcg/kg/ min. Awaiting for pharmacy verification. pt is stable, alert and awake. No concerns as of this moment.
[2020-03-27] MEDS ORDERED: DOBUTamine 250mg/250ml Premix 250 ML IV SCH (11:45)
--- NOTE | 2020-03-27 11:47 | NUR ---
CASE MANAGEMENT: REVIEW SI: CHF EXACERBATION . A-FIB . HEMATURIA . PITTING EDEMA in EXTREMITIES T 97.1 HR 64 RR 20 BP 98/59 SAT 99% NC/2L WBC 3.4 H/H 9.6/29.1 BUN 35 CR 1.7 ALK PHOS 205 IS: VENOFER IV QHS DOBUTAMINE IV Q24HR LASIX 40MG IV QD PRBC TRANSFUSION PRN DAILY WEIGHT STRICT I&O [facility] CATH PLACEMENT STEP DOWN UNIT STATUS DCP: PATIENT IS FROM HOME
[2020-03-27 12:00] VITALS: BP 109/61
--- NOTE | 2020-03-27 12:52 | Cardiac Electrophysiology PN ---
Assessment/Plan Assessment/Plan 1. Exacerbation of congestive heart failure in this patient with severe cardiomyopathy EF 10-15%. On Lasix 40 mg IV daily Avoid PRAVEEN inhibitor and angiotensin-receptor blockers in view of acute renal failure and creatinine of more than 3. DC Dobutamine Awaiting records from [facility] 2. Atrial fibrillation. The rate is currently controlled. It actually goes in the 30s, off any AV-regis blocking agents. Off anticoagulation for Hb 8 and bleeding from RFV central line 3. Hypertension. Continue current medical therapy. 4. Renal failure, creatinine of 3.3. On dobutamine drip Cr improved to 1.7. FU Dr Tucker 5. Anemia, hemoglobin of 8.3. S/P PRBC one unit DW RN Subjective Subjective In SDU on Dobutamine drip 3 mc in atrial fib with frequent NSVT. Still waiting records from [facility] Objective Last 24 Hour Vital Signs Date Time Temp Pulse Resp B/P (MAP) Pulse Ox O2 Delivery O2 Flow Rate FiO2 03/27/20 12:17 109/61 03/27/20 12:00 2.0 03/27/20 12:00 Nasal Cannula 2.0 03/27/20 12:00 97.2 117 20 109/61 (77) 99 03/27/20 11:37 83 03/27/20 08:00 Nasal Cannula 2.0 03/27/20 08:00 96.8 97 20 98/59 (72) 99 03/27/20 08:00 2.0 03/27/20 07:32 98 03/27/20 04:00 2.0 03/27/20 04:00 Nasal Cannula 2.0 03/27/20 04:00 97.9 87 20 116/65 (82) 99 03/27/20 03:34 92 03/27/20 00:00 2.0 03/27/20 00:00 64 03/27/20 00:00 97.1 67 20 100/57 (71) 100 03/27/20 00:00 Nasal Cannula 2.0 03/26/20 23:51 110/64 03/26/20 23:27 87 03/26/20 20:00 97.4 64 20 121/67 (85) 97 03/26/20 20:00 Nasal Cannula 2.0 03/26/20 16:15 97.9 83 20 110/64 (79) 100 03/26/20 16:00 2.0 03/26/20 16:00 Nasal Cannula 2.0 03/26/20 15:44 91 Intake and Output 03/26/20 03/27/20 19:00 07:00 Intake Total 1036.193 ml 165.704 ml Output Total 950 ml Balance 1036.193 ml -784.296 ml Intake Oral 700 ml IV Total 336.193 ml 165.704 ml Output Urine Total 950 ml # Voids 4 Laboratory Tests Test 03/27/20 06:40 White Blood Count 3.4 K/UL (4.8-10.8) L Red Blood Count 3.68 M/UL (4.70-6.10) L Hemoglobin 9.6 G/DL (14.2-18.0) L Hematocrit 29.1 % (42.0-52.0) L Mean Corpuscular Volume 79 FL (80-99) L Mean Corpuscular Hemoglobin 25.9 PG (27.0-31.0) L Mean Corpuscular Hemoglobin Concent 32.9 G/DL (32.0-36.0) Red Cell Distribution Width 18.8 % (11.6-14.8) H Platelet Count 237 K/UL (150-450) Mean Platelet Volume 6.3 FL (6.5-10.1) L Neutrophils (%) (Auto) % (45.0-75.0) Lymphocytes (%) (Auto) % (20.0-45.0) Monocytes (%) (Auto) % (1.0-10.0) Eosinophils (%) (Auto) % (0.0-3.0) Basophils (%) (Auto) % (0.0-2.0) Differential Total Cells Counted 100 Neutrophils % (Manual) 72 % (45-75) Lymphocytes % (Manual) 15 % (20-45) L Monocytes % (Manual) 10 % (1-10) Eosinophils % (Manual) 2 % (0-3) Basophils % (Manual) 1 % (0-2) Band Neutrophils 0 % (0-8) Platelet Estimate Adequate Platelet Morphology Normal Hypochromasia 2+ Anisocytosis 2+ Microcytosis 1+ Sodium Level 138 MMOL/L (136-145) Potassium Level 3.8 MMOL/L (3.5-5.1) Chloride Level 99 MMOL/L (98-107) Carbon Dioxide Level 33 MMOL/L (21-32) H Anion Gap 6 mmol/L (5-15) Blood Urea Nitrogen 35 mg/dL (7-18) H Creatinine 1.7 MG/DL (0.55-1.30) H Estimat Glomerular Filtration Rate 40.9 mL/min (>60) Glucose Level 128 MG/DL (74-106) H Calcium Level 9.2 MG/DL (8.5-10.1) Phosphorus Level 3.2 MG/DL (2.5-4.9) Magnesium Level 2.2 MG/DL (1.8-2.4) Total Bilirubin 1.6 MG/DL (0.2-1.0) H Direct Bilirubin 1.0 MG/DL (0.0-0.3) H Aspartate Amino Transf (AST/SGOT) 31 U/L (15-37) Alanine Aminotransferase (ALT/SGPT) 46 U/L (12-78) Alkaline Phosphatase 205 U/L (46-116) H Total Protein 7.9 G/DL (6.4-8.2) Albumin 3.2 G/DL (3.4-5.0) L Globulin 4.7 g/dL Albumin/Globulin Ratio 0.7 (1.0-2.7) L Objective HEAD AND NECK: Positive JVD. LUNGS: Decreased breath sounds. CARDIOVASCULAR: Shows irregular S1 and S2 with no gallop or murmur. ABDOMEN: Soft. EXTREMITIES: 1+ pitting edema.Right groin central line oozing Jovi Luther MD Mar 27, 2020 12:52
--- NOTE | 2020-03-27 13:14 | NUR ---
NURSE NOTES: 1200: Dr Camara seen the patient with orders 1300: Dr Castelan came by and seen the patient. Removed right femoral tripel lumen catheter. No bleeding or any signs and symptoms of infection pt tolerated the procedure
--- NOTE | 2020-03-27 13:48 | Surgery Progress Note ---
Surgery Progress Note Subjective Procedure Performed Right femoral central venous catheter insertion Additional Comments no acute events resumed lovenox labs stable comfortable no complaints card stopped dop Objective Last 24 Hour Vital Signs Date Time Temp Pulse Resp B/P (MAP) Pulse Ox O2 Delivery O2 Flow Rate FiO2 03/27/20 12:17 109/61 03/27/20 12:00 2.0 03/27/20 12:00 Nasal Cannula 2.0 03/27/20 12:00 97.2 117 20 109/61 (77) 99 03/27/20 11:37 83 03/27/20 08:00 Nasal Cannula 2.0 03/27/20 08:00 96.8 97 20 98/59 (72) 99 03/27/20 08:00 2.0 03/27/20 07:32 98 03/27/20 04:00 2.0 03/27/20 04:00 Nasal Cannula 2.0 03/27/20 04:00 97.9 87 20 116/65 (82) 99 03/27/20 03:34 92 03/27/20 00:00 2.0 03/27/20 00:00 64 03/27/20 00:00 97.1 67 20 100/57 (71) 100 03/27/20 00:00 Nasal Cannula 2.0 03/26/20 23:51 110/64 03/26/20 23:27 87 03/26/20 20:00 97.4 64 20 121/67 (85) 97 03/26/20 20:00 Nasal Cannula 2.0 03/26/20 16:15 97.9 83 20 110/64 (79) 100 03/26/20 16:00 2.0 03/26/20 16:00 Nasal Cannula 2.0 03/26/20 15:44 91 I&O Intake and Output 03/26/20 03/27/20 19:00 07:00 Intake Total 1036.193 ml 165.704 ml Output Total 950 ml Balance 1036.193 ml -784.296 ml Intake Oral 700 ml IV Total 336.193 ml 165.704 ml Output Urine Total 950 ml # Voids 4 Dressing: saturated Wound: clean Cardiovascular: RSR Respiratory: clear Abdomen: soft, non-tender, present bowel sounds Extremities: no tenderness, no cyanosis Laboratory Tests Test 03/27/20 06:40 White Blood Count 3.4 K/UL (4.8-10.8) L Red Blood Count 3.68 M/UL (4.70-6.10) L Hemoglobin 9.6 G/DL (14.2-18.0) L Hematocrit 29.1 % (42.0-52.0) L Mean Corpuscular Volume 79 FL (80-99) L Mean Corpuscular Hemoglobin 25.9 PG (27.0-31.0) L Mean Corpuscular Hemoglobin Concent 32.9 G/DL (32.0-36.0) Red Cell Distribution Width 18.8 % (11.6-14.8) H Platelet Count 237 K/UL (150-450) Mean Platelet Volume 6.3 FL (6.5-10.1) L Neutrophils (%) (Auto) % (45.0-75.0) Lymphocytes (%) (Auto) % (20.0-45.0) Monocytes (%) (Auto) % (1.0-10.0) Eosinophils (%) (Auto) % (0.0-3.0) Basophils (%) (Auto) % (0.0-2.0) Differential Total Cells Counted 100 Neutrophils % (Manual) 72 % (45-75) Lymphocytes % (Manual) 15 % (20-45) L Monocytes % (Manual) 10 % (1-10) Eosinophils % (Manual) 2 % (0-3) Basophils % (Manual) 1 % (0-2) Band Neutrophils 0 % (0-8) Platelet Estimate Adequate Platelet Morphology Normal Hypochromasia 2+ Anisocytosis 2+ Microcytosis 1+ Sodium Level 138 MMOL/L (136-145) Potassium Level 3.8 MMOL/L (3.5-5.1) Chloride Level 99 MMOL/L (98-107) Carbon Dioxide Level 33 MMOL/L (21-32) H Anion Gap 6 mmol/L (5-15) Blood Urea Nitrogen 35 mg/dL (7-18) H Creatinine 1.7 MG/DL (0.55-1.30) H Estimat Glomerular Filtration Rate 40.9 mL/min (>60) Glucose Level 128 MG/DL (74-106) H Calcium Level 9.2 MG/DL (8.5-10.1) Phosphorus Level 3.2 MG/DL (2.5-4.9) Magnesium Level 2.2 MG/DL (1.8-2.4) Total Bilirubin 1.6 MG/DL (0.2-1.0) H Direct Bilirubin 1.0 MG/DL (0.0-0.3) H Aspartate Amino Transf (AST/SGOT) 31 U/L (15-37) Alanine Aminotransferase (ALT/SGPT) 46 U/L (12-78) Alkaline Phosphatase 205 U/L (46-116) H Total Protein 7.9 G/DL (6.4-8.2) Albumin 3.2 G/DL (3.4-5.0) L Globulin 4.7 g/dL Albumin/Globulin Ratio 0.7 (1.0-2.7) L Plan Problems: (1) Renal insufficiency Assessment & Plan: 64-year-old male presented with shortness of breath chest pain currently admitted for medical care and management identified to have renal insufficiency, hypotension, abnormal labs. line removed (2) Abnormal LFTs Assessment & Plan: UGallbladder nondistended. It contains a gallstone. Gallbladder wall is somewhat thickened, measuring up to 4 mm thick. Sonographic Rosas's sign is negative. Common bile duct measures 3 mm in diameter. No intrahepatic biliary ductal dilatation. Liver demonstrates normal echogenicity, no focal abnormality. Portal vein and hepatic veins are patent. Pancreas is unremarkable. Spleen is unremarkable. Left kidney measures 10.1 cm in length. Right kidney measures 11.6 cm length. Both kidneys demonstrate normal echogenicity. There is no hydronephrosis. No focal abnormality. There is, however, trace right perinephric fluid. . The prostate is not enlarged. The bladder is unremarkable.. Non-aneurysmal abdominal aorta . There is a small left pleural effusion. The inferior vena cava and hepatic veins are somewhat distended Impression: Cholelithiasis. Gallbladder wall thickening, may in part be exaggerated by lack of distention or could be due to edema of systemic origin. However, the possibility of acute cholecystitis should also be considered. Consider hepatobiliary nuclear scan if there is high clinical suspicion. no abd pain us noted exam clinically table labs okay can follow outpatient no acute intervention necessary (3) Hypotension Assessment & Plan: Patient with hypotension requiring pressors. Eval myself at the bedside central venous catheter indicated recommended Discussed with medical team nursing staff and care plan with patient Please see procedure note we will follow with recommendations line removed 03/27 Chuck Castelan Mar 27, 2020 13:48
--- NOTE | 2020-03-27 13:51 | Operative Note - PDOC ---
Operative Note Operative Note Date of Operation/Procedure: Mar 27, 2020 Pre-op Diagnosis: Hypotension Procedure: Right femoral central venous catheter removed Post-op Diagnosis: same as pre-op Surgeon: Chuck Castelan MD Specimen: none Complications: none Condition: unstable Estimated Blood Loss: minimal Drains: none Implant(s) used?: No Indications for Procedure see notes off cardio med line can be d/c now Description of Procedure site cleaned dressings removed sutures removed right fem line removed pressure held until hemostasis dressings applied Chuck Castelan Mar 27, 2020 13:51
--- NOTE | 2020-03-27 14:04 | Nephrology Progress Note ---
Assessment/Plan Plan #AALIYAH on CKD- ?--unclear baseline - cardiorenal syndrome 1 #acute on chronic combined systolic and diastolic CHF #afib- rate controlled #anemia- of CKD? #elevated liver enzymes #h/o HTN #COPD #tobacco use disorder - renal US no signficant findings - increase lasix 40 IV BID - follow echo-. EF < 15% - dobutamin drip per cardiology - plan to dc today - monitor UOP- strict- place bansal - daily weights - monitor and replete lytes - - continue asa - prbc transfusion prn - target hemoglobin > 7.5 - check iron panel and ferritin- adequate - consider epo time spent 72 min- > 50% on care coordination and counselling Subjective ROS Limited/Unobtainable: No Subjective Cr down to 1.7 UOP 950cc plan to DC dobutamine increase lasix 40 Iv BID hemoglobin stable Objective Objective Last 24 Hour Vital Signs Date Time Temp Pulse Resp B/P (MAP) Pulse Ox O2 Delivery O2 Flow Rate FiO2 03/27/20 12:17 109/61 03/27/20 12:00 2.0 03/27/20 12:00 Nasal Cannula 2.0 03/27/20 12:00 97.2 117 20 109/61 (77) 99 03/27/20 11:37 83 03/27/20 08:00 Nasal Cannula 2.0 03/27/20 08:00 96.8 97 20 98/59 (72) 99 03/27/20 08:00 2.0 03/27/20 07:32 98 03/27/20 04:00 2.0 03/27/20 04:00 Nasal Cannula 2.0 03/27/20 04:00 97.9 87 20 116/65 (82) 99 03/27/20 03:34 92 03/27/20 00:00 2.0 03/27/20 00:00 64 03/27/20 00:00 97.1 67 20 100/57 (71) 100 03/27/20 00:00 Nasal Cannula 2.0 03/26/20 23:51 110/64 03/26/20 23:27 87 03/26/20 20:00 97.4 64 20 121/67 (85) 97 03/26/20 20:00 Nasal Cannula 2.0 03/26/20 16:15 97.9 83 20 110/64 (79) 100 03/26/20 16:00 2.0 03/26/20 16:00 Nasal Cannula 2.0 03/26/20 15:44 91 Intake and Output 03/26/20 03/27/20 19:00 07:00 Intake Total 1036.193 ml 165.704 ml Output Total 950 ml Balance 1036.193 ml -784.296 ml Intake Oral 700 ml IV Total 336.193 ml 165.704 ml Output Urine Total 950 ml # Voids 4 Laboratory Tests 03/27/20 06:40: White Blood Count 3.4L, Red Blood Count 3.68L, Hemoglobin 9.6L, Hematocrit 29.1L , Mean Corpuscular Volume 79L, Mean Corpuscular Hemoglobin 25.9L, Mean Corpuscular Hemoglobin Concent 32.9, Red Cell Distribution Width 18.8H, Platelet Count 237, Mean Platelet Volume 6.3L, Neutrophils (%) (Auto) , Lymphocytes (%) (Auto) , Monocytes (%) (Auto) , Eosinophils (%) (Auto) , Basophils (%) (Auto) , Differential Total Cells Counted 100, Neutrophils % ( Manual) 72, Lymphocytes % (Manual) 15L, Monocytes % (Manual) 10, Eosinophils % ( Manual) 2, Basophils % (Manual) 1, Band Neutrophils 0, Platelet Estimate Adequate, Platelet Morphology Normal, Hypochromasia 2+, Anisocytosis 2+, Microcytosis 1+, Sodium Level 138, Potassium Level 3.8, Chloride Level 99, Carbon Dioxide Level 33H, Anion Gap 6, Blood Urea Nitrogen 35H, Creatinine 1.7H , Estimat Glomerular Filtration Rate 40.9, Glucose Level 128H, Calcium Level 9.2 , Phosphorus Level 3.2, Magnesium Level 2.2, Total Bilirubin 1.6H, Direct Bilirubin 1.0H, Aspartate Amino Transf (AST/SGOT) 31, Alanine Aminotransferase ( ALT/SGPT) 46, Alkaline Phosphatase 205H, Total Protein 7.9, Albumin 3.2L, Globulin 4.7, Albumin/Globulin Ratio 0.7L Height (Feet): 5 Height (Inches): 5.00 Weight (Pounds): 121 Objective General Appearance: no apparent distress Lines, tubes and drains: peripheral HEENT: normocephalic Neck: non-tender Respiratory/Chest: chest wall non-tender, crackles/rales Cardiovascular/Chest: normal peripheral pulses, normal rate, regularly irregular Abdomen: normal bowel sounds, non tender, soft Extremities: moderate edema Neurologic: alert, oriented x 3, responsive Gini Spann M.D. Mar 27, 2020 14:03
[2020-03-27 16:00] VITALS: BP 98/49
--- NOTE | 2020-03-27 19:20 | NUR ---
HAND-OFF: Report given to ZENA Baron. Pt stable and asleep. needs were attended.
--- NOTE | 2020-03-27 19:30 | NUR ---
NURSE NOTES: Report received from ZENA SELF. Observed pt lying in the bed. A/O x4. Afib on classroom monitor with HR of 100s noted. On 2L NC with no sob noted. Denies any pain at this time. IV on L H, TKO, asymptomatic. Bed in the lowest position. Side rails up x3. Call light within reach. Will continue to monitor.
[2020-03-27 20:00] VITALS: BP_SYST 100; BP_SYST 150; BP_DIAS 56; BP_DIAS 73
[2020-03-27] MEDS: Iron Sucrose 100 MG in NS 55 ML IV SCH (21:25)
[2020-03-28] VITALS: BP_SYST 140; BP_SYST 90; BP_DIAS 51; BP_DIAS 63
--- NOTE | 2020-03-28 02:00 | NUR ---
NURSE NOTES: Pt sleeping in the bed. No acute distress noted at this time. Will continue to monitor.
[2020-03-28 04:00] VITALS: BP 90/60
[2020-03-28 05:51] LABS: BASOPHILS % (AUTO) 1.6 % (0.0-2.0); EOSINOPHILS % (AUTO) 1.3 % (0.0-3.0); HEMATOCRIT 30.3 % (42.0-52.0); HEMOGLOBIN 9.9 G/DL (14.2-18.0); LYMPHOCYTES % (AUTO) 19.2 % (20.0-45.0); MEAN CORPUSCULAR VOLUME 79 FL (80-99); PLATELET COUNT 252 K/UL (150-450); RED BLOOD COUNT 3.83 M/UL (4.70-6.10); RED CELL DISTRIBUTION WIDTH 19.4 % (11.6-14.8); WHITE BLOOD COUNT 4.2 K/UL (4.8-10.8)
[2020-03-28 06:47] LABS: ALANINE AMINOTRANSFERASE 28 U/L (12-78); ALBUMIN 3.2 G/DL (3.4-5.0); ALBUMIN/GLOBULIN RATIO 0.7 (1.0-2.7); ALKALINE PHOSPHATASE 196 U/L (46-116); ANION GAP 6 mmol/L (5-15); ASPARTATE AMINO TRANSFERASE 24 U/L (15-37); BILIRUBIN,TOTAL 1.3 MG/DL (0.2-1.0); BLOOD UREA NITROGEN 38 mg/dL (7-18); CALCIUM 9.3 MG/DL (8.5-10.1); CARBON DIOXIDE 31 MMOL/L (21-32); CHLORIDE 98 MMOL/L (98-107); CREATININE 1.6 MG/DL (0.55-1.30); POTASSIUM 3.7 MMOL/L (3.5-5.1); SODIUM 134 MMOL/L (136-145)
[2020-03-28 06:56] LABS: BILIRUBIN,DIRECT 0.8 MG/DL (0.0-0.3)
--- NOTE | 2020-03-28 07:23 | NUR ---
HAND-OFF: Report given to ZENA Roman. No acute distress noted at this time.
--- NOTE | 2020-03-28 07:27 | NUR ---
NURSE NOTES: Received report ZENA Carranza,patient awake eating breakfast,no distress,no chest pain,reminded fluid restriction,1.5 L per day,acknowledge,verbalize understanding,sitting position,room air,reminded to save urine all times for I/O,on lasix,verbalize understanding,verbalize constipation for 6 days will give miralax
[2020-03-28 08:00] VITALS: BP 105/60
[2020-03-28] MEDS: Aspirin Baby 81mg ORAL SCH (08:32)
[2020-03-28] MEDS: Docusate 100mg cap ORAL SCH ×2 (08:32→21:12)
[2020-03-28] MEDS: Enoxaparin 60mg Inj SUBQ SCH (08:34)
--- NOTE | 2020-03-28 11:16 | Nephrology Progress Note ---
Assessment/Plan Plan #AALIYAH on CKD- ?--unclear baseline - cardiorenal syndrome 1 #acute on chronic combined systolic and diastolic CHF #afib- rate controlled #anemia- of CKD? #elevated liver enzymes #h/o HTN #COPD #tobacco use disorder - renal US no signficant findings - increased lasix 40 IV BID - follow echo-. EF < 15% - monitor weights - monitor mag and K closely - monitor UOP- stric - daily weights - monitor and replete lytes - continue asa - prbc transfusion prn - target hemoglobin > 7.5 - check iron panel and ferritin- adequate - consider epo time spent 46 min- > 50% on care coordination and counselling Subjective ROS Limited/Unobtainable: No Constitutional: Denies: no symptoms, chills, diaphoresis, fever, malaise, weakness, other HEENT: Denies: no symptoms, eye pain, blurred vision, tearing, double vision, ear pain, ear discharge, nose pain, nose congestion, throat pain, throat swelling, mouth pain, mouth swelling, other Genitourinary: Denies: no symptoms, burning, discharge, frequency, flank pain, hematuria, incontinence, pain, urgency, other Neurologic/Psychiatric: Denies: no symptoms, anxiety, depressed, emotional problems, headache, numbness, paresthesia, pre-existing deficit, seizure, tingling, tremors, weakness, other Subjective Breathing improving Cr down to 1.6 UOP 500cc documneted plan to DC dobutamine increase lasix 40 Iv BID hemoglobin stable Objective Objective Last 24 Hour Vital Signs Date Time Temp Pulse Resp B/P (MAP) Pulse Ox O2 Delivery O2 Flow Rate FiO2 03/28/20 08:05 Nasal Cannula 2.0 Room Air Room Air Room Air 03/28/20 08:00 97.7 91 20 105/60 (75) 100 03/28/20 07:49 95 03/28/20 04:00 2.0 03/28/20 04:00 Nasal Cannula 2.0 03/28/20 04:00 98.1 89 24 90/60 (70) 96 03/28/20 03:36 104 03/28/20 00:00 Nasal Cannula 2.0 03/28/20 00:00 104 03/28/20 00:00 98.1 81 24 90/51 (64) 100 03/27/20 20:00 Nasal Cannula 2.0 03/27/20 20:00 2.0 03/27/20 20:00 97.7 90 20 100/56 (71) 99 03/27/20 19:04 93 03/27/20 16:00 Nasal Cannula 2.0 03/27/20 16:00 2.0 03/27/20 16:00 97.3 118 20 98/49 (65) 99 03/27/20 15:18 92 03/27/20 12:17 109/61 03/27/20 12:00 2.0 03/27/20 12:00 Nasal Cannula 2.0 03/27/20 12:00 97.2 117 20 109/61 (77) 99 03/27/20 11:37 83 Intake and Output 03/27/20 03/28/20 19:00 07:00 Intake Total 557.273 ml 25 ml Output Total 500 ml Balance 557.273 ml -475 ml Intake Oral 500 ml 25 ml IV Total 57.273 ml Output Urine Total 500 ml # Voids 5 2 Laboratory Tests 03/28/20 04:08: White Blood Count 4.2L, Red Blood Count 3.83L, Hemoglobin 9.9L, Hematocrit 30.3L , Mean Corpuscular Volume 79L, Mean Corpuscular Hemoglobin 25.9L, Mean Corpuscular Hemoglobin Concent 32.6, Red Cell Distribution Width 19.4H, Platelet Count 252, Mean Platelet Volume 6.2L, Neutrophils (%) (Auto) 66.0, Lymphocytes (%) (Auto) 19.2L, Monocytes (%) (Auto) 12.0H, Eosinophils (%) (Auto ) 1.3, Basophils (%) (Auto) 1.6, Sodium Level [Pending], Potassium Level [ Pending], Chloride Level [Pending], Carbon Dioxide Level [Pending], Anion Gap 6 , Blood Urea Nitrogen [Pending], Creatinine [Pending], Estimat Glomerular Filtration Rate [Pending], Glucose Level [Pending], Calcium Level [Pending], Phosphorus Level 3.3, Total Bilirubin 1.3H, Direct Bilirubin 0.8H, Aspartate Amino Transf (AST/SGOT) 24, Alanine Aminotransferase (ALT/SGPT) 28, Alkaline Phosphatase 196H, Total Protein 7.7, Albumin 3.2L, Globulin 4.5, Albumin/ Globulin Ratio 0.7L Height (Feet): 5 Height (Inches): 5.00 Weight (Pounds): 115 Objective General Appearance: no apparent distress Lines, tubes and drains: peripheral HEENT: normocephalic Neck: non-tender Respiratory/Chest: chest wall non-tender, crackles/rales Cardiovascular/Chest: normal peripheral pulses, normal rate, regularly irregular Abdomen: normal bowel sounds, non tender, soft Extremities: moderate edema Neurologic: alert, oriented x 3, responsive Gini Spann M.D. Mar 28, 2020 11:16
--- NOTE | 2020-03-28 11:54 | General Progress Note ---
Assessment/Plan Assessment/Plan: 64 yo M w/ MMP PMHx A fib, CHF, Smoker w/ possible COPD presented t the ED via EMS for several days of CP and SOB. Pt reports 1 week of progressive chest heaviness and pain. Pain is described as moderate, constant w/ waxing and waning , not worse w/ exertion. Also reports bl le edema and dry cough. #Chest pain, atypical #Acute decompensated CHF #Acute on Chronic systolic heart failure, EF 15% #A fib, rate controlled #HTN - surveillance system monitor - 03/24: s/p central line placement by gen sx - TTE -> EF < 15% - trend chem, goal k > 4, mag > 2 - supportive care, pain control - hydralazine, isordil - hold coreg given bradycardia - s/p dobutamine ggt - avoid PRAVEEN/ARB due to acute renal failure - Records from [facility] w/ nonischemic cardiomyopathy presumably EtOH, last cardiac cath 02/07/2018 with no CAD - d/w cardiology: cont. lasix 40 mg IV BID, start eliquis 2.5 BID #Acute anemia, suspect blood loss on AC - repeat CBC this am closer to baseline from admit - 03/24: s/p 1 U PRBC - goal Hgb >7.5, Transfuse for Hb < 7.5 - Heme consulted, OK to start lovenox BID #COPD, suspected #Current smoker #Pleural effusion, due to CHF - nebs prn sob/wheeze - nicotine patch offered, refused - ctm resp status and effusion - sup o2 as needed #AALIYAH, suspect cardiorenal syndrome (baseline cr unknown) - Cr 3.3 on admission, downtrending - renal US no significant findings - diuresis as above - avoid nephro toxic meds - nephro following #Hyperkalemia - resolved - ctm #Transaminitis, AST elevation - resolved #Hyperbilirubinemia #Cholelithiasis #H/o ETOH Cirrhosis - suspect due to hepatic congestion - ABD us w/ cholelithiasis, GB wall thickening, no CBD dilation noted - AST elevation now resolved - negative tanner's sign, no abd pain at this time - ctm - h/o etoh cirrhosis per chart review [facility] [email or web address]] #Constipation - colace BID - PRN miralax, MOM, fleet enema #FEN/PPx - 1500cc fluid restriction - trend chem, replete lytes as needed - cardiac diet - DVT ppx: lovenox FULL CODE I spent 35 min on this case and 20 min was dedicated to counseling and care coordination including discussion w/RN. I spent an additional 31 mins w/discussing case w/cardiology and review of previous records. Time of this note may not reflect the time of the clinical encounter. Subjective Allergies: Coded Allergies: No Known Allergies (Unverified , 03/23/20) Subjective F/u acute on chronic CHF exacerbation. Cr down trending. Right femoral central line removed 03/27. Denies CP, SOB, abd pain or right groin pain. 12 pt ros neg except as above Objective Last 24 Hour Vital Signs Date Time Temp Pulse Resp B/P (MAP) Pulse Ox O2 Delivery O2 Flow Rate FiO2 03/28/20 08:05 Nasal Cannula 2.0 Room Air Room Air Room Air 03/28/20 08:00 97.7 91 20 105/60 (75) 100 03/28/20 07:49 95 03/28/20 04:00 2.0 03/28/20 04:00 Nasal Cannula 2.0 03/28/20 04:00 98.1 89 24 90/60 (70) 96 03/28/20 03:36 104 03/28/20 00:00 Nasal Cannula 2.0 03/28/20 00:00 104 03/28/20 00:00 98.1 81 24 90/51 (64) 100 03/27/20 20:00 Nasal Cannula 2.0 03/27/20 20:00 2.0 03/27/20 20:00 97.7 90 20 100/56 (71) 99 03/27/20 19:04 93 03/27/20 16:00 Nasal Cannula 2.0 03/27/20 16:00 2.0 03/27/20 16:00 97.3 118 20 98/49 (65) 99 03/27/20 15:18 92 03/27/20 12:17 109/61 03/27/20 12:00 2.0 03/27/20 12:00 Nasal Cannula 2.0 03/27/20 12:00 97.2 117 20 109/61 (77) 99 Intake and Output 03/27/20 03/28/20 19:00 07:00 Intake Total 557.273 ml 25 ml Output Total 500 ml Balance 557.273 ml -475 ml Intake Oral 500 ml 25 ml IV Total 57.273 ml Output Urine Total 500 ml # Voids 5 2 Laboratory Tests 03/28/20 04:08: White Blood Count 4.2L, Red Blood Count 3.83L, Hemoglobin 9.9L, Hematocrit 30.3L , Mean Corpuscular Volume 79L, Mean Corpuscular Hemoglobin 25.9L, Mean Corpuscular Hemoglobin Concent 32.6, Red Cell Distribution Width 19.4H, Platelet Count 252, Mean Platelet Volume 6.2L, Neutrophils (%) (Auto) 66.0, Lymphocytes (%) (Auto) 19.2L, Monocytes (%) (Auto) 12.0H, Eosinophils (%) (Auto ) 1.3, Basophils (%) (Auto) 1.6, Sodium Level [Pending], Potassium Level [ Pending], Chloride Level [Pending], Carbon Dioxide Level [Pending], Anion Gap 6 , Blood Urea Nitrogen [Pending], Creatinine [Pending], Estimat Glomerular Filtration Rate [Pending], Glucose Level [Pending], Calcium Level [Pending], Phosphorus Level 3.3, Total Bilirubin 1.3H, Direct Bilirubin 0.8H, Aspartate Amino Transf (AST/SGOT) 24, Alanine Aminotransferase (ALT/SGPT) 28, Alkaline Phosphatase 196H, Total Protein 7.7, Albumin 3.2L, Globulin 4.5, Albumin/ Globulin Ratio 0.7L Height (Feet): 5 Height (Inches): 5.00 Weight (Pounds): 115 Objective General Appearance: WD/WN, no apparent distress, alert HEENT: normocephalic, atraumatic, PERRL, EOMI Neck: normal alignment, supple Respiratory/Chest: lungs clear, normal breath sounds, no respiratory distress, no accessory muscle use Cardiovascular/Chest: normal peripheral pulses, regularly rhythm, no gallop/ murmur, JVD Abdomen: normal bowel sounds, non tender, soft, negative tanner's sign Extremities: no edema, no bruising noted in right groin Laisha Lares M.D. Mar 28, 2020 11:54
[2020-03-28 12:00] VITALS: BP 93/56
--- NOTE | 2020-03-28 12:22 | Hematology/Onc Progress Note ---
Assessment/Plan Assessment/Plan Assessment and recs: # Hypercoagulable disorder with afib, has been seen by cards --> rate control with Dr. Luther --> start lovenox sq BID --> consider coumadin if hgb remains stable --> will karen Rn # Anemia of iron deificiency --> anemia panel has been reviewed --> iron iv has been started --> monitor for bleed --> hgb trend 9.9 # Leukopenia -- likely mulfifactorial, may be also dic --> meds noted --> consider hep and hiv panel-->NEG --> iamging as needed-->WNL --> on pressors for hypotension # COPD, suspected --> per pulm # Current smoker # Chest pain, atypical --> per Dr. Luther # Acute decompensated CHF --> diuresis per cards # A fib, rate controlled --> dobutamine, bumex, cards --> holding for now anticoag --> cards aware # Pleural effusion, due to CHF - nebs prn sob/wheeze - nicotine patch offered, refused - ctm resp status and effusion, may need throa - sup o2 as needed # AALIYAH, suspect cardiorenal syndrome (baseline cr unknown) --> per renal # Hyperkalemia - resolved # Transaminitis, AST elevation # Hyperbilirubinemia # PPx --> scds/lovenox Appreciate consultation and karen RN Subjective Cardiovascular: Denies: no symptoms, chest pain, edema, irregular heart rate, lightheadedness, palpitations, syncope, other Respiratory: Denies: no symptoms, cough, shortness of breath, SOB with excertion, SOB at rest, sputum, wheezing, other Neurologic/Psychiatric: Denies: no symptoms, anxiety, depressed, emotional problems, headache, numbness, paresthesia, pre-existing deficit, seizure, tingling, tremors, weakness, other Endocrine: Denies: no symptoms, excessive sweating, flushing, intolerance to cold, intolerance to heat, increased hunger, increased thirst, increased urine, unexplained weight gain, unexplained weight loss, other Hematologic/Lymphatic: Denies: no symptoms, anemia, easy bleeding, easy bruising, adenopathy, other Allergies: Coded Allergies: No Known Allergies (Unverified , 03/23/20) Subjective 03/27 on 2lnc, on dobutamine, awake and alert, no bleeding 03/28 getting lovenox id dosing, reviewed cards recs, labs noted Objective Objective Current Medications Medications (Trade) Dose Ordered Sig/Hunter Route PRN Reason Start Time Stop Time Status Last Admin Dose Admin Acetaminophen/ Hydrocodone Bitart (Maceo 5/325) 1 tab Q4H PRN ORAL Moderate Pain (Pain Scale 4-6) 03/24/20 11:30 03/30/20 11:29 03/24/20 22:05 Aspirin (ASA) 81 mg DAILY ORAL 03/24/20 09:00 05/07/20 08:59 03/28/20 08:32 Bisacodyl (Dulcolax) 10 mg HSPRN PRN RECTAL Constipation 03/27/20 08:00 06/25/20 07:59 Dextrose (Dextrose 50%) 25 ml Q30M PRN IV Hypoglycemia 03/24/20 08:15 06/21/20 04:14 Dextrose (Dextrose 50%) 50 ml Q30M PRN IV Hypoglycemia 03/24/20 08:15 06/21/20 04:14 Docusate Sodium (Colace) 100 mg EVERY 12 HOURS ORAL 03/24/20 09:00 04/22/20 08:59 03/28/20 08:32 Enoxaparin Sodium (Lovenox) 60 mg DAILY SUBQ 03/26/20 10:30 06/24/20 10:29 03/28/20 08:34 Furosemide (Lasix) 40 mg Q12HR IV 03/27/20 21:00 04/26/20 20:59 03/28/20 08:32 Hydromorphone HCl (Dilaudid) 2 mg Q4H PRN ORAL Severe Pain (Pain Scale 7-10) 03/24/20 08:30 03/30/20 08:29 Iron Sucrose 100 mg/Sodium Chloride 60 ml @ 240 mls/hr BEDTIME IV 03/26/20 21:00 03/30/20 21:14 03/27/20 21:25 Magnesium Hydroxide (Mom) 30 ml HSPRN PRN ORAL Constipation 03/27/20 08:00 04/26/20 07:59 Ondansetron HCl (Zofran) 4 mg Q6H PRN IVP Nausea & Vomiting 03/24/20 08:30 04/22/20 08:29 03/24/20 18:12 Polyethylene Glycol (Miralax) 17 gm HSPRN PRN ORAL Constipation 03/27/20 08:00 04/26/20 07:59 03/28/20 08:34 Last 24 Hour Vital Signs Date Time Temp Pulse Resp B/P (MAP) Pulse Ox O2 Delivery O2 Flow Rate FiO2 03/28/20 08:05 Nasal Cannula 2.0 Room Air Room Air Room Air 03/28/20 08:00 97.7 91 20 105/60 (75) 100 03/28/20 07:49 95 03/28/20 04:00 2.0 03/28/20 04:00 Nasal Cannula 2.0 03/28/20 04:00 98.1 89 24 90/60 (70) 96 03/28/20 03:36 104 03/28/20 00:00 Nasal Cannula 2.0 03/28/20 00:00 104 03/28/20 00:00 98.1 81 24 90/51 (64) 100 03/27/20 20:00 Nasal Cannula 2.0 03/27/20 20:00 2.0 03/27/20 20:00 97.7 90 20 100/56 (71) 99 03/27/20 19:04 93 03/27/20 16:00 Nasal Cannula 2.0 03/27/20 16:00 2.0 03/27/20 16:00 97.3 118 20 98/49 (65) 99 03/27/20 15:18 92 03/27/20 12:17 109/61 03/27/20 12:00 2.0 03/27/20 12:00 Nasal Cannula 2.0 03/27/20 12:00 97.2 117 20 109/61 (77) 99 03/27/20 11:37 83 03/27/20 08:00 Nasal Cannula 2.0 03/27/20 08:00 96.8 97 20 98/59 (72) 99 03/27/20 08:00 2.0 03/27/20 07:32 98 03/27/20 04:00 2.0 03/27/20 04:00 Nasal Cannula 2.0 03/27/20 04:00 97.9 87 20 116/65 (82) 99 03/27/20 03:34 92 03/27/20 00:00 2.0 03/27/20 00:00 64 03/27/20 00:00 97.1 67 20 100/57 (71) 100 03/27/20 00:00 Nasal Cannula 2.0 03/26/20 23:51 110/64 03/26/20 23:27 87 03/26/20 20:00 97.4 64 20 121/67 (85) 97 03/26/20 20:00 Nasal Cannula 2.0 03/26/20 16:15 97.9 83 20 110/64 (79) 100 03/26/20 16:00 2.0 03/26/20 16:00 Nasal Cannula 2.0 03/26/20 15:44 91 03/26/20 12:50 106/61 Intake and Output 03/27/20 03/28/20 19:00 07:00 Intake Total 557.273 ml 25 ml Output Total 500 ml Balance 557.273 ml -475 ml Intake Oral 500 ml 25 ml IV Total 57.273 ml Output Urine Total 500 ml # Voids 5 2 Labs Test 03/26/20 04:15 03/27/20 06:40 03/28/20 04:08 White Blood Count 4.4 K/UL (4.8-10.8) 3.4 K/UL (4.8-10.8) 4.2 K/UL (4.8-10.8) Red Blood Count 3.53 M/UL (4.70-6.10) 3.68 M/UL (4.70-6.10) 3.83 M/UL (4.70-6.10) Hemoglobin 9.1 G/DL (14.2-18.0) 9.6 G/DL (14.2-18.0) 9.9 G/DL (14.2-18.0) Hematocrit 28.0 % (42.0-52.0) 29.1 % (42.0-52.0) 30.3 % (42.0-52.0) Mean Corpuscular Volume 79 FL (80-99) 79 FL (80-99) 79 FL (80-99) Mean Corpuscular Hemoglobin 25.8 PG (27.0-31.0) 25.9 PG (27.0-31.0) 25.9 PG (27.0-31.0) Mean Corpuscular Hemoglobin Concent 32.5 G/DL (32.0-36.0) 32.9 G/DL (32.0-36.0) 32.6 G/DL (32.0-36.0) Red Cell Distribution Width 18.8 % (11.6-14.8) 18.8 % (11.6-14.8) 19.4 % (11.6-14.8) Platelet Count 225 K/UL (150-450) 237 K/UL (150-450) 252 K/UL (150-450) Mean Platelet Volume 6.7 FL (6.5-10.1) 6.3 FL (6.5-10.1) 6.2 FL (6.5-10.1) Neutrophils (%) (Auto) 72.7 % (45.0-75.0) % (45.0-75.0) 66.0 % (45.0-75.0) Lymphocytes (%) (Auto) 15.4 % (20.0-45.0) % (20.0-45.0) 19.2 % (20.0-45.0) Monocytes (%) (Auto) 10.3 % (1.0-10.0) % (1.0-10.0) 12.0 % (1.0-10.0) Eosinophils (%) (Auto) 0.8 % (0.0-3.0) % (0.0-3.0) 1.3 % (0.0-3.0) Basophils (%) (Auto) 0.8 % (0.0-2.0) % (0.0-2.0) 1.6 % (0.0-2.0) Sodium Level 137 MMOL/L (136-145) 138 MMOL/L (136-145) 134 MMOL/L (136-145) Potassium Level 3.9 MMOL/L (3.5-5.1) 3.8 MMOL/L (3.5-5.1) 3.7 MMOL/L (3.5-5.1) Chloride Level 98 MMOL/L (98-107) 99 MMOL/L (98-107) 98 MMOL/L (98-107) Carbon Dioxide Level 33 MMOL/L (21-32) 33 MMOL/L (21-32) 31 MMOL/L (21-32) Anion Gap 6 mmol/L (5-15) 6 mmol/L (5-15) 6 mmol/L (5-15) Blood Urea Nitrogen 40 mg/dL (7-18) 35 mg/dL (7-18) 38 mg/dL (7-18) Creatinine 2.0 MG/DL (0.55-1.30) 1.7 MG/DL (0.55-1.30) 1.6 MG/DL (0.55-1.30) Estimat Glomerular Filtration Rate 33.9 mL/min (>60) 40.9 mL/min (>60) 43.9 mL/min (>60) Glucose Level 123 MG/DL (74-106) 128 MG/DL (74-106) 126 MG/DL (74-106) Calcium Level 8.8 MG/DL (8.5-10.1) 9.2 MG/DL (8.5-10.1) 9.3 MG/DL (8.5-10.1) Magnesium Level 1.6 MG/DL (1.8-2.4) 2.2 MG/DL (1.8-2.4) Hepatitis A IgM Antibody Negative (Negative) Hepatitis B Surface Antigen Negative (Negative) Hepatitis B Core IgM Antibody Negative (Negative) Hepatitis C Antibody <0.1 s/co ratio HIV (1&2) Antibody Rapid Negative (NEGATIVE) Differential Total Cells Counted 100 Neutrophils % (Manual) 72 % (45-75) Lymphocytes % (Manual) 15 % (20-45) Monocytes % (Manual) 10 % (1-10) Eosinophils % (Manual) 2 % (0-3) Basophils % (Manual) 1 % (0-2) Band Neutrophils 0 % (0-8) Platelet Estimate Adequate Platelet Morphology Normal Hypochromasia 2+ Anisocytosis 2+ Microcytosis 1+ Phosphorus Level 3.2 MG/DL (2.5-4.9) 3.3 MG/DL (2.5-4.9) Total Bilirubin 1.6 MG/DL (0.2-1.0) 1.3 MG/DL (0.2-1.0) Direct Bilirubin 1.0 MG/DL (0.0-0.3) 0.8 MG/DL (0.0-0.3) Aspartate Amino Transf (AST/SGOT) 31 U/L (15-37) 24 U/L (15-37) Alanine Aminotransferase (ALT/SGPT) 46 U/L (12-78) 28 U/L (12-78) Alkaline Phosphatase 205 U/L (46-116) 196 U/L (46-116) Total Protein 7.9 G/DL (6.4-8.2) 7.7 G/DL (6.4-8.2) Albumin 3.2 G/DL (3.4-5.0) 3.2 G/DL (3.4-5.0) Globulin 4.7 g/dL 4.5 g/dL Albumin/Globulin Ratio 0.7 (1.0-2.7) 0.7 (1.0-2.7) Height (Feet): 5 Height (Inches): 5.00 Weight (Pounds): 115 Objective Vitals: reviewed, normal General: normal inspection, well appearing, no apparent distress, alert Head: atraumatic Heent: nc, at Resp: normal inspection, lungs clear, normal breath sounds Cardiovascular: regular rate, rhythm, no edema, JVD Gastrointestinal: normal inspection, normal bowel sounds, non tender, soft, no guarding, no hernia Msk: normal inspection, back normal, normal range of motion Neurologic: alert, motor strength/tone normal, 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
--- NOTE | 2020-03-28 13:19 | NUR ---
CASE MANAGEMENT: SI: CHF EXACERBATION . A-FIB . HEMATURIA . PITTING EDEMA in EXTREMITIES. 98.1 104 24 90/60 96% 2L NC NA 134 BUN 38 CR 1.6 T-BILI 1.3 D-BILI 0.8 ALK PHOS 196 ALB 3.2 IS;LASIX IV Q12 HRS IRON SUCROSE IV HS ASA PO QD LOVENOX SUBQ QD STEP DOWN UNIT STATUS DCP;FROM HOME
--- NOTE | 2020-03-28 13:44 | Cardiac Electrophysiology PN ---
Assessment/Plan Assessment/Plan 1. Exacerbation of congestive heart failure in this patient with severe cardiomyopathy EF 10-15% more than 2 years. On Lasix 40 mg IV bid. Avoid PRAVEEN inhibitor and angiotensin-receptor blockers in view of acute renal failure and creatinine of more than 3. Off Dobutamine Extensive records from [facility] reviewed.Per last DS 11/14/19, CMP is nonischemic presumably ETOH but patient denied ETOH use. Cardiac cath 02/07/2018 showed no CAD. Add hydralazine and Isordil if BP allows 2. Atrial fibrillation. The rate is currently controlled off any AV-regis blocking agents. Start Eliquis 2.5 bid 3. Hypertension. Continue current medical therapy. 4. Renal failure, creatinine of 3.3. On dobutamine drip Cr improved to 1.7. FU Dr Tucker 5. Anemia, hemoglobin of 8.3. S/P PRBC one unit 6. ETOH Cirrhosis DW RN Subjective Subjective In SDU off Dobutamine in atrial fib with frequent NSVT. Extensive records from [facility] were reviewed Objective Last 24 Hour Vital Signs Date Time Temp Pulse Resp B/P (MAP) Pulse Ox O2 Delivery O2 Flow Rate FiO2 03/28/20 12:00 101 03/28/20 08:05 Nasal Cannula 2.0 Room Air Room Air Room Air 03/28/20 08:00 97.7 91 20 105/60 (75) 100 03/28/20 07:49 95 03/28/20 04:00 2.0 03/28/20 04:00 Nasal Cannula 2.0 03/28/20 04:00 98.1 89 24 90/60 (70) 96 03/28/20 03:36 104 03/28/20 00:00 Nasal Cannula 2.0 03/28/20 00:00 104 03/28/20 00:00 98.1 81 24 90/51 (64) 100 03/27/20 20:00 Nasal Cannula 2.0 03/27/20 20:00 2.0 03/27/20 20:00 97.7 90 20 100/56 (71) 99 03/27/20 19:04 93 03/27/20 16:00 Nasal Cannula 2.0 03/27/20 16:00 2.0 03/27/20 16:00 97.3 118 20 98/49 (65) 99 03/27/20 15:18 92 Intake and Output 03/27/20 03/28/20 19:00 07:00 Intake Total 557.273 ml 25 ml Output Total 500 ml Balance 557.273 ml -475 ml Intake Oral 500 ml 25 ml IV Total 57.273 ml Output Urine Total 500 ml # Voids 5 2 Laboratory Tests Test 03/28/20 04:08 White Blood Count 4.2 K/UL (4.8-10.8) L Red Blood Count 3.83 M/UL (4.70-6.10) L Hemoglobin 9.9 G/DL (14.2-18.0) L Hematocrit 30.3 % (42.0-52.0) L Mean Corpuscular Volume 79 FL (80-99) L Mean Corpuscular Hemoglobin 25.9 PG (27.0-31.0) L Mean Corpuscular Hemoglobin Concent 32.6 G/DL (32.0-36.0) Red Cell Distribution Width 19.4 % (11.6-14.8) H Platelet Count 252 K/UL (150-450) Mean Platelet Volume 6.2 FL (6.5-10.1) L Neutrophils (%) (Auto) 66.0 % (45.0-75.0) Lymphocytes (%) (Auto) 19.2 % (20.0-45.0) L Monocytes (%) (Auto) 12.0 % (1.0-10.0) H Eosinophils (%) (Auto) 1.3 % (0.0-3.0) Basophils (%) (Auto) 1.6 % (0.0-2.0) Sodium Level Pending Potassium Level Pending Chloride Level Pending Carbon Dioxide Level Pending Anion Gap 6 mmol/L (5-15) Blood Urea Nitrogen Pending Creatinine Pending Estimat Glomerular Filtration Rate Pending Glucose Level Pending Calcium Level Pending Phosphorus Level 3.3 MG/DL (2.5-4.9) Total Bilirubin 1.3 MG/DL (0.2-1.0) H Direct Bilirubin 0.8 MG/DL (0.0-0.3) H Aspartate Amino Transf (AST/SGOT) 24 U/L (15-37) Alanine Aminotransferase (ALT/SGPT) 28 U/L (12-78) Alkaline Phosphatase 196 U/L (46-116) H Total Protein 7.7 G/DL (6.4-8.2) Albumin 3.2 G/DL (3.4-5.0) L Globulin 4.5 g/dL Albumin/Globulin Ratio 0.7 (1.0-2.7) L Objective HEAD AND NECK: Positive JVD. LUNGS: Decreased breath sounds. CARDIOVASCULAR: Shows irregular S1 and S2 with no gallop or murmur. ABDOMEN: Soft. EXTREMITIES: 1+ pitting edema.Right groin central line oozing Jovi Luther MD Mar 28, 2020 13:44
--- NOTE | 2020-03-28 14:32 | NUR ---
NURSE NOTES: apply ice pack left ear,swelling
--- NOTE | 2020-03-28 14:37 | NUR ---
NURSE NOTES: Dr. Lares and doctor Ashkan visited,patient stable,Dr. Lares noted swelling left ear noted few days ago ,with orders to put ice pack-done,Dr. Luther OK transfer to telemetry
--- NOTE | 2020-03-28 15:00 | NUR ---
NURSE NOTES: Assumed pt care,report received from Jessie Thurston RN.Pt sitting up on bed awake,alert in no distress denies any c/o pain or discomfort,SR on the monitor ,skin warm and dry with IV heplock to LAC and RH both sites intact,SR up x2 call sanchez within reach,bed lock in lowest position,will continue with plans of care.
[2020-03-28 16:00] VITALS: BP 101/56
--- NOTE | 2020-03-28 16:29 | Surgery Progress Note ---
Surgery Progress Note Subjective Procedure Performed Right femoral central venous catheter removed Symptoms: improved, tolerating diet, difficulty voiding, passing flatus Objective Last 24 Hour Vital Signs Date Time Temp Pulse Resp B/P (MAP) Pulse Ox O2 Delivery O2 Flow Rate FiO2 03/28/20 16:00 Nasal Cannula 2.0 Room Air Room Air Room Air 03/28/20 12:00 97.5 99 21 93/56 (68) 99 03/28/20 12:00 Nasal Cannula 2.0 Room Air Room Air Room Air 03/28/20 12:00 101 03/28/20 08:05 Nasal Cannula 2.0 Room Air Room Air Room Air 03/28/20 08:00 97.7 91 20 105/60 (75) 100 03/28/20 07:49 95 03/28/20 04:00 2.0 03/28/20 04:00 Nasal Cannula 2.0 03/28/20 04:00 98.1 89 24 90/60 (70) 96 03/28/20 03:36 104 03/28/20 00:00 Nasal Cannula 2.0 03/28/20 00:00 104 03/28/20 00:00 98.1 81 24 90/51 (64) 100 03/27/20 20:00 Nasal Cannula 2.0 03/27/20 20:00 2.0 03/27/20 20:00 97.7 90 20 100/56 (71) 99 03/27/20 19:04 93 I&O Intake and Output 03/27/20 03/28/20 19:00 07:00 Intake Total 557.273 ml 25 ml Output Total 500 ml Balance 557.273 ml -475 ml Intake Oral 500 ml 25 ml IV Total 57.273 ml Output Urine Total 500 ml # Voids 5 2 Dressing: dry Wound: clean Cardiovascular: RSR Respiratory: decreased breath sounds Abdomen: soft, non-tender, present bowel sounds Extremities: no edema, no tenderness, no cyanosis Laboratory Tests Test 03/28/20 04:08 White Blood Count 4.2 K/UL (4.8-10.8) L Red Blood Count 3.83 M/UL (4.70-6.10) L Hemoglobin 9.9 G/DL (14.2-18.0) L Hematocrit 30.3 % (42.0-52.0) L Mean Corpuscular Volume 79 FL (80-99) L Mean Corpuscular Hemoglobin 25.9 PG (27.0-31.0) L Mean Corpuscular Hemoglobin Concent 32.6 G/DL (32.0-36.0) Red Cell Distribution Width 19.4 % (11.6-14.8) H Platelet Count 252 K/UL (150-450) Mean Platelet Volume 6.2 FL (6.5-10.1) L Neutrophils (%) (Auto) 66.0 % (45.0-75.0) Lymphocytes (%) (Auto) 19.2 % (20.0-45.0) L Monocytes (%) (Auto) 12.0 % (1.0-10.0) H Eosinophils (%) (Auto) 1.3 % (0.0-3.0) Basophils (%) (Auto) 1.6 % (0.0-2.0) Sodium Level Pending Potassium Level Pending Chloride Level Pending Carbon Dioxide Level Pending Anion Gap 6 mmol/L (5-15) Blood Urea Nitrogen Pending Creatinine Pending Estimat Glomerular Filtration Rate Pending Glucose Level Pending Calcium Level Pending Phosphorus Level 3.3 MG/DL (2.5-4.9) Total Bilirubin 1.3 MG/DL (0.2-1.0) H Direct Bilirubin 0.8 MG/DL (0.0-0.3) H Aspartate Amino Transf (AST/SGOT) 24 U/L (15-37) Alanine Aminotransferase (ALT/SGPT) 28 U/L (12-78) Alkaline Phosphatase 196 U/L (46-116) H Total Protein 7.7 G/DL (6.4-8.2) Albumin 3.2 G/DL (3.4-5.0) L Globulin 4.5 g/dL Albumin/Globulin Ratio 0.7 (1.0-2.7) L Plan Problems: (1) Renal insufficiency Assessment & Plan: 64-year-old male presented with shortness of breath chest pain currently admitted for medical care and management identified to have renal insufficiency, hypotension, abnormal labs. line removed (2) Abnormal LFTs Assessment & Plan: UGallbladder nondistended. It contains a gallstone. Gallbladder wall is somewhat thickened, measuring up to 4 mm thick. Sonographic Rosas's sign is negative. Common bile duct measures 3 mm in diameter. No intrahepatic biliary ductal dilatation. Liver demonstrates normal echogenicity, no focal abnormality. Portal vein and hepatic veins are patent. Pancreas is unremarkable. Spleen is unremarkable. Left kidney measures 10.1 cm in length. Right kidney measures 11.6 cm length. Both kidneys demonstrate normal echogenicity. There is no hydronephrosis. No focal abnormality. There is, however, trace right perinephric fluid. . The prostate is not enlarged. The bladder is unremarkable.. Non-aneurysmal abdominal aorta . There is a small left pleural effusion. The inferior vena cava and hepatic veins are somewhat distended Impression: Cholelithiasis. Gallbladder wall thickening, may in part be exaggerated by lack of distention or could be due to edema of systemic origin. However, the possibility of acute cholecystitis should also be considered. Consider hepatobiliary nuclear scan if there is high clinical suspicion. no abd pain us noted exam clinically table labs okay can follow outpatient no acute intervention necessary (3) Hypotension Assessment & Plan: Patient with hypotension requiring pressors. Eval myself at the bedside central venous catheter indicated recommended Discussed with medical team nursing staff and care plan with patient Please see procedure note we will follow with recommendations line removed 03/27 Chuck Castelan Mar 28, 2020 16:29
--- NOTE | 2020-03-28 16:37 | NUR ---
NURSE NOTES: No BM today dulcolax given,up to chair with help,tolerated feels weak
--- NOTE | 2020-03-28 16:44 | NUR ---
NURSE NOTES: dark spots on back front scratch josh,itchy,skin care done lotion applied
--- NOTE | 2020-03-28 17:07 | NUR ---
NURSE NOTES: Up to restroom with standby assist,had good BM,felt slight short of breath,up to chair for dinner,bed linen changed
--- NOTE | 2020-03-28 19:21 | NUR ---
HAND-OFF: Report given to Pat Tatum RN.Pt resting in bed in no distress..
--- NOTE | 2020-03-28 19:25 | NUR ---
NURSE NOTES: Received pt from Zuri Goyal RN. will continue plan of care.
--- NOTE | 2020-03-28 19:40 | NUR ---
NURSE NOTES: pt observed resting in bed, watching television, AO X4, denies pain at this time. pt is on room air, tolerating well. saturation: 99%; no s/sx of respiratory distress noted. no acute cardiac distress noted. pt denies chest pain at this time. LAC 20 g and RH 20 g IV sites are patent and intact, asymptomatic. urinal at bedside. bed in lowest position and locked, siderails up X2, call light within reach. will continue to monitor.
[2020-03-28 20:00] VITALS: BP 110/61
[2020-03-28] MEDS: Iron Sucrose 100 MG in NS 55 ML IV SCH (21:11)
--- NOTE | 2020-03-28 21:15 | NUR ---
NURSE NOTES: all due meds given. no s/sx of distress noted. all needs attended to. pt reminded and encouraged to use call light. will continue to monitor.
[2020-03-29] VITALS: BP 90/55
[2020-03-29 04:00] VITALS: BP 102/53
[2020-03-29 05:30] LABS: EOSINOPHILS % (AUTO) 0.9 % (0.0-3.0); HEMATOCRIT 31.8 % (42.0-52.0); HEMOGLOBIN 10.4 G/DL (14.2-18.0); LYMPHOCYTES % (AUTO) 17.7 % (20.0-45.0); MEAN CORPUSCULAR VOLUME 80 FL (80-99); MONOCYTES % (AUTO) 10.2 % (1.0-10.0); NEUTROPHILS % (AUTO) 70.1 % (45.0-75.0); PLATELET COUNT 265 K/UL (150-450); WHITE BLOOD COUNT 5.5 K/UL (4.8-10.8)
[2020-03-29 05:51] LABS: PHOSPHORUS 3.2 MG/DL (2.5-4.9)
[2020-03-29 06:19] LABS: ALANINE AMINOTRANSFERASE 40 U/L (12-78); ALBUMIN 3.3 G/DL (3.4-5.0); ALBUMIN/GLOBULIN RATIO 0.7 (1.0-2.7); ALKALINE PHOSPHATASE 199 U/L (46-116); ANION GAP 9 mmol/L (5-15); ASPARTATE AMINO TRANSFERASE 27 U/L (15-37); BILIRUBIN,TOTAL 1.2 MG/DL (0.2-1.0); BLOOD UREA NITROGEN 34 mg/dL (7-18); CALCIUM 8.9 MG/DL (8.5-10.1); CARBON DIOXIDE 30 MMOL/L (21-32); CHLORIDE 99 MMOL/L (98-107); CREATININE 1.4 MG/DL (0.55-1.30); POTASSIUM 3.7 MMOL/L (3.5-5.1); SODIUM 138 MMOL/L (136-145)
[2020-03-29 06:24] LABS: BILIRUBIN,DIRECT 0.8 MG/DL (0.0-0.3)
--- NOTE | 2020-03-29 06:51 | Hematology/Onc Progress Note ---
Assessment/Plan Assessment/Plan Assessment and recs: # Hypercoagulable disorder with afib, has been seen by cards --> rate control with Dr. Luther --> start lovenox sq BID --> consider coumadin if hgb remains stable --> will karen Rn # Anemia of iron deificiency --> anemia panel has been reviewed --> iron iv has been started --> monitor for bleed --> hgb trend 9.9-->10.4 # Leukopenia -- likely mulfifactorial, may be also dic --> meds noted --> consider hep and hiv panel-->NEG --> iamging as needed-->WNL --> on pressors for hypotension # COPD, suspected --> per pulm # Current smoker --> currently discontinued # Chest pain, atypical --> per Dr. Luther # Acute decompensated CHF --> diuresis per cards # A fib, rate controlled --> dobutamine, bumex, cards --> holding for now anticoag --> cards aware # Pleural effusion, due to CHF --> sup o2 as needed # AALIYAH, suspect cardiorenal syndrome (baseline cr unknown) --> per renal # Hyperkalemia - resolved # Transaminitis, AST elevation # Hyperbilirubinemia # PPx --> scds/lovenox Appreciate consultation and karen FREITAS Subjective HEENT: Denies: no symptoms, eye pain, blurred vision, tearing, double vision, ear pain, ear discharge, nose pain, nose congestion, throat pain, throat swelling, mouth pain, mouth swelling, other Cardiovascular: Denies: no symptoms, chest pain, edema, irregular heart rate, lightheadedness, palpitations, syncope, other Respiratory: Denies: no symptoms, cough, shortness of breath, SOB with excertion, SOB at rest, sputum, wheezing, other Gastrointestinal/Abdominal: Denies: no symptoms, abdomen distended, abdominal pain, black stools, tarry stools, blood in stool, constipated, diarrhea, difficulty swallowing, nausea, poor appetite, poor fluid intake, rectal bleeding , vomiting, other Genitourinary: Denies: no symptoms, burning, discharge, frequency, flank pain, hematuria, incontinence, pain, urgency, other Neurologic/Psychiatric: Denies: no symptoms, anxiety, depressed, emotional problems, headache, numbness, paresthesia, pre-existing deficit, seizure, tingling, tremors, weakness, other Endocrine: Denies: no symptoms, excessive sweating, flushing, intolerance to cold, intolerance to heat, increased hunger, increased thirst, increased urine, unexplained weight gain, unexplained weight loss, other Allergies: Coded Allergies: No Known Allergies (Unverified , 03/23/20) Subjective 03/27 on 2lnc, on dobutamine, awake and alert, no bleeding 03/28 getting lovenox id dosing, reviewed cards recs, labs noted 03/29 no bleeding, meds reviewed, seen by surg, no bleeding Objective Objective Current Medications Medications (Trade) Dose Ordered Sig/Hunter Route PRN Reason Start Time Stop Time Status Last Admin Dose Admin Acetaminophen/ Hydrocodone Bitart (Brooks 5/325) 1 tab Q4H PRN ORAL Moderate Pain (Pain Scale 4-6) 03/24/20 11:30 03/30/20 11:29 03/24/20 22:05 Aspirin (ASA) 81 mg DAILY ORAL 03/24/20 09:00 05/07/20 08:59 03/28/20 08:32 Bisacodyl (Dulcolax) 10 mg HSPRN PRN RECTAL Constipation 03/27/20 08:00 06/25/20 07:59 03/28/20 16:36 Dextrose (Dextrose 50%) 25 ml Q30M PRN IV Hypoglycemia 03/24/20 08:15 06/21/20 04:14 Dextrose (Dextrose 50%) 50 ml Q30M PRN IV Hypoglycemia 03/24/20 08:15 06/21/20 04:14 Docusate Sodium (Colace) 100 mg EVERY 12 HOURS ORAL 03/24/20 09:00 04/22/20 08:59 03/28/20 21:12 Enoxaparin Sodium (Lovenox) 60 mg DAILY SUBQ 03/26/20 10:30 06/24/20 10:29 03/28/20 08:34 Furosemide (Lasix) 40 mg Q12HR IV 03/27/20 21:00 04/26/20 20:59 03/28/20 21:12 Hydromorphone HCl (Dilaudid) 2 mg Q4H PRN ORAL Severe Pain (Pain Scale 7-10) 03/24/20 08:30 03/30/20 08:29 Iron Sucrose 100 mg/Sodium Chloride 60 ml @ 240 mls/hr BEDTIME IV 03/26/20 21:00 03/30/20 21:14 03/28/20 21:11 Magnesium Hydroxide (Mom) 30 ml HSPRN PRN ORAL Constipation 03/27/20 08:00 04/26/20 07:59 Ondansetron HCl (Zofran) 4 mg Q6H PRN IVP Nausea & Vomiting 03/24/20 08:30 04/22/20 08:29 03/24/20 18:12 Polyethylene Glycol (Miralax) 17 gm HSPRN PRN ORAL Constipation 03/27/20 08:00 04/26/20 07:59 03/28/20 08:34 Last 24 Hour Vital Signs Date Time Temp Pulse Resp B/P (MAP) Pulse Ox O2 Delivery O2 Flow Rate FiO2 03/29/20 04:00 89 03/29/20 04:00 Room Air Room Air Room Air Room Air 03/29/20 04:00 97.2 81 20 102/53 (69) 96 03/29/20 04:00 Room Air Room Air Room Air Room Air 03/29/20 00:00 97.3 98 20 90/55 (67) 99 03/29/20 00:00 89 03/29/20 00:00 Room Air Room Air Room Air Room Air 03/28/20 20:00 Room Air Room Air Room Air Room Air 03/28/20 20:00 91 03/28/20 20:00 97.1 114 20 110/61 (77) 99 03/28/20 16:00 97.7 101 20 101/56 (71) 99 03/28/20 16:00 Nasal Cannula 2.0 Room Air Room Air Room Air 03/28/20 16:00 86 03/28/20 12:00 97.5 99 21 93/56 (68) 99 03/28/20 12:00 Nasal Cannula 2.0 Room Air Room Air Room Air 03/28/20 12:00 101 03/28/20 08:05 Nasal Cannula 2.0 Room Air Room Air Room Air 03/28/20 08:00 97.7 91 20 105/60 (75) 100 03/28/20 07:49 95 03/28/20 04:00 2.0 4/30/20 04:00 Nasal Cannula 2.0 03/28/20 04:00 98.1 89 24 90/60 (70) 96 03/28/20 03:36 104 03/28/20 00:00 Nasal Cannula 2.0 03/28/20 00:00 104 03/28/20 00:00 98.1 81 24 90/51 (64) 100 03/27/20 20:00 Nasal Cannula 2.0 03/27/20 20:00 2.0 03/27/20 20:00 97.7 90 20 100/56 (71) 99 03/27/20 19:04 93 03/27/20 16:00 Nasal Cannula 2.0 03/27/20 16:00 2.0 03/27/20 16:00 97.3 118 20 98/49 (65) 99 03/27/20 15:18 92 03/27/20 12:17 109/61 03/27/20 12:00 2.0 03/27/20 12:00 Nasal Cannula 2.0 03/27/20 12:00 97.2 117 20 109/61 (77) 99 03/27/20 11:37 83 03/27/20 08:00 Nasal Cannula 2.0 03/27/20 08:00 96.8 97 20 98/59 (72) 99 03/27/20 08:00 2.0 03/27/20 07:32 98 Intake and Output 03/28/20 03/29/20 19:00 07:00 Intake Total 800 ml 60 ml Output Total 710 ml 1500 ml Balance 90 ml -1440 ml Intake Oral 800 ml IV Total 60 ml Output Urine Total 710 ml 1500 ml # Bowel Movements 1 Labs Test 03/27/20 06:40 03/28/20 04:08 03/29/20 04:50 White Blood Count 3.4 K/UL (4.8-10.8) 4.2 K/UL (4.8-10.8) 5.5 K/UL (4.8-10.8) Red Blood Count 3.68 M/UL (4.70-6.10) 3.83 M/UL (4.70-6.10) 4.00 M/UL (4.70-6.10) Hemoglobin 9.6 G/DL (14.2-18.0) 9.9 G/DL (14.2-18.0) 10.4 G/DL (14.2-18.0) Hematocrit 29.1 % (42.0-52.0) 30.3 % (42.0-52.0) 31.8 % (42.0-52.0) Mean Corpuscular Volume 79 FL (80-99) 79 FL (80-99) 80 FL (80-99) Mean Corpuscular Hemoglobin 25.9 PG (27.0-31.0) 25.9 PG (27.0-31.0) 25.9 PG (27.0-31.0) Mean Corpuscular Hemoglobin Concent 32.9 G/DL (32.0-36.0) 32.6 G/DL (32.0-36.0) 32.5 G/DL (32.0-36.0) Red Cell Distribution Width 18.8 % (11.6-14.8) 19.4 % (11.6-14.8) 20.0 % (11.6-14.8) Platelet Count 237 K/UL (150-450) 252 K/UL (150-450) 265 K/UL (150-450) Mean Platelet Volume 6.3 FL (6.5-10.1) 6.2 FL (6.5-10.1) 6.4 FL (6.5-10.1) Neutrophils (%) (Auto) % (45.0-75.0) 66.0 % (45.0-75.0) 70.1 % (45.0-75.0) Lymphocytes (%) (Auto) % (20.0-45.0) 19.2 % (20.0-45.0) 17.7 % (20.0-45.0) Monocytes (%) (Auto) % (1.0-10.0) 12.0 % (1.0-10.0) 10.2 % (1.0-10.0) Eosinophils (%) (Auto) % (0.0-3.0) 1.3 % (0.0-3.0) 0.9 % (0.0-3.0) Basophils (%) (Auto) % (0.0-2.0) 1.6 % (0.0-2.0) 1.0 % (0.0-2.0) Differential Total Cells Counted 100 Neutrophils % (Manual) 72 % (45-75) Lymphocytes % (Manual) 15 % (20-45) Monocytes % (Manual) 10 % (1-10) Eosinophils % (Manual) 2 % (0-3) Basophils % (Manual) 1 % (0-2) Band Neutrophils 0 % (0-8) Platelet Estimate Adequate Platelet Morphology Normal Hypochromasia 2+ Anisocytosis 2+ Microcytosis 1+ Sodium Level 138 MMOL/L (136-145) 134 MMOL/L (136-145) 138 MMOL/L (136-145) Potassium Level 3.8 MMOL/L (3.5-5.1) 3.7 MMOL/L (3.5-5.1) 3.7 MMOL/L (3.5-5.1) Chloride Level 99 MMOL/L (98-107) 98 MMOL/L (98-107) 99 MMOL/L (98-107) Carbon Dioxide Level 33 MMOL/L (21-32) 31 MMOL/L (21-32) 30 MMOL/L (21-32) Anion Gap 6 mmol/L (5-15) 6 mmol/L (5-15) 9 mmol/L (5-15) Blood Urea Nitrogen 35 mg/dL (7-18) 38 mg/dL (7-18) 34 mg/dL (7-18) Creatinine 1.7 MG/DL (0.55-1.30) 1.6 MG/DL (0.55-1.30) 1.4 MG/DL (0.55-1.30) Estimat Glomerular Filtration Rate 40.9 mL/min (>60) 43.9 mL/min (>60) 51.2 mL/min (>60) Glucose Level 128 MG/DL (74-106) 126 MG/DL (74-106) 128 MG/DL (74-106) Calcium Level 9.2 MG/DL (8.5-10.1) 9.3 MG/DL (8.5-10.1) 8.9 MG/DL (8.5-10.1) Phosphorus Level 3.2 MG/DL (2.5-4.9) 3.3 MG/DL (2.5-4.9) 3.2 MG/DL (2.5-4.9) Magnesium Level 2.2 MG/DL (1.8-2.4) 2.0 MG/DL (1.8-2.4) Total Bilirubin 1.6 MG/DL (0.2-1.0) 1.3 MG/DL (0.2-1.0) 1.2 MG/DL (0.2-1.0) Direct Bilirubin 1.0 MG/DL (0.0-0.3) 0.8 MG/DL (0.0-0.3) 0.8 MG/DL (0.0-0.3) Aspartate Amino Transf (AST/SGOT) 31 U/L (15-37) 24 U/L (15-37) 27 U/L (15-37) Alanine Aminotransferase (ALT/SGPT) 46 U/L (12-78) 28 U/L (12-78) 40 U/L (12-78) Alkaline Phosphatase 205 U/L (46-116) 196 U/L (46-116) 199 U/L (46-116) Total Protein 7.9 G/DL (6.4-8.2) 7.7 G/DL (6.4-8.2) 7.9 G/DL (6.4-8.2) Albumin 3.2 G/DL (3.4-5.0) 3.2 G/DL (3.4-5.0) 3.3 G/DL (3.4-5.0) Globulin 4.7 g/dL 4.5 g/dL 4.6 g/dL Albumin/Globulin Ratio 0.7 (1.0-2.7) 0.7 (1.0-2.7) 0.7 (1.0-2.7) Height (Feet): 5 Height (Inches): 5.00 Weight (Pounds): 121 Objective Vitals: reviewed, normal General: normal inspection, well appearing, no apparent distress, alert Head: atraumatic Heent: nc, at Resp: normal inspection, lungs clear, normal breath sounds Cardiovascular: regular rate, rhythm, no edema, JVD Gastrointestinal: normal inspection, normal bowel sounds, non tender, soft, no guarding, no hernia Msk: normal inspection, back normal, normal range of motion Neurologic: alert, motor strength/tone normal, automatic winder operator III-XII nml as tested, oriented x3 Psychiatric: normal inspection, judgement/insight normal, mood/affect normal Ext: right venous line femoral less bleeding Jonn River MD March 29, 2020 06:51
--- NOTE | 2020-03-29 07:26 | NUR ---
TRANSFER TO FLOOR: Patient transferred to 2E room 214-1 per MD order. Report given to ZENA Watkins. Belongings and medications given to receiving RN and remain at patient's bedside. Family and or S/O informed of transfer. pt remains in stable condition.
[2020-03-29 08:00] VITALS: BP 112/78
[2020-03-29] MEDS: Aspirin Baby 81mg ORAL SCH (08:59)
[2020-03-29] MEDS: Docusate 100mg cap ORAL SCH ×2 (08:59→20:32)
[2020-03-29] MEDS ORDERED: HYDROmorphone 2mg tab ORAL PRN (09:00)
[2020-03-29] MEDS ORDERED: Enoxaparin 60mg Inj SUBQ SCH (09:00)
[2020-03-29] MEDS ORDERED: HYDROcodone/Acetamin 5/325 tab ORAL PRN (09:00)
[2020-03-29] MEDS ORDERED: Miralax 17gm pkt ORAL PRN (09:00)
--- NOTE | 2020-03-29 09:47 | NUR ---
CASE MANAGEMENT: 03/29/20 SI: PLEURAL EFFUSION DUE TO CHF EXACERBATION . A-FIB UNCONTROLLED . HEMATURIA . PITTING EDEMA in EXTREMITIES. 97.2 102 20 102/53 96% 2L NC BUN 34 CREAT 1.4 BG 128 TBIL/DBIL 1.2/0.8 ALKP 199 ALB 3.3 IS;LASIX IV Q12 HRS IRON SUCROSE IV HS ASA PO QD LOVENOX SUBQ QD \: 2E TELE UNIT DCP: HOME WHEN STABLE PLAN: START ON IV VENOFER X2 BAGS EF 15% INCREASE IV LASIX Addendum: 03/29/20 at 1153 by MEENA MILES LVN PLAN: ICD PLACEMENT Addendum: 03/29/20 at 1156 by MEENA MIELS LVN PLAN: MEDICAL APPLICATION IN PROCESS
--- NOTE | 2020-03-29 10:12 | General Progress Note ---
Assessment/Plan Assessment/Plan: 64 yo M w/ MMP PMHx A fib, CHF, Smoker w/ possible COPD presented t the ED via EMS for several days of CP and SOB. Pt reports 1 week of progressive chest heaviness and pain. Pain is described as moderate, constant w/ waxing and waning , not worse w/ exertion. Also reports bl le edema and dry cough. #Chest pain, atypical #Acute decompensated CHF #Acute on Chronic systolic heart failure, EF 15% #A fib, rate controlled #HTN - cont. electronic device monitor - 03/24: s/p central line placement by gen sx - ACS ruled out - TTE -> EF < 15% - s/p dobutamine ggt - Records from [facility] w/ nonischemic cardiomyopathy presumably 2/2 EtOH, last cardiac cath 02/07/2018 with no CAD - pt will need ICD when isnurance approves - d/w cardio, will medically manage. 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 [facility] - start lasix 60 mg PO q daily - start carvedilol 3.125 #Acute anemia, suspect blood loss on AC - repeat CBC this am closer to baseline from admit - 03/24: s/p 1 U PRBC - goal Hgb >7.5, Transfuse for Hb < 7.5 - Heme consulted, OK to start anticoagulation #COPD, suspected #Current smoker #Pleural effusion, due to CHF - nebs prn sob/wheeze - nicotine patch offered, refused - ctm resp status and effusion - sup o2 as needed #AALIYAH, suspect cardiorenal syndrome (baseline cr unknown) - Cr 3.3 on admission, downtrending - renal US no significant findings - diuresis as above - avoid nephro toxic meds - d/w nephro: plan to start lasix 60 mg PO q daily, will repeat BMP tomorrow - if Cr remains low plan to d/c home tomorrow #Hyperkalemia - resolved - ctm #Transaminitis, AST elevation - resolved #Hyperbilirubinemia #Cholelithiasis #H/o ETOH Cirrhosis - suspect due to hepatic congestion - ABD us w/ cholelithiasis, GB wall thickening, no CBD dilation noted - AST elevation now resolved - negative tanner's sign, no abd pain at this time - ctm - h/o etoh cirrhosis per chart review [facility] #Constipation - colace BID - PRN miralax, MOM, fleet enema #FEN/PPx - 1500cc fluid restriction - trend chem, replete lytes as needed - cardiac diet - DVT ppx: eliquis FULL CODE I spent 38 min on this case and 22 min was dedicated to counseling and care coordination including discussion w/RN, Dr. Luther and Dr. Spann. Time of this note may not reflect the time of the clinical encounter. Subjective Allergies: Coded Allergies: No Known Allergies (Unverified , 03/23/20) Subjective F/u acute on chronic CHF exacerbation. Cr down trending. Pt eager to go home, denies any CP, S OB. 12 pt ros neg except as above Objective Last 24 Hour Vital Signs Date Time Temp Pulse Resp B/P (MAP) Pulse Ox O2 Delivery O2 Flow Rate FiO2 03/29/20 08:00 Room Air Room Air Room Air Room Air 03/29/20 07:40 102 03/29/20 04:00 89 03/29/20 04:00 Room Air Room Air Room Air Room Air 03/29/20 04:00 97.2 81 20 102/53 (69) 96 03/29/20 04:00 Room Air Room Air Room Air Room Air 03/29/20 00:00 97.3 98 20 90/55 (67) 99 03/29/20 00:00 89 03/29/20 00:00 Room Air Room Air Room Air Room Air 03/28/20 20:00 Room Air Room Air Room Air Room Air 03/28/20 20:00 91 03/28/20 20:00 97.1 114 20 110/61 (77) 99 03/28/20 16:00 97.7 101 20 101/56 (71) 99 03/28/20 16:00 Nasal Cannula 2.0 Room Air Room Air Room Air 03/28/20 16:00 86 03/28/20 12:00 97.5 99 21 93/56 (68) 99 03/28/20 12:00 Nasal Cannula 2.0 Room Air Room Air Room Air 03/28/20 12:00 101 Intake and Output 03/28/20 03/29/20 19:00 07:00 Intake Total 800 ml 60 ml Output Total 710 ml 1500 ml Balance 90 ml -1440 ml Intake Oral 800 ml IV Total 60 ml Output Urine Total 710 ml 1500 ml # Bowel Movements 1 Laboratory Tests 03/29/20 04:50: White Blood Count 5.5, Red Blood Count 4.00L, Hemoglobin 10.4L, Hematocrit 31.8L , Mean Corpuscular Volume 80, Mean Corpuscular Hemoglobin 25.9L, Mean Corpuscular Hemoglobin Concent 32.5, Red Cell Distribution Width 20.0H, Platelet Count 265, Mean Platelet Volume 6.4L, Neutrophils (%) (Auto) 70.1, Lymphocytes (%) (Auto) 17.7L, Monocytes (%) (Auto) 10.2H, Eosinophils (%) (Auto ) 0.9, Basophils (%) (Auto) 1.0, Sodium Level 138, Potassium Level 3.7, Chloride Level 99, Carbon Dioxide Level 30, Anion Gap 9, Blood Urea Nitrogen 34H , Creatinine 1.4H, Estimat Glomerular Filtration Rate 51.2, Glucose Level 128H, Calcium Level 8.9, Phosphorus Level 3.2, Magnesium Level 2.0, Total Bilirubin 1.2H, Direct Bilirubin 0.8H, Aspartate Amino Transf (AST/SGOT) 27, Alanine Aminotransferase (ALT/SGPT) 40, Alkaline Phosphatase 199H, Total Protein 7.9, Albumin 3.3L, Globulin 4.6, Albumin/Globulin Ratio 0.7L Height (Feet): 5 Height (Inches): 5.00 Weight (Pounds): 121 Objective General Appearance: WD/WN, no apparent distress, alert HEENT: normocephalic, atraumatic, PERRL, EOMI Neck: normal alignment, supple Respiratory/Chest: lungs clear, normal breath sounds, no respiratory distress, no accessory muscle use Cardiovascular/Chest: normal peripheral pulses, regularly rhythm, no gallop/ murmur, JVD Abdomen: normal bowel sounds, non tender, soft, negative tanner's sign Extremities: no edema, no bruising noted in right groin Laisha Lares M.D. March 29, 2020 10:12
--- NOTE | 2020-03-29 11:23 | Surgery Progress Note ---
Surgery Progress Note Subjective Procedure Performed Right femoral central venous catheter removed Additional Comments labs improved exam stable no acute events Objective Last 24 Hour Vital Signs Date Time Temp Pulse Resp B/P (MAP) Pulse Ox O2 Delivery O2 Flow Rate FiO2 03/29/20 08:00 Room Air Room Air Room Air Room Air 03/29/20 07:40 102 03/29/20 04:00 89 03/29/20 04:00 Room Air Room Air Room Air Room Air 03/29/20 04:00 97.2 81 20 102/53 (69) 96 03/29/20 04:00 Room Air Room Air Room Air Room Air 03/29/20 00:00 97.3 98 20 90/55 (67) 99 03/29/20 00:00 89 03/29/20 00:00 Room Air Room Air Room Air Room Air 03/28/20 20:00 Room Air Room Air Room Air Room Air 03/28/20 20:00 91 03/28/20 20:00 97.1 114 20 110/61 (77) 99 03/28/20 16:00 97.7 101 20 101/56 (71) 99 03/28/20 16:00 Nasal Cannula 2.0 Room Air Room Air Room Air 03/28/20 16:00 86 03/28/20 12:00 97.5 99 21 93/56 (68) 99 03/28/20 12:00 Nasal Cannula 2.0 Room Air Room Air Room Air 03/28/20 12:00 101 I&O Intake and Output 03/28/20 03/29/20 19:00 07:00 Intake Total 800 ml 60 ml Output Total 710 ml 1500 ml Balance 90 ml -1440 ml Intake Oral 800 ml IV Total 60 ml Output Urine Total 710 ml 1500 ml # Bowel Movements 1 Dressing: other Wound: other Drains: other Cardiovascular: RSR Respiratory: decreased breath sounds Abdomen: soft, non-tender, present bowel sounds Extremities: no tenderness, no cyanosis Laboratory Tests Test 03/29/20 04:50 White Blood Count 5.5 K/UL (4.8-10.8) Red Blood Count 4.00 M/UL (4.70-6.10) L Hemoglobin 10.4 G/DL (14.2-18.0) L Hematocrit 31.8 % (42.0-52.0) L Mean Corpuscular Volume 80 FL (80-99) Mean Corpuscular Hemoglobin 25.9 PG (27.0-31.0) L Mean Corpuscular Hemoglobin Concent 32.5 G/DL (32.0-36.0) Red Cell Distribution Width 20.0 % (11.6-14.8) H Platelet Count 265 K/UL (150-450) Mean Platelet Volume 6.4 FL (6.5-10.1) L Neutrophils (%) (Auto) 70.1 % (45.0-75.0) Lymphocytes (%) (Auto) 17.7 % (20.0-45.0) L Monocytes (%) (Auto) 10.2 % (1.0-10.0) H Eosinophils (%) (Auto) 0.9 % (0.0-3.0) Basophils (%) (Auto) 1.0 % (0.0-2.0) Sodium Level 138 MMOL/L (136-145) Potassium Level 3.7 MMOL/L (3.5-5.1) Chloride Level 99 MMOL/L (98-107) Carbon Dioxide Level 30 MMOL/L (21-32) Anion Gap 9 mmol/L (5-15) Blood Urea Nitrogen 34 mg/dL (7-18) H Creatinine 1.4 MG/DL (0.55-1.30) H Estimat Glomerular Filtration Rate 51.2 mL/min (>60) Glucose Level 128 MG/DL (74-106) H Calcium Level 8.9 MG/DL (8.5-10.1) Phosphorus Level 3.2 MG/DL (2.5-4.9) Magnesium Level 2.0 MG/DL (1.8-2.4) Total Bilirubin 1.2 MG/DL (0.2-1.0) H Direct Bilirubin 0.8 MG/DL (0.0-0.3) H Aspartate Amino Transf (AST/SGOT) 27 U/L (15-37) Alanine Aminotransferase (ALT/SGPT) 40 U/L (12-78) Alkaline Phosphatase 199 U/L (46-116) H Total Protein 7.9 G/DL (6.4-8.2) Albumin 3.3 G/DL (3.4-5.0) L Globulin 4.6 g/dL Albumin/Globulin Ratio 0.7 (1.0-2.7) L Plan Problems: (1) Renal insufficiency Assessment & Plan: 64-year-old male presented with shortness of breath chest pain currently admitted for medical care and management identified to have renal insufficiency, hypotension, abnormal labs. line removed (2) Abnormal LFTs Assessment & Plan: UGallbladder nondistended. It contains a gallstone. Gallbladder wall is somewhat thickened, measuring up to 4 mm thick. Sonographic Rosas's sign is negative. Common bile duct measures 3 mm in diameter. No intrahepatic biliary ductal dilatation. Liver demonstrates normal echogenicity, no focal abnormality. Portal vein and hepatic veins are patent. Pancreas is unremarkable. Spleen is unremarkable. Left kidney measures 10.1 cm in length. Right kidney measures 11.6 cm length. Both kidneys demonstrate normal echogenicity. There is no hydronephrosis. No focal abnormality. There is, however, trace right perinephric fluid. . The prostate is not enlarged. The bladder is unremarkable.. Non-aneurysmal abdominal aorta . There is a small left pleural effusion. The inferior vena cava and hepatic veins are somewhat distended Impression: Cholelithiasis. Gallbladder wall thickening, may in part be exaggerated by lack of distention or could be due to edema of systemic origin. However, the possibility of acute cholecystitis should also be considered. Consider hepatobiliary nuclear scan if there is high clinical suspicion. no abd pain us noted exam clinically table labs okay can follow outpatient no acute intervention necessary (3) Hypotension Assessment & Plan: Patient with hypotension requiring pressors. Eval myself at the bedside central venous catheter indicated recommended Discussed with medical team nursing staff and care plan with patient Please see procedure note we will follow with recommendations line removed 03/27 Chuck Pittman March 29, 2020 11:23
--- NOTE | 2020-03-29 11:48 | Cardiac Electrophysiology PN ---
Assessment/Plan Assessment/Plan 1. Exacerbation of CHF in this patient with severe cardiomyopathy EF 10-15% more than 2 years. Changed to Lasix 60 mg po daily. Avoid PRAVEEN inhibitor and angiotensin- receptor blockers in view of acute renal failure and creatinine of more than 3. Off Dobutamine. Add Coreg 3.125. Likely will need ICD when insurance approves. Usually FU at [facility] Extensive records from [facility] reviewed.Per last DS 11/14/19, CMP is nonischemic presumably ETOH but patient denied ETOH use. Cardiac cath 02/07/2018 showed no CAD. Add hydralazine and Isordil if BP allows after Coreg 2. Atrial fibrillation. Add low dose Coreg 3.125 bid On Eliquis 2.5 bid 3. Hypertension. Continue current medical therapy. 4. Renal failure, creatinine of 3.3. On dobutamine drip Cr improved to 1.4. FU Dr Tucker 5. Anemia, hemoglobin of 8.3. S/P PRBC one unit 6. ETOH Cirrhosis DW RN, case management and Dr Lares Subjective Subjective In atrial fib with PVCs. Extensive records from [facility] were reviewed yesterday. Transferred to tele. Objective Last 24 Hour Vital Signs Date Time Temp Pulse Resp B/P (MAP) Pulse Ox O2 Delivery O2 Flow Rate FiO2 03/29/20 08:00 Room Air Room Air Room Air Room Air 03/29/20 07:40 102 03/29/20 04:00 89 03/29/20 04:00 Room Air Room Air Room Air Room Air 03/29/20 04:00 97.2 81 20 102/53 (69) 96 03/29/20 04:00 Room Air Room Air Room Air Room Air 03/29/20 00:00 97.3 98 20 90/55 (67) 99 03/29/20 00:00 89 03/29/20 00:00 Room Air Room Air Room Air Room Air 03/28/20 20:00 Room Air Room Air Room Air Room Air 03/28/20 20:00 91 03/28/20 20:00 97.1 114 20 110/61 (77) 99 03/28/20 16:00 97.7 101 20 101/56 (71) 99 03/28/20 16:00 Nasal Cannula 2.0 Room Air Room Air Room Air 03/28/20 16:00 86 03/28/20 12:00 97.5 99 21 93/56 (68) 99 03/28/20 12:00 Nasal Cannula 2.0 Room Air Room Air Room Air 03/28/20 12:00 101 Intake and Output 03/28/20 03/29/20 19:00 07:00 Intake Total 800 ml 60 ml Output Total 710 ml 1500 ml Balance 90 ml -1440 ml Intake Oral 800 ml IV Total 60 ml Output Urine Total 710 ml 1500 ml # Bowel Movements 1 Laboratory Tests Test 03/29/20 04:50 White Blood Count 5.5 K/UL (4.8-10.8) Red Blood Count 4.00 M/UL (4.70-6.10) L Hemoglobin 10.4 G/DL (14.2-18.0) L Hematocrit 31.8 % (42.0-52.0) L Mean Corpuscular Volume 80 FL (80-99) Mean Corpuscular Hemoglobin 25.9 PG (27.0-31.0) L Mean Corpuscular Hemoglobin Concent 32.5 G/DL (32.0-36.0) Red Cell Distribution Width 20.0 % (11.6-14.8) H Platelet Count 265 K/UL (150-450) Mean Platelet Volume 6.4 FL (6.5-10.1) L Neutrophils (%) (Auto) 70.1 % (45.0-75.0) Lymphocytes (%) (Auto) 17.7 % (20.0-45.0) L Monocytes (%) (Auto) 10.2 % (1.0-10.0) H Eosinophils (%) (Auto) 0.9 % (0.0-3.0) Basophils (%) (Auto) 1.0 % (0.0-2.0) Sodium Level 138 MMOL/L (136-145) Potassium Level 3.7 MMOL/L (3.5-5.1) Chloride Level 99 MMOL/L (98-107) Carbon Dioxide Level 30 MMOL/L (21-32) Anion Gap 9 mmol/L (5-15) Blood Urea Nitrogen 34 mg/dL (7-18) H Creatinine 1.4 MG/DL (0.55-1.30) H Estimat Glomerular Filtration Rate 51.2 mL/min (>60) Glucose Level 128 MG/DL (74-106) H Calcium Level 8.9 MG/DL (8.5-10.1) Phosphorus Level 3.2 MG/DL (2.5-4.9) Magnesium Level 2.0 MG/DL (1.8-2.4) Total Bilirubin 1.2 MG/DL (0.2-1.0) H Direct Bilirubin 0.8 MG/DL (0.0-0.3) H Aspartate Amino Transf (AST/SGOT) 27 U/L (15-37) Alanine Aminotransferase (ALT/SGPT) 40 U/L (12-78) Alkaline Phosphatase 199 U/L (46-116) H Total Protein 7.9 G/DL (6.4-8.2) Albumin 3.3 G/DL (3.4-5.0) L Globulin 4.6 g/dL Albumin/Globulin Ratio 0.7 (1.0-2.7) L Objective HEAD AND NECK: Positive JVD. LUNGS: Decreased breath sounds. CARDIOVASCULAR: Shows irregular S1 and S2 with no gallop or murmur. ABDOMEN: Soft. EXTREMITIES: 1+ pitting edema.Right groin central line oozing Jovi Luther MD March 29, 2020 11:48
[2020-03-29 12:00] VITALS: BP 95/63
[2020-03-29 16:00] VITALS: BP 93/59
[2020-03-29] MEDS ORDERED: Tubing IV Secondary IV ONE (17:13)
[2020-03-29] MEDS ORDERED: NS 275ml ONE (17:13)
--- NOTE | 2020-03-29 17:34 | Nephrology Progress Note ---
Assessment/Plan Plan #AALIYAH on CKD- ?--unclear baseline - cardiorenal syndrome 1 #acute on chronic combined systolic and diastolic CHF #afib- rate controlled #anemia- of CKD? #elevated liver enzymes #h/o HTN #COPD #tobacco use disorder - renal US no signficant findings - switch to lasix 60 oral daily - start on coreg 3.125mg BID - follow echo-. EF < 15% - monitor weights - monitor mag and K closely - monitor UOP- stric - daily weights - monitor and replete lytes - continue asa - prbc transfusion prn - target hemoglobin > 7.5 - check iron panel and ferritin- adequate time spent 46 min- > 50% on care coordination and counselling Subjective ROS Limited/Unobtainable: No Subjective Breathing improving satting well on room air Cr down to 1.4 v BID hemoglobin stable Objective Objective Last 24 Hour Vital Signs Date Time Temp Pulse Resp B/P (MAP) Pulse Ox O2 Delivery O2 Flow Rate FiO2 03/29/20 16:00 Room Air Room Air Room Air Room Air 03/29/20 16:00 97.2 88 20 93/59 (70) 96 03/29/20 12:00 Room Air Room Air Room Air Room Air 03/29/20 12:00 97.2 93 20 95/63 (74) 96 03/29/20 11:44 98 03/29/20 08:00 97.2 99 20 112/78 (89) 96 03/29/20 08:00 Room Air Room Air Room Air Room Air 03/29/20 07:40 102 03/29/20 04:00 89 03/29/20 04:00 Room Air Room Air Room Air Room Air 03/29/20 04:00 97.2 81 20 102/53 (69) 96 03/29/20 04:00 Room Air Room Air Room Air Room Air 03/29/20 00:00 97.3 98 20 90/55 (67) 99 03/29/20 00:00 89 03/29/20 00:00 Room Air Room Air Room Air Room Air 03/28/20 20:00 Room Air Room Air Room Air Room Air 03/28/20 20:00 91 03/28/20 20:00 97.1 114 20 110/61 (77) 99 Intake and Output 03/28/20 03/29/20 19:00 07:00 Intake Total 800 ml 60 ml Output Total 710 ml 1500 ml Balance 90 ml -1440 ml Intake Oral 800 ml IV Total 60 ml Output Urine Total 710 ml 1500 ml # Bowel Movements 1 Laboratory Tests 03/29/20 04:50: White Blood Count 5.5, Red Blood Count 4.00L, Hemoglobin 10.4L, Hematocrit 31.8L , Mean Corpuscular Volume 80, Mean Corpuscular Hemoglobin 25.9L, Mean Corpuscular Hemoglobin Concent 32.5, Red Cell Distribution Width 20.0H, Platelet Count 265, Mean Platelet Volume 6.4L, Neutrophils (%) (Auto) 70.1, Lymphocytes (%) (Auto) 17.7L, Monocytes (%) (Auto) 10.2H, Eosinophils (%) (Auto ) 0.9, Basophils (%) (Auto) 1.0, Sodium Level 138, Potassium Level 3.7, Chloride Level 99, Carbon Dioxide Level 30, Anion Gap 9, Blood Urea Nitrogen 34H , Creatinine 1.4H, Estimat Glomerular Filtration Rate 51.2, Glucose Level 128H, Calcium Level 8.9, Phosphorus Level 3.2, Magnesium Level 2.0, Total Bilirubin 1.2H, Direct Bilirubin 0.8H, Aspartate Amino Transf (AST/SGOT) 27, Alanine Aminotransferase (ALT/SGPT) 40, Alkaline Phosphatase 199H, Total Protein 7.9, Albumin 3.3L, Globulin 4.6, Albumin/Globulin Ratio 0.7L Height (Feet): 5 Height (Inches): 5.00 Weight (Pounds): 121 Objective General Appearance: no apparent distress Lines, tubes and drains: peripheral HEENT: normocephalic Neck: non-tender Respiratory/Chest: chest wall non-tender, crackles/rales Cardiovascular/Chest: normal peripheral pulses, normal rate, regularly irregular Abdomen: normal bowel sounds, non tender, soft Extremities: moderate edema Neurologic: alert, oriented x 3, responsive Gini Spann M.D. March 29, 2020 17:34
[2020-03-29] MEDS: Eliquis 2.5mg tablet ORAL SCH (17:57)
--- NOTE | 2020-03-29 19:50 | NUR ---
NURSE NOTES: Received pt from ZENA Watkins. Pt awake, alert, and talkative. Bed in lowest position. Call light within reach. Will continue to monitor.
[2020-03-29 20:00] VITALS: BP 95/58
[2020-03-29] MEDS ORDERED: Iron Sucrose 100 MG in NS 55 ML IV SCH (21:00)
[2020-03-30] VITALS: BP 99/61
[2020-03-30 04:00] VITALS: BP 97/57
--- NOTE | 2020-03-30 07:15 | NUR ---
HAND-OFF: Report given to ZENA Greenberg. Pt stable.
--- NOTE | 2020-03-30 07:30 | NUR ---
NURSE NOTES: Recvd pt. Pt is AOx4. Pt is on room air with no sign of sob or resp distress. Bed in the lowest position, call light within reach, side rails up x3, and bed alarm on. Will continue plan of care
[2020-03-30 08:00] VITALS: BP 99/61
[2020-03-30] MEDS ORDERED: Milk of Magnesia 30ml Ud ORAL PRN (08:00)
--- NOTE | 2020-03-30 08:40 | Nephrology Progress Note ---
Assessment/Plan Plan #AALIYAH on CKD- ?--unclear baseline - cardiorenal syndrome 1 #acute on chronic combined systolic and diastolic CHF #afib- rate controlled #anemia- of CKD? #elevated liver enzymes #h/o HTN #COPD #tobacco use disorder - renal US no signficant findings - switch to lasix 60 oral daily - start on coreg 3.125mg BID - follow echo-. EF < 15% - monitor weights - monitor mag and K closely - monitor UOP- stric - daily weights - monitor and replete lytes - continue asa - prbc transfusion prn - target hemoglobin > 7.5 - check iron panel and ferritin- adequate time spent 46 min- > 50% on care coordination and counselling Subjective ROS Limited/Unobtainable: No Subjective Breathing improving satting well on room air Cr down to 1.4 v BID hemoglobin stable Objective Objective Last 24 Hour Vital Signs Date Time Temp Pulse Resp B/P (MAP) Pulse Ox O2 Delivery O2 Flow Rate FiO2 03/30/20 08:00 Room Air Room Air Room Air Room Air 03/30/20 08:00 97.0 88 18 99/61 (74) 97 03/30/20 04:00 97.5 88 18 97/57 (70) 99 03/30/20 04:00 Room Air Room Air Room Air Room Air 03/30/20 04:00 84 03/30/20 00:00 79 03/30/20 00:00 97.7 102 18 99/61 (74) 98 03/30/20 00:00 Room Air Room Air Room Air Room Air 03/29/20 20:00 95 03/29/20 20:00 96.9 114 18 95/58 (70) 97 03/29/20 20:00 Room Air Room Air Room Air Room Air 03/29/20 16:00 Room Air Room Air Room Air Room Air 03/29/20 16:00 97.2 88 20 93/59 (70) 96 03/29/20 15:39 98 03/29/20 12:00 Room Air Room Air Room Air Room Air 03/29/20 12:00 97.2 93 20 95/63 (74) 96 03/29/20 11:44 98 Intake and Output 03/29/20 03/30/20 19:00 07:00 Intake Total 500 ml Balance 500 ml Intake Oral 500 ml # Voids 2 2 Height (Feet): 5 Height (Inches): 5.00 Weight (Pounds): 121 Objective General Appearance: no apparent distress Lines, tubes and drains: peripheral HEENT: normocephalic Neck: non-tender Respiratory/Chest: chest wall non-tender, crackles/rales Cardiovascular/Chest: normal peripheral pulses, normal rate, regularly irregular Abdomen: normal bowel sounds, non tender, soft Extremities: moderate edema Neurologic: alert, oriented x 3, responsive Gini Spann M.D. March 30, 2020 08:40
[2020-03-30] MEDS: Docusate 100mg cap ORAL SCH (08:58)
[2020-03-30] MEDS: Aspirin Baby 81mg ORAL SCH (08:58)
[2020-03-30] MEDS ORDERED: Furosemide 40mg tab ORAL SCH (09:00)
[2020-03-30] MEDS: Eliquis 2.5mg tablet ORAL SCH (09:00)
[2020-03-30 09:20] LABS: BASOPHILS % (AUTO) 2.1 % (0.0-2.0); EOSINOPHILS % (AUTO) 1.1 % (0.0-3.0); LYMPHOCYTES % (AUTO) 16.4 % (20.0-45.0); MEAN CORPUSCULAR VOLUME 81 FL (80-99); MONOCYTES % (AUTO) 11.3 % (1.0-10.0); NEUTROPHILS % (AUTO) 69.1 % (45.0-75.0); PLATELET COUNT 295 K/UL (150-450); RED BLOOD COUNT 3.83 M/UL (4.70-6.10); RED CELL DISTRIBUTION WIDTH 20.2 % (11.6-14.8); WHITE BLOOD COUNT 5.2 K/UL (4.8-10.8)
[2020-03-30 09:41] LABS: ANION GAP 10 mmol/L (5-15); BLOOD UREA NITROGEN 34 mg/dL (7-18); CALCIUM 9.2 MG/DL (8.5-10.1); CARBON DIOXIDE 29 MMOL/L (21-32); CHLORIDE 97 MMOL/L (98-107); CREATININE 1.4 MG/DL (0.55-1.30); POTASSIUM 3.5 MMOL/L (3.5-5.1); SODIUM 135 MMOL/L (136-145)
--- NOTE | 2020-03-30 11:24 | Surgery Progress Note ---
Surgery Progress Note Subjective Procedure Performed Right femoral central venous catheter removed Additional Comments Patient seen and examined bedside. No acute events. Comfortable appearing. Labs noted. States he feels well. No pain. Objective Last 24 Hour Vital Signs Date Time Temp Pulse Resp B/P (MAP) Pulse Ox O2 Delivery O2 Flow Rate FiO2 03/30/20 08:39 88 99/61 03/30/20 08:00 Room Air Room Air Room Air Room Air 03/30/20 08:00 97.0 88 18 99/61 (74) 97 03/30/20 08:00 96 03/30/20 04:00 97.5 88 18 97/57 (70) 99 03/30/20 04:00 Room Air Room Air Room Air Room Air 03/30/20 04:00 84 03/30/20 00:00 79 03/30/20 00:00 97.7 102 18 99/61 (74) 98 03/30/20 00:00 Room Air Room Air Room Air Room Air 03/29/20 20:00 95 03/29/20 20:00 96.9 114 18 95/58 (70) 97 03/29/20 20:00 Room Air Room Air Room Air Room Air 03/29/20 16:00 Room Air Room Air Room Air Room Air 03/29/20 16:00 97.2 88 20 93/59 (70) 96 03/29/20 15:39 98 03/29/20 12:00 Room Air Room Air Room Air Room Air 03/29/20 12:00 97.2 93 20 95/63 (74) 96 03/29/20 11:44 98 I&O Intake and Output 03/29/20 03/30/20 19:00 07:00 Intake Total 500 ml Balance 500 ml Intake Oral 500 ml # Voids 2 2 Dressing: dry Wound: clean Cardiovascular: RSR Respiratory: clear Abdomen: soft, non-tender, present bowel sounds Extremities: no tenderness, no cyanosis Laboratory Tests Test 03/30/20 08:08 White Blood Count 5.2 K/UL (4.8-10.8) Red Blood Count 3.83 M/UL (4.70-6.10) L Hemoglobin 10.0 G/DL (14.2-18.0) L Hematocrit 31.0 % (42.0-52.0) L Mean Corpuscular Volume 81 FL (80-99) Mean Corpuscular Hemoglobin 26.2 PG (27.0-31.0) L Mean Corpuscular Hemoglobin Concent 32.4 G/DL (32.0-36.0) Red Cell Distribution Width 20.2 % (11.6-14.8) H Platelet Count 295 K/UL (150-450) Mean Platelet Volume 6.4 FL (6.5-10.1) L Neutrophils (%) (Auto) 69.1 % (45.0-75.0) Lymphocytes (%) (Auto) 16.4 % (20.0-45.0) L Monocytes (%) (Auto) 11.3 % (1.0-10.0) H Eosinophils (%) (Auto) 1.1 % (0.0-3.0) Basophils (%) (Auto) 2.1 % (0.0-2.0) H Sodium Level 135 MMOL/L (136-145) L Potassium Level 3.5 MMOL/L (3.5-5.1) Chloride Level 97 MMOL/L (98-107) L Carbon Dioxide Level 29 MMOL/L (21-32) Anion Gap 10 mmol/L (5-15) Blood Urea Nitrogen 34 mg/dL (7-18) H Creatinine 1.4 MG/DL (0.55-1.30) H Estimat Glomerular Filtration Rate 51.2 mL/min (>60) Glucose Level 244 MG/DL (74-106) #H Calcium Level 9.2 MG/DL (8.5-10.1) Magnesium Level 1.9 MG/DL (1.8-2.4) Plan Problems: (1) Renal insufficiency Assessment & Plan: 64-year-old male presented with shortness of breath chest pain currently admitted for medical care and management identified to have renal insufficiency, hypotension, abnormal labs. line removed (2) Abnormal LFTs Assessment & Plan: UGallbladder nondistended. It contains a gallstone. Gallbladder wall is somewhat thickened, measuring up to 4 mm thick. Sonographic Rosas's sign is negative. Common bile duct measures 3 mm in diameter. No intrahepatic biliary ductal dilatation. Liver demonstrates normal echogenicity, no focal abnormality. Portal vein and hepatic veins are patent. Pancreas is unremarkable. Spleen is unremarkable. Left kidney measures 10.1 cm in length. Right kidney measures 11.6 cm length. Both kidneys demonstrate normal echogenicity. There is no hydronephrosis. No focal abnormality. There is, however, trace right perinephric fluid. . The prostate is not enlarged. The bladder is unremarkable.. Non-aneurysmal abdominal aorta . There is a small left pleural effusion. The inferior vena cava and hepatic veins are somewhat distended Impression: Cholelithiasis. Gallbladder wall thickening, may in part be exaggerated by lack of distention or could be due to edema of systemic origin. However, the possibility of acute cholecystitis should also be considered. Consider hepatobiliary nuclear scan if there is high clinical suspicion. no abd pain us noted exam clinically table labs okay can follow outpatient no acute intervention necessary (3) Hypotension Assessment & Plan: Patient with hypotension requiring pressors. Eval myself at the bedside central venous catheter indicated recommended Discussed with medical team nursing staff and care plan with patient Please see procedure note we will follow with recommendations line removed 03/27 improving comfortable no complaints cont current care Chuck Castelan March 30, 2020 11:24
[2020-03-30 12:00] VITALS: BP 101/65
--- NOTE | 2020-03-30 12:53 | Discharge Summary ---
Discharge Summary Hospital Course Date of Admission Mar 23, 2020 at 01:48 Date of Discharge Admitting Diagnosis chest pain, chf exacerbation, afib HPI Praneeth Looney is a 64 year old male who was admitted on Mar 23, 2020 at 01:48 for Chest Pain, Chf Exacerbation, Afib Hospital Course 64 yo M w/ MMP PMHx A fib, CHF, Smoker w/ possible COPD presented t the ED via EMS for several days of CP and SOB. Pt reports 1 week of progressive chest heaviness and pain. Pain is described as moderate, constant w/ waxing and waning , not worse w/ exertion. Also reports bl le edema and dry cough. Cardiology was consulted, ACS ruled out. TTE revealed EF 15%, patient started on dobutamine ggt with improvement. Records obtained from [facility] revealed nonischemic cardiomyopathy presumably due to EtOH. Last cardiac cath 02/07/2018 with no CAD. Patient will need ICD when insurance approves. Discussed with cardiology who stated to continue medical management and for patient to follow- up with color checker at [facility]. Explained findings and plan of care to patient who expressed understanding and stated will follow up with color checker at [facility]. Noted with Brenda. theodore, started on Eliquis with no signs of bleeding. Patient instructed to monitor for signs of bleeding and expressed understanding. Pt to be d/c w/ Eliquis 2.5 twice daily, ASA, Coreg 3.125 mg bid, no statin due to EtOH cirrhosis. Pt d/c in stable condition. #Chest pain, atypical #Acute decompensated CHF #Acute on Chronic systolic heart failure, EF 15% #A fib, rate controlled #HTN #Acute anemia, suspect blood loss on AC #COPD, suspected #Current smoker #Pleural effusion, due to CHF #AALIYAH, suspect cardiorenal syndrome (baseline cr unknown) #Hyperkalemia - resolved #Transaminitis, AST elevation - resolved #Hyperbilirubinemia #Cholelithiasis #H/o ETOH Cirrhosis #Constipation D/c planning >30 mins Discharge Condition Upon Discharge: stable Discharge Vital Signs Last Vital Signs Date Time Temp Pulse Resp B/P (MAP) Pulse Ox O2 Delivery O2 Flow Rate FiO2 03/30/20 12:00 98.2 97 18 101/65 (77) 97 03/30/20 12:00 Room Air Room Air Room Air Room Air 03/28/20 16:00 2.0 Discharge Disposition Patient was discharged to home Laisha Lares M.D. March 30, 2020 12:52
[2020-03-30] MEDS ORDERED: COREG3.125 MG ORAL (12:58)
[2020-03-30] MEDS ORDERED: ELIQUIS2.5 MG ORAL (12:58)
[2020-03-30] MEDS ORDERED: ASPIRIN81 MG ORAL (12:58)
--- NOTE | 2020-03-30 12:59 | Discharge Instructions ---
Discharge Instructions Discharge Instructions Follow up with: PCP and [facility]older at [facility] in 1 week. For Congestive Heart Failure Reminder Report to your physician any weight gain of 5 pounds or more in one week. Laisha Lares M.D. March 30, 2020 12:59
--- NOTE | 2020-03-30 13:54 | Cardiac Electrophysiology PN ---
Assessment/Plan Assessment/Plan 1. Exacerbation of CHF in this patient with severe cardiomyopathy EF 10-15% more than 2 years. On Lasix 60 mg po daily and Coreg 3.125. Consider ICD when insurance approves.Usually FU at [facility] [place] Extensive records from [facility] [place] reviewed. Per last DS 11/14/19, CMP is nonischemic presumably ETOH but patient denied ETOH use. Cardiac cath 02/07/2018 showed no CAD. Add Lisinopril 5 daily. 2. Atrial fibrillation. On Coreg 3.125 bid and Eliquis 2.5 bid 3. Hypertension. Continue current medical therapy. 4. Renal failure, creatinine of 3.3. On dobutamine drip Cr improved to 1.4. FU Dr Tucker 5. Anemia, hemoglobin of 8.3. S/P PRBC one unit 6. ETOH Cirrhosis DW RN, case management and Dr Lares DC today Subjective Subjective In atrial fib with PVCs. DC home today pending Objective Last 24 Hour Vital Signs Date Time Temp Pulse Resp B/P (MAP) Pulse Ox O2 Delivery O2 Flow Rate FiO2 03/30/20 12:00 101 03/30/20 12:00 98.2 97 18 101/65 (77) 97 03/30/20 12:00 Room Air Room Air Room Air Room Air 03/30/20 08:39 88 99/61 03/30/20 08:00 Room Air Room Air Room Air Room Air 03/30/20 08:00 97.0 88 18 99/61 (74) 97 03/30/20 08:00 96 03/30/20 04:00 97.5 88 18 97/57 (70) 99 03/30/20 04:00 Room Air Room Air Room Air Room Air 03/30/20 04:00 84 03/30/20 00:00 79 03/30/20 00:00 97.7 102 18 99/61 (74) 98 03/30/20 00:00 Room Air Room Air Room Air Room Air 03/29/20 20:00 95 03/29/20 20:00 96.9 114 18 95/58 (70) 97 03/29/20 20:00 Room Air Room Air Room Air Room Air 03/29/20 16:00 Room Air Room Air Room Air Room Air 03/29/20 16:00 97.2 88 20 93/59 (70) 96 03/29/20 15:39 98 Intake and Output 03/29/20 03/30/20 19:00 07:00 Intake Total 500 ml Balance 500 ml Intake Oral 500 ml # Voids 2 2 Laboratory Tests Test 03/30/20 08:08 White Blood Count 5.2 K/UL (4.8-10.8) Red Blood Count 3.83 M/UL (4.70-6.10) L Hemoglobin 10.0 G/DL (14.2-18.0) L Hematocrit 31.0 % (42.0-52.0) L Mean Corpuscular Volume 81 FL (80-99) Mean Corpuscular Hemoglobin 26.2 PG (27.0-31.0) L Mean Corpuscular Hemoglobin Concent 32.4 G/DL (32.0-36.0) Red Cell Distribution Width 20.2 % (11.6-14.8) H Platelet Count 295 K/UL (150-450) Mean Platelet Volume 6.4 FL (6.5-10.1) L Neutrophils (%) (Auto) 69.1 % (45.0-75.0) Lymphocytes (%) (Auto) 16.4 % (20.0-45.0) L Monocytes (%) (Auto) 11.3 % (1.0-10.0) H Eosinophils (%) (Auto) 1.1 % (0.0-3.0) Basophils (%) (Auto) 2.1 % (0.0-2.0) H Sodium Level 135 MMOL/L (136-145) L Potassium Level 3.5 MMOL/L (3.5-5.1) Chloride Level 97 MMOL/L (98-107) L Carbon Dioxide Level 29 MMOL/L (21-32) Anion Gap 10 mmol/L (5-15) Blood Urea Nitrogen 34 mg/dL (7-18) H Creatinine 1.4 MG/DL (0.55-1.30) H Estimat Glomerular Filtration Rate 51.2 mL/min (>60) Glucose Level 244 MG/DL (74-106) #H Calcium Level 9.2 MG/DL (8.5-10.1) Magnesium Level 1.9 MG/DL (1.8-2.4) Objective HEAD AND NECK: Positive JVD. LUNGS: Decreased breath sounds. CARDIOVASCULAR: Shows irregular S1 and S2 with no gallop or murmur. ABDOMEN: Soft. EXTREMITIES: 1+ pitting edema.Right groin central line oozing Jovi Luther MD March 30, 2020 13:54
[2020-03-30] MEDS ORDERED: LISINOPRIL5 MG ORAL (13:55)
[2020-03-30] MEDS ORDERED: FUROSEMIDE40 MG ORAL (13:56)
--- NOTE | 2020-03-30 14:05 | NUR ---
NURSE NOTES: Pt is ready for dc. IV removed, ID band removed. Pt is stable
[2020-03-31] MEDS ORDERED: Lisinopril 2.5mg tab ORAL SCH (09:00)
== END 2020-03-30 14:59 | disposition home or self-care (01) | DRG 194 ==
LOC: EDBD 00:35 → EMR 00:58 → EDBEDREQ 01:39 → 2W 01:48 → EDBEDREQ 09:42 → 2E 03-29 06:45
PROC: 06HM33Z Insertion of Infusion Device into Right Femoral Vein, Percutaneous Approach (ICD-10-PCS; 2020-03-23)
PROC: 30233N1 Transfusion of Nonautologous Red Blood Cells into Peripheral Vein, Percutaneous Approach (ICD-10-PCS; principal; 2020-03-24)
DX: I13.0 Hypertensive heart and chronic kidney disease with heart failure and stage 1 through stage 4 chronic kidney disease, or unspecified chronic kidney disease (principal); N17.9 Acute kidney failure, unspecified; D62 Acute posthemorrhagic anemia; I50.43 Acute on chronic combined systolic (congestive) and diastolic (congestive) heart failure; F17.200 Nicotine dependence, unspecified, uncomplicated; I48.91 Unspecified atrial fibrillation; J44.9 Chronic obstructive pulmonary disease, unspecified; E87.5 Hyperkalemia; K80.20 Calculus of gallbladder without cholecystitis without obstruction; I42.9 Cardiomyopathy, unspecified; K70.30 Alcoholic cirrhosis of liver without ascites
CPT/HCPCS: 36415; 71045; 76700; 80048; 80053; 80061; 82044; 82248; 82306; 82570; 82728; 82962; 83036; 83540; 83550; 83690; 83735; 83880; 83970; 84100; 84300; 84443; 84484; 85007; 85025; 85379; 85610; 85730; 86703; 86705; 86709; 86803; 86850; 86900; 86901; 86920; 87340; 93005; 93306; 96374; 96375; 99285; J2405